=== PATIENT | female | born 1990 | race African-American/Black ===

== ENCOUNTER 2025-02-22 12:45 | Emergency (ER) | payer SELFPAY ==
[2025-02-22 12:49] VITALS: BP 146/95; PULSE 66; RESP 16; TEMP 36.6; O2SAT 100
--- NOTE | 2025-02-22 12:57 | ED.URI ---
HPI - URI/Sore Throat General Chief Complaint: Upper Respiratory Infection Stated Complaint: URI Time Seen by Provider: 02/22/25 12:55 Focused HPI: Patient is a 34-year-old female presents to the ER with a 2 day history of headache, dizziness, and abdominal discomfort. She reports her daughter has had the same symptoms for 1 extra day. Patient reports her daughter has had a fever and sore throat. She endorses a history of high blood pressure, sleep apnea, bariatric surgery, and asthma. Patient denies any recent wheezing, cough, or shortness of breath. GENERAL: Well-appearing, well-nourished, and in no acute distress. HEAD: Normocephalic, atraumatic. CHEST: Clear to auscultation. ?No respiratory distress. HEART: Regular rate and rhythm.? NEURO: ?Alert and oriented x3. Patient screened in triage and initial orders placed.? ?Additional care and disposition to be based upon?diagnostic testing and treatment. Related Data Allergies Allergy/AdvReac Type Severity Reaction Status Date / Time No Known Allergies Allergy Verified 02/22/25 12:51 Course Vital Signs Vital signs: Vital Signs Temperature 36.6 C 02/22/25 12:49 Pulse Rate 66 02/22/25 12:49 Respiratory Rate 16 02/22/25 12:49 Blood Pressure 146/95 H 02/22/25 12:49 Pulse Oximetry 100 02/22/25 12:49 Oxygen Delivery Room Air 02/22/25 12:49 Temperature 36.6 C 02/22/25 12:49 Pulse Rate 66 02/22/25 12:49 Respiratory Rate 16 02/22/25 12:49 Blood Pressure 146/95 H 02/22/25 12:49 Pulse Oximetry 100 02/22/25 12:49 Oxygen Delivery Room Air 02/22/25 12:49 MDM - URI/Sore Throat Lab Data Labs: Lab Results 02/22/25 Range/Units 13:00 Influenza A (RT-PCR) Negative (Negative) Influenza B (RT-PCR) Negative (Negative) RSV (RT-PCR) Negative (Negative) SARS-CoV-2 RNA (RT-PCR) Negative (Negative) Group A Strep (PCR) Not detected (Negative) Discharge Plan Discharge Clinical Impression: Viral infection, Upper respiratory infection Patient Disposition: Home Condition: Stable Instructions: Antibiotic Form, Viral Syndrome (ED), Cold Symptoms (ED) Patient Language: Maltese Prescriptions: New ondansetron 4 mg tablet,disintegrating 4 mg PO Q8H PRN (Reason: nausea and vomiting) Qty: 14 0RF naproxen [Naprosyn] 500 mg tablet 500 mg PO BID Qty: 20 0RF Follow-up/Referrals: PHYSICIAN NOT ON STAFF,NONSTAFF [Non-Staff] - Stand Alone Forms: Work/School Release IP
[2025-02-22 13:35] LABS: Strep Group A RT-PCR NOT DETECTED (Negative)
[2025-02-22 13:46] LABS: Influenza A QL RT-PCR Negative (Negative); Influenza B QL RT-PCR Negative (Negative); RSV RNA, RT-PCR Negative (Negative); SARS-CoV-2 RNA PCR Negative (Negative)
--- NOTE | 2025-02-22 14:29 | ED_ITS ---
HPI - URI/Sore Throat General Chief Complaint: Upper Respiratory Infection Stated Complaint: URI Time Seen by Provider: 02/22/25 12:55 History of Present Illness HPI Narrative: Pt presents with nasal congestion, sore throat, body aches and nausea for 2 days. Daughter has similar symptoms. Pt denies fever or cough or urinary symptoms. Pt is not vomiting and denies diarrhea. Related Data Allergies Allergy/AdvReac Type Severity Reaction Status Date / Time No Known Allergies Allergy Verified 02/22/25 12:51 Review of Systems Review of Systems: All systems reviewed & are unremarkable except as noted in HPI and below Exam Const: General: healthy appearing and no acute distress Nutritional Appearance: well nourished Orientation/consciousness: patient oriented x3 Limitations: no limitations HENMT: Head: normal to inspection Ears: TM's normal bilaterally Face/Nose/Sinus: Nasal discharge present Face and sinus: normal facial exam Mouth: Yes Normal oral and palatal mucosa present and Yes moist mucous mem branes Other: mild pharyngeal erythema no exudate Eyes: EOM: EOMs intact bilaterally Resp: Effort & Inspection: normal respiratory effort Auscultation: clear to auscultation bilaterally Cardio: Rate: regular rate Rhythm: regular rhythm GI: GI Palp: Yes Soft to palpation and No Tenderness to palpation present (GI) Auscultation: normal bowel sounds Back/Spine/Pelvis: Back: no CVA tenderness Skin: General skin exam: normal color Rashes: no rashes Wounds: no wounds Neuro: General: patient oriented x3, moves all extremities, no meningeal signs and no focal motor deficits Speech: normal speech Extrem: General: normal to inspection and no clubbing, cyanosis or edema Psych: Mental Status: mental status grossly normal Affect: normal affect Attitude: cooperative Course Vital Signs Vital signs: Vital Signs Temperature 97.9 F 02/22/25 12:49 Pulse Rate 66 02/22/25 12:49 Respiratory Rate 16 02/22/25 12:49 Blood Pressure 146/95 H 02/22/25 12:49 Pulse Oximetry 100 02/22/25 12:49 Oxygen Delivery Room Air 02/22/25 12:49 Temperature 97.9 F 02/22/25 12:49 Pulse Rate 66 02/22/25 12:49 Respiratory Rate 16 02/22/25 12:49 Blood Pressure 146/95 H 02/22/25 12:49 Pulse Oximetry 100 02/22/25 12:49 Oxygen Delivery Room Air 02/22/25 12:49 MDM - URI/Sore Throat MDM Narrative Medical decision making narrative: Pt presents with st body aches and nausea, strep and covid,flu, rsv swabs neg. likely viral uri. will prescribe some zofran and naprosyn and give pt 3 days off. Lab Data Labs: Lab Results 02/22/25 Range/Units 13:00 Influenza A (RT-PCR) Negative (Negative) Influenza B (RT-PCR) Negative (Negative) RSV (RT-PCR) Negative (Negative) SARS-CoV-2 RNA (RT-PCR) Negative (Negative) Group A Strep (PCR) Not detected (Negative) Discharge Plan Discharge Clinical Impression: Viral infection, Upper respiratory infection Patient Disposition: Home Condition: Stable Instructions: Antibiotic Form, Viral Syndrome (ED), Cold Symptoms (ED) Patient Language: Iranian Prescriptions: New ondansetron 4 mg tablet,disintegrating 4 mg PO Q8H PRN (Reason: nausea and vomiting) Qty: 14 0RF naproxen [Naprosyn] 500 mg tablet 500 mg PO BID Qty: 20 0RF Follow-up/Referrals: PHYSICIAN NOT ON STAFF,NONSTAFF [Non-Staff] - Stand Alone Forms: Work/School Release IP
--- OUTSIDE RECORDS SUMMARY | 2025-02-22 14:58 | XMS_ITS | Encounter Summary ---
Author Organization [facility] Address [address] [place] [address] Care Team Providers Care Steel Manager Name Role Phone Henry Suarez MD Unavailable Love Diaz BEHAVIORAL HEALTH TECH-HELPER ANIMAL LABORATORY Primary Care Provider + Love Diaz BEHAVIORAL HEALTH TECH-HELPER ANIMAL LABORATORY Unavailable [phone] Deyanira De La Fuente RN Unavailable Anabell Thompson MD Primary Care Provider Love Diaz BEHAVIORAL HEALTH TECH-HELPER ANIMAL LABORATORY Primary Care Provider + Aiyana Esposito Unavailable [phone] Reason for Visit * Reason Onset Date Comments Surgery Scheduling 11/13/2023 Pt has Flu, w ould like a Nurse call to discuss upcoming Surgery on Thursday11.16.23, Encounter Details Date Type Department Care Team (Late st Contact Info) Description 11/13/2023 Telephone [facility] - HOSPITAL ADMINISTRATIVE ASSISTANT [address] [place] [address] Izabella Inman MD [address] [facility] [address] [place] [address] Surgery Scheduling (Pt has Flu, would like a Nurse call to discuss upcoming Surgery on Thursday11.16.23, ) Social History Tobacco Use Types Packs/Day Years Used Date Smoking Tobacco: Never Smokeless Tobacco: Never Alcohol Use Standard Drinks/Week Comments Not Currently 0 (1 standard drink = 0.6 oz pur e alcohol) rare Overall Financial Resource Strain (CARDIA) Answe r Date Recorded How hard is it for you to pa y for the very basics like food, housing, medical care, and heating? Not hard at all 04/13/2023 PHQ-2 Answer Date Recorded Patient Health Questionnaire-2 Score 0 11/10/2023 [facility] of Occupat ional Health - Occupational Stress Questionnaire Answer Date Recorded Do you feel stress - tense, restless, nervous, or anxious, or unable to sleep at night because your mind is troubled all the time - these days? Not at all 04/13/2023 Hunger Vital Sign Answer Date Recorded Within the past 12 months, y ou worried that your food would run out before you got the money to buy more. Never true 04/13/20 23 Within the past 12 months, t he food you bought just didn't last and you didn't have money to get more. Never true 04/13/2023 PRAPARE - Transportation Answer Date Re corded In the past 12 months, has l ack of transportation kept you from medical appointments or from getting medications? No 04/03 In the past 12 months, has l ack of transportation kept you from meetings, work, or from getting things needed for daily living? No 04/13/2023 Housing Stability Vital Sign Answer Eloy e Recorded In the last 12 months, was t here a time when you were not able to pay the mortgage or rent on time? No 04/13/2023 In the last 12 months, how many places have you lived? 1 04/13/2023 In the last 12 months, was t here a time when you did not have a steady place to sleep or slept in a care home (including now)? No 04/13/2023 Comments No Sex and Gender Information Value Date Recorded Sex Assigned at Not on file Legal Sex Female 5:36 AM CALCINER OPERATOR Gender Identity Not on file Sexual Orientation Not on file documented as of this encounter Functional Status * Is person deaf or have serious hearing difficulty? Answer Date of Assessment Author No 04/13/2023 2:30 PM Doug Crane, RN * Is person blind or have serious difficulty seeing? Answer Date of Assessment Author No 04/13/2023 2:30 PM CDT Doug Bell RN * Does person have serious difficulty walking/climbing stairs? Answer Date of Assessment Author No 04/13/2023 2:30 PM CDT Doug Bell RN * Does person have difficulty dressing/bathing? Answer Date of Assessment Author No 04/13/2023 2:30 PM CDT Doug Bell RN * Does person have difficulty doing errands alone? Answer Date of Assessment Author No 04/13/2023 2:30 PM CDT Doug Bell RN documented as of this encounter Mental Status * Does person have difficulty concentrating/remembering/making decisions? Answer Entry Date Author No 04/13/2023 2:30 PM CDT Doug Bell RN documented in this encounter Miscellaneous Notes * Telephone Encounter - Ochoa Polk - 11/13/2023 4:32 PM CDT Left a message on patient's voicemail stating to not arrive to hospital on Wednesday 11/15 for procedure. I informed her that I will call the OR first thing Thursday morning to cancel and then I will call her to r/s for a later date. * Telephone Encounter - Isreal Last - 11/13/2023 3:57 PM CDT Pt has Flu, would like a Nurse call to discuss upcoming Surgery on 11.15.24, Pls call to determine if shd still come in, thank you. documented in this encounter Plan of Treatment Upcoming Encounters Date Type Department Care Team (Late st Contact Info) Description 04/19/2025 8:00 AM CDT Office Visit [facility] Medical [facility] - Pulmonology [address] [place] [address] Mario Decker MD [address] [place] [phone] 05/16/2025 8:20 AM CDT Office Visit [facility] - Family Medicine [address] [place] [address] Love Diaz, BEHAVIORAL HEALTH TECH-HELPER ANIMAL LABORATORY [address] [place] [address] documented as of this encounter Visit Diagnoses Not on filedocumented in this encounter Additional Health Concerns Infection Onset Date Last Indicated Resolved Time Influenza A or B 11/10/2023 11/10/2023 11/17/2023 4:33 AM CDT COVID-19 Under Investigation 09/06/2024 09/06/2024 09/06/2024 4:15 PM CALCINER OPERATOR documented as of this encounter Care Teams Steel Manager Relationship Specialty Start Date End Date Love Diaz, BEHAVIORAL HEALTH TECH-HELPER ANIMAL LABORATORY [address] [place] [address] PCP - General Nurse Practitioner 09/15/23 02/15/24 Love Diaz, BEHAVIORAL HEALTH TECH-HELPER ANIMAL LABORATORY [address] [place] [address] PCP - Attributed-[facility] STL 08/03/23 Anabell Thompson MD [address] [place] [address] PCP - General Internal Medicine 02/16/24 02/16/24 Love Diaz, BEHAVIORAL HEALTH TECH-HELPER ANIMAL LABORATORY [address] [place] [address] PCP - General Nurse Practitioner 02/17/24 Henry Suarez MD [id number] [place] [id number] Nurse Clinical Cardiovascular Disease 12/01/22 Deyanira De La Fuente, RN File KeeperDraw Bench Operator Helper 01/05/24 02/08/24 Aiyana Esposito Care Coordination Specialist Care Management 11/15/24 12/30/24 documented as of this encounter
--- OUTSIDE RECORDS SUMMARY | 2025-02-22 14:58 | XMS_ITS | Clinical Summary ---
Author Organization [facility] Address [facility] [place] [address] Care Team Providers Care Ship Design Teacher Name Role Phone Love Diaz NP Primary Care Provider [phone] Allergies No known active allergies Medications labetalol 200 MG tablet Take 400 mg by mouth 2 (two) times daily. Active lisinopril 20 MG tablet Take 20 mg by mouth 2 (two) times daily. 04/16/2020 Active metoprolol succinate ER 50 MG 24 hr tablet Take 50 mg by mouth 2 (two) times daily. 03/11/2020 Active pantoprazole EC 40 MG tablet Take 40 mg by mouth 2 (two) times daily. 04/12/2020 Active guaiFENesin ER (MUCINEX) 600 MG 12 hr tablet Take 2 tablets (1,200 mg total) by mouth 2 (two) times daily. 28 tablet 07/06/2022 Active albuterol sulfate HFA 108 (90 Base) MCG/ACT inhaler Inhale 2 puffs into the lungs every 6 (six) hours as needed for Wheezing. 8 g 07/06/2022 Active Active Problems No known active problems Social History Tobacco Use Types Packs/Day Years Used Date Smoking Tobacco: Never Passive Smoke Exposure: Never Smokeless Tobacco: Never Tobacco Cessation:Counseling Given: Not Answered Alcohol Use Standard Drinks/Week Comments Not Currently 0 (1 standard drink = 0.6 oz pur e alcohol) socially Comments No Sex and Gender Information Value Date Recorded Sex Assigned at Female 09/30/2024 2:20 PM SENIOR INTEGRATION DEVELOPER Legal Sex Female 11:16 PM CDT Gender Identity Not on file Sexual Orientation Not on file Last Filed Vital Signs Vital Sign Reading Time Taken Comments Blood Pressure 148/95 09/30/2024 5:00 PM SENIOR INTEGRATION DEVELOPER Pulse 93 09/30/2024 5:00 PM SENIOR INTEGRATION DEVELOPER Temperature 36.1 C (97 F) 09/30/2024 2:09 PM SENIOR INTEGRATION DEVELOPER Respiratory Rate 16 09/30/2024 5:00 PM SENIOR INTEGRATION DEVELOPER Oxygen Saturation 100% 09/30/2024 5:00 PM SENIOR INTEGRATION DEVELOPER Inhaled Oxygen Concentration - - Weight 124.7 kg (275 lb) 09/30/2024 2:09 PM SENIOR INTEGRATION DEVELOPER Height 167.6 cm (5' 6) 09/30/2024 2:09 PM SENIOR INTEGRATION DEVELOPER Body Mass Index 44.39 09/30/2024 2:09 PM SENIOR INTEGRATION DEVELOPER Plan of Treatment Health Maintenance Due Date Last Done Comments Annual Physical 1992 Hepatitis B Vaccines (1 of 3 - 19+ 3-dose series) 2008 Pneumococcal Vaccine: Pediatrics (0 to 5 Years) and At-Risk Patients (6 to 49 Years) (1 of 2 - PCV) 2008 HPV Vaccines (1 - 3-dose SCDM series) 2016 COVID-19 Vaccine (3 - 2023- season) 2024 02/20/2021, 12/10/2020 Cervical Cancer Screening Pap Smear (Age 30 to 64) Every 3 Years 09/24/2025 09/24/2022 DTaP, Tdap and Td Vaccines (5 - Td or Tdap) 09/08/2027 09/08/2017, 03/27/1995, 04/18/1994, Additional history exists Cervical Cancer Screening Pap with HPV Testing (Age 30 to 64) Every 5 Years 09/24/2027 09/24/2022 Cervical Cancer Screening with HPV 09/24/2027 Hepatitis C Completed 02/13/2024 Meningococcal B Vaccine Aged Out No l onger eligible based on patient's age to complete this topic Meningococcal Vaccine Aged Out No ezra wade eligible based on patient's age to complete this topic RSV Immunizations Under 20 Months Aged Out No longer eligible based on patient's age to complete this topic Insurance [employer] Care Teams Ship Design Teacher Relationship Specialty Start Date End Date Love Diaz NP [address] [place] [address] [address] [place] [address] PCP - General Nurse Practitioner Family 09/30/24
--- OUTSIDE RECORDS SUMMARY | 2025-02-22 14:58 | XMS_ITS | Encounter Summary ---
Author Organization [facility] Address [address] [address] Care Team Providers Care Guinea Pig Breeder Name Role Phone Henry Suarez MD Unavailable [phone] Love Diaz MACHINE ADJUSTER LEADER-POST CLOSING SPECIALIST Unavailable [phone] Love Diaz MACHINE ADJUSTER LEADER-POST CLOSING SPECIALIST Primary Care Provider + Reason for Visit * Reason Onset Date Comments Referral 02/15/2025 Encounter Details Date Type Department Care Team (Late st Contact Info) Description 02/15/2025 Telephone [facility] Breast Care [facility] [place], [place] [id number] Tiera Rangel, priming mixture carrier Social History Tobacco Use Types Packs/Day Years Used Date Smoking Tobacco: Never Smokeless Tobacco: Never Alcohol Use Standard Drinks/Week Comments Yes 0 (1 standard drink = 0.6 oz pur e alcohol) socially- less than monthly Overall Financial Resource Strain (CARDIA) Answe r Date Recorded How hard is it for you to pa y for the very basics like food, housing, medical care, and heating? Not hard at all 04/13/2023 PHQ-2 Answer Date Recorded Patient Health Questionnaire-2 Score 1 02/09/2025 [facility] [place] of Occupat ional Health - Occupational Stress [...] place to sleep or slept in a assisted (including now)? No 04/13/2023 Comments No Sex and Gender Information Value Date Recorded Sex Assigned at Not on file Legal Sex Female 5:36 AM POLICE ACADEMY PROGRAM COORDINATOR Gender Identity Not on file Sexual Orientation Not on file documented as of this encounter Functional Status * Is person deaf or have serious hearing difficulty? Answer Date of Assessment Author No 04/13/2023 2:30 PM CDT Doug Bell, GARCIA * Is person blind or have serious difficulty seeing? Answer Date of Assessment Author No 04/13/2023 2:30 PM LEXIIT Doug Bell, GARCIA * Does person have serious difficulty walking/climbing stairs? Answer Date of Assessment Author No 04/13/2023 2:30 PM LEXIIT Doug Bell, RN * Does person have difficulty dressing/bathing? Answer Date of Assessment Author No 04/13/2023 2:30 PM Doug Crane RN * Does person have difficulty doing errands alone? Answer Date of Assessment Author No 04/13/2023 2:30 PM Doug Crane RN documented as of this encounter Mental Status * Does person have difficulty concentrating/remembering/making decisions? Answer Entry Date Author No 04/13/2023 2:30 PM CDT Doug Bell RN documented in this encounter Miscellaneous Notes * Telephone Encounter - Tiera Rangel RN - 02/15/2025 2:51 PM CDT Love Diaz referral; called patient for formal risk assessment and scheduling with breast specialist. No answer, LVM with CB info. Called and left another , MCM sent, provider notified. documented in this encounter Plan of Treatment Upcoming Encounters Date Type Department Care Team (Late st Contact Info) Description 04/19/2025 8:00 AM CDT Office Visit [facility] - Pulmonology [address] [place] [phone] Mario Decker MD [address] [place] [id number] 05/16/2025 8:20 AM CDT Office Visit [facility] - Family Medicine [address] [place] [address] Love Diaz APRN-CNP [address] [place] [address] documented as of this encounter Visit Diagnoses Not on filedocumented in this encounter Care Teams Guinea Pig Breeder Relationship Specialty Start Date End Date Love Diaz APRN-POST CLOSING SPECIALIST [address] [place] [address] PCP - Attributed-[facility] STL 08/03/23 Love Diaz APRN-POST CLOSING SPECIALIST [address] [place] [phone] PCP - General Nurse Practitioner 02/17/24 [place] [id number] [address] Flame Gouger Cardiovascular Disease 12/01/22 documented as of this encounter
--- OUTSIDE RECORDS SUMMARY | 2025-02-22 14:58 | XMS_ITS | Clinical Summary ---
Author Organization [email or web address] Esa Michael Address [address] [facility] [place] [address] Phone Care Team Providers Care Tie Carrier Name Role Phone Unavailable Primary Care Provider Unavailabl e Allergies Active Allergy Reactions Criticality Noted Date Comments Pineapple Itching,Swelling Medium 01/01/2022 Fresh pineapple only Fresh pineapple only Fresh pineapple only Shellfish Containing Products Itching,Swelling Medium 01/01/2022 Fresh shrimp only Tree Nuts Other (See Comments),Swelling Medium 01/01/2022 Positive on an allergy test Other reaction(s): Other (See Comments) Positive on an allergy test Medications benzonatate (TESSALON) 100 mg capsule Take 100 mg by mouth 3 times daily. Active albuterol sulfate HFA 90 mcg/actuation aerosol inhaler Take 2 Puffs by inhalation. 2 Active amLODIPine (NORVASC) 10 mg tablet Take 10 mg by mouth daily. 1 Active ascorbic acid, vitamin C, (VITAMIN C) 1,000 mg Tablet Take 1,000 mg by mouth daily. Active cetirizine (ZyrTEC) 10 mg tablet Take 10 mg by mouth daily. 3 Active EPINEPHrine (EPIPEN) 0.3 mg/0.3 mL Auto-Injector Inject 0.3 mg by intramuscular injection. 3 Active hydroCHLOROthi azide 12.5 mg tablet Take 12.5 mg by mouth daily. 3 Active lisinopriL (PRINIVIL) 20 mg tablet Take 1 Tablet by mouth 2 times daily. 1 Active magnesium hydroxide (MILK OF MAGNESIA) 400 mg/5 mL suspension Take 15 mL by mouth daily. 3 Active meloxicam (MOBIC) 7.5 mg tablet Take 7.5 mg by mouth. 3 Active metoprolol succinate (TOPROL XL) 50 mg Extended Release 24 hour tablet Take 75 mg by mouth 2 times daily. 1 Active omeprazole (PriLOSEC) 40 mg Capsule, Delayed Release(E.C.) TAKE 1 CAPSULE (40 MG) BY MOUTH TWICE A DAY 1 Active ondansetron (ZOFRAN ODT) 4 mg Tablet, Rapid Dissolve Take 4 mg by mouth every 6 hours as needed. 0 Active labetaloL (NORMODYNE) 200 mg tablet Take 400 mg by mouth 2 times daily. Active Active Problems Problem Noted Date Diagnosed Date Morbid obesity 07/10/2023 Gastroesophageal reflux disease 07/10/2023 Moderate recurrent major depression 07/10/2023 Mild intermittent asthma without complication Overview (07/10/2023): Last Assessment & Plan: Chronic, stable, controlled with PRN inhaler-continued on albuterol as directed as needed. Last Assessment & Plan: Chronic, stable, controlled with PRN inhaler-continued on albuterol as directed as needed. Fatigue 07/07/2023 S/P gastric bypass 04/13/2023 Physical exam, annual 12/28/2022 Overview (07/10/2023): Last Assessment & Plan: Reviewed past and current medical history, surgical history, social history, family history, current medications, and allergies. A ROS and PE were performed. Medications were refilled. Discussed well woman exam/cervical cancer screening, monthly breast self-exams, and recommended immunizations. Patient will follow-up in 6 months for further evaluation and management or sooner if needed. Prediabetes 09/09/2022 Overview (07/10/2023): Last Assessment & Plan: Chronicity and stability unknown, contemplating weight loss surgery-encouraged weight loss and avoidance of high carbohydrate diet, with a goal of at least 150 minutes of exercise/week. Last Assessment & Plan: Chronicity and stability unknown, contemplating weight loss surgery-encouraged weight loss and avoidance of high carbohydrate diet, with a goal of at least 150 minutes of exercise/week. Thrombocythemia 08/12/2022 Overview (07/10/2023): Last Assessment & Plan: Chronic, stable-encouraged to schedule appointment with fire hose curer, previously referred. Last Assessment & Plan: Chronic, stable-encouraged to schedule appointment with fire hose curer, previously referred. Myelolipoma of right adrenal gland 08/07/2022 Overview (07/10/2023): Last Assessment & Plan: Chronicity and stability unknown-encouraged follow-up with wide area network engineer as recommended. Last Assessment & Plan: Chronicity and stability unknown-encouraged follow-up with wide area network engineer as recommended. Female hirsutism 08/07/2022 Overview (07/10/2023): Last Assessment & Plan: Chronic, stable-advised to follow with meat packer and wide area network engineer as recommended. Last Assessment & Plan: Chronic, stable-advised to follow with meat packer and wide area network engineer as recommended. Seasonal rhinitis 01/03/2022 Overview (07/10/2023): Last Assessment & Plan: Chronic, stable, controlled with medication-continued on cetirizine. Last Assessment & Plan: Chronic, stable, controlled with medication-continued on cetirizine. Morbid obesity with BMI of 50.0-59.9, adult 05/0 01/2022 Overview (07/10/2023): Last Assessment & Plan: Chronic, with recent 12 lb weight loss s/p gastric bypass surgery, on post- operative day #3 Encouraged to keep scheduled follow-up visit with surgeon Instructed to monitor blood pressure twice daily, explained that with further weight loss it is highly likely that her blood pressure medication will require periodic adjustments in dose, and that she may be able to come off of one or more of her medications in time Class 3 severe obesity due t o excess calories with serious comorbidity and body mass index (BMI) of 50.0 to 59.9 in adult 12/06/2021 Overview (07/10/2023): Last Assessment & Plan: Chronic, with recent 12 lb weight loss s/p gastric bypass surgery, on post- operative day #3 Encouraged to keep scheduled follow-up visit with surgeon Instructed to monitor blood pressure twice daily, explained that with further weight loss it is highly likely that her blood pressure medication will require periodic adjustments in dose, and that she may be able to come off of one or more of her medications in time Chest tightness 09/04/2021 Overview (07/10/2023): Last Assessment & Plan: Chronic, episodic-encouraged to follow-up with human resources intern and manager telecom as recommended. Last Assessment & Plan: Chronic, episodic-encouraged to follow-up with human resources intern and manager telecom as recommended. Suspected COVID-19 virus infection 08/22/2021 Overview (07/10/2023): Last Assessment & Plan: Recommended symptomatic treatment with [id number] medications and reminded can use albuterol inhaler (already has) as directed as needed for shortness of breath and chest tightness. She has fulfilled the isolation requirements recommended by the CDC, however advised to continue to isolate until results of PCR testing are known (rapid COVID 19 test negative), and if positive, recommended wearing a mask at a minumum through Thursday when around other people. Instructed to go to ER for worsening symptoms, otherwise follow-up with PCP if symptoms are not improving. Menses, irregular 08/09/2021 Overview (07/10/2023): Last Assessment & Plan: Chronic, controlled-continued on norethindrone. Encouraged follow-up with meat packer as recommended. Last Assessment & Plan: Chronic, controlled-continued on norethindrone. Encouraged follow-up with meat packer as recommended. Other constipation 07/02/2021 Overview (07/10/2023): Last Assessment & Plan: Chronic, stable, likely related to daily iron supplement-recommended 1-2 Colace HS as needed. Last Assessment & Plan: Chronic, episodic, not currently on daily medication-encouraged to use MiraLax as directed as needed. Last Assessment & Plan: Chronic, stable, likely related to daily iron supplement-recommended 1-2 Colace HS as needed. Last Assessment & Plan: Chronic, episodic, not currently on daily medication-encouraged to use MiraLax as directed as needed. ROSE (generalized anxiety disorder) 07/02/2021 Overview (07/10/2023): Last Assessment & Plan: Chronic, stable, controlled with medication-continued on Lexapro. Encouraged follow-up with Psychiatry as recommended. Last Assessment & Plan: Chronic, stable, controlled with medication-continued on Lexapro. Encouraged follow-up with Psychiatry as recommended. Bilateral low back pain with right-sided sciatic a 07/02/2021 Overview (07/10/2023): Last Assessment & Plan: Chronic, episodic, with worsening upper right thigh pain-ordered x-ray of lumbar spine and right hip. Last Assessment & Plan: Chronic, stable, controlled with PRN medication-advised can take Tylenol as directed as needed. Last Assessment & Plan: Chronic, episodic, with worsening upper right thigh pain-ordered x-ray of lumbar spine and right hip. Last Assessment & Plan: Chronic, stable, controlled with PRN medication-advised can take Tylenol as directed as needed. Bilateral lower extremity edema 07/02/2021 Overview (07/10/2023): Last Assessment & Plan: Chronic, stable, controlled with medication-continued on hydrochlorothiazide. Last Assessment & Plan: Chronic, stable, controlled with medication-continued on hydrochlorothiazide. Moderate episode of recurrent major depressive d isorder 12/28/2020 Overview (07/10/2023): Last Assessment & Plan: Chronic, stable, controlled with medication-continued on Lexapro. Encouraged follow-up with Psychiatry as recommended. Last Assessment & Plan: Chronic, stable, controlled with medication-continued on Lexapro. Encouraged follow-up with Psychiatry as recommended. Anxiety disorder 12/28/2020 Gastroesophageal reflux dise ase with esophagitis without hemorrhage 08/03/2020 Overview (07/10/2023): Last Assessment & Plan: Continue your pantoprazole BID Pepcid [place] diet. Last Assessment & Plan: Chronic, stable, controlled with medication-continued on sucralfate, pantoprazole, and famotidine. Advised to follow-up with vocational teacher as recommended. Last Assessment & Plan: Continue your pantoprazole BID Pepcid [place] diet. Last Assessment & Plan: Chronic, stable, controlled with medication-continued on sucralfate, pantoprazole, and famotidine. Advised to follow-up with vocational teacher as recommended. Shortness of breath 05/03/2020 Overview (07/10/2023): Last Assessment & Plan: Chronic, stable, likely multifactorial-continued on albuterol as directed as needed. Advised to follow-up with human resources intern and manager telecom as recommended. Encouraged weight loss. Anemia 05/03/2020 Overview (07/10/2023): Last Assessment & Plan: Chronic, controlled at last check, not on multivitamin or iron supplement-will monitor CBC periodically. Last Assessment & Plan: Chronic, controlled at last check, not on multivitamin or iron supplement-will monitor CBC periodically. Essential hypertension 03/01/2020 Overview (07/10/2023): Last Assessment & Plan: Chronic, stable, controlled on medication Continue on amlodipine, lisinopril, and metoprolol XL, no adjustments made in dose of medication Encouraged to monitor blood pressure twice daily, notifying office if getting readings <110 systolic and/or < 60 diastolic Instructed to keep follow up with surgeon as scheduled and to follow-up in office for blood pressure check the following week, sooner if needed Recommended monitoring blood pressure twice daily, explained that with further weight loss it is highly likely that her blood pressure medication will require periodic adjustments in dose, and that she may be able to come off of one or more of her medications in time Last Assessment & Plan: Chronic, stable, controlled on medication Continue on amlodipine, lisinopril, and metoprolol XL, no adjustments made in dose of medication Encouraged to monitor blood pressure twice daily, notifying office if getting readings <110 systolic and/or < 60 diastolic Instructed to keep follow up with surgeon as scheduled and to follow-up in office for blood pressure check the following week, sooner if needed Recommended monitoring blood pressure twice daily, explained that with further weight loss it is highly likely that her blood pressure medication will require periodic adjustments in dose, and that she may be able to come off of one or more of her medications in time Pulmonary hypertension 12/12/2019 Overview (07/10/2023): Last Assessment & Plan: Chronicity and stability unknown-encouraged to follow-up with cardiology and pulmonology as recommended. Last Assessment & Plan: Chronicity and stability unknown-encouraged to follow-up with cardiology and pulmonology as recommended. Palpitations 12/12/2019 Overview (07/10/2023): Last Assessment & Plan: Chronic, episodic-encouraged to follow-up with human resources intern as recommended. Last Assessment & Plan: Chronic, episodic-encouraged to follow-up with human resources intern as recommended. Obstructive sleep apnea 12/12/2019 Overview (07/10/2023): Last Assessment & Plan: Chronic, stability unknown-encouraged weight loss. Advised follow-up with sleep medicine as recommended. Last Assessment & Plan: Chronic, stability unknown-encouraged weight loss. Advised follow-up with sleep medicine as recommended. Encounters Date Type Department Care Team Description 02/15/2025 External Device Data [facility] Provider, Abstract 02/14/2025 External Device Data [facility] Provider, Abstract 01/17/2025 External Device Data [facility] Provider, Abstract 12/27/2024 External Device Data [facility] Provider, Abstract 12/27/2024 External Device Data [facility] Provider, Abstract 12/22/2024 External Device Data [facility] Provider, Abstract 12/21/2024 External Device Data [facility] Provider, Abstract 12/20/2024 External Device Data [facility] Provider, Abstract from Last 3 Months Family History Medical History Relation Name Comments Breast Cancer Maternal Grandmother Relation Name Status Comments Maternal Grandmother Social History Tobacco Use Types Packs/Day Years Used Date Smoking Tobacco: Never Smokeless Tobacco: Never Tobacco Cessation:Counseling Given: Not Answered Alcohol Use Standard Drinks/Week Comments Yes 0 (1 standard drink = 0.6 oz pur e alcohol) socially Comments No Sex and Gender Information Value Date Recorded Sex Assigned at Not on file Legal Sex Female 2:20 PM CDT Gender Identity Not on file Sexual Orientation Not on file Last Filed Vital Signs Vital Sign Reading Time Taken Comments Blood Pressure 138/92 10/07/2023 3:38 PM JUICE SCALEMAN Pulse 99 10/07/2023 3:38 PM JUICE SCALEMAN Temperature 36.8 C (98.3 F) 05/06/2022 5:41 PM CDT Respiratory Rate 18 10/07/2023 3:38 PM JUICE SCALEMAN Oxygen Saturation 99% 07/10/2023 9:05 AM JUICE SCALEMAN Inhaled Oxygen Concentration - - Weight 142.9 kg (315 lb) 10/07/2023 3:38 PM JUICE SCALEMAN Height 165.1 cm (5' 5) 10/07/2023 3:38 PM JUICE SCALEMAN Body Mass Index 52.42 10/07/2023 3:38 PM JUICE SCALEMAN Plan of Treatment Health Maintenance Due Date Last Done Comments Pre-Diabetes and Diabetes Screening 1989 HPV VACCINES (1 - 3-dose series) 2004 HEPATITIS B VACCINES (1 of 3 - 19+ 3-dose series) 2008 HPV/Cotest (21-29) 2010 CERVICAL CANCER SCREENING 2019 HPV/Cotest (30-65) 2019 PAP SMEAR 2019 COVID-19 Vaccine (3 - 2023-2 5 season) 2024 02/20/2021, 12/10/2020 INFLUENZA VACCINE (#1) 2025 , 06/18/2022, 06/18/2022, Additional history exists DTAP/TDAP/TD VACCINES (5 - T d or Tdap) 09/08/2027 09/08/2017, 03/27/1995, 04/18/1994, Additional history exists Insurance [facility] [id number] OUT OF NETWORK [place] [id number]
--- OUTSIDE RECORDS SUMMARY | 2025-02-22 14:58 | XMS_ITS ---
Author Organization [facility] Address [address] [place] [address] Care Team Providers [employer] Store Product Demonstrator Name Role Phone Henry Brown MD Unavailable [phone] Love Diaz NP Primary Care Provider [phone] Active Problems Problem Noted Date Diagnosed Date Abnormal resting electrocardiogram findings 11/02 Congenital umbilical hernia 11/25/2023 Sinus tachycardia 11/25/2023 Gastroesophageal reflux disease 07/10/2023 Fatigue 07/07/2023 Physical exam, annual 12/28/2022 Assessment & Plan (12/28/2022 9:46 AM CDT): Reviewed past and current medical history, surgical history, social history, family history, current medications, and allergies. A ROS and PE were performed. Medications were refilled. Discussed well woman exam/cervical cancer screening, monthly breast self-exams, and recommended immunizations. Patient will follow-up in 6 months for further evaluation and management or sooner if needed. Prediabetes 09/09/2022 Assessment & Plan (12/28/2022 9:34 AM CDT): Chronicity and stability unknown, contemplating weight loss surgery-encouraged weight loss and avoidance of high carbohydrate diet, with a goal of at least 150 minutes of exercise/week. Acanthosis nigricans 08/12/2022 Assessment & Plan (12/28/2022 9:36 AM CDT): Chronic, stable-will continue to monitor for diabetes. Encouraged weight loss. Assessment & Plan (08/12/2022 8:07 AM REGISTRATION MANAGER): Chronicity and stability unknown-patient has been referred to gynecology due to right ovarian cyst, also being seen by endocrinology for new finding of myelolipoma right adrenal gland, explained both can address concerns regarding unwanted hair growth and possible PCOS. Thrombocytosis 08/12/2022 Assessment & Plan (12/28/2022 9:35 AM CDT): Chronic, stable-encouraged to schedule appointment with public events facilities rental manager, previously referred. Assessment & Plan (08/12/2022 8:07 AM REGISTRATION MANAGER): Chronic, worsening-referred to Hematology for further evaluation and management. Female hirsutism 08/07/2022 Assessment & Plan (12/28/2022 9:37 AM CDT): Chronic, stable-advised to follow with diamond powder technician and cleaner industrial as recommended. Assessment & Plan (08/12/2022 8:05 AM REGISTRATION MANAGER): Chronic, stable-patient has been referred to gynecology due to right ovarian cyst, also being seen by endocrinology for new finding of myelolipoma right adrenal gland, explained both can address concerns regarding unwanted hair growth and possible PCOS. Myelolipoma of right adrenal gland 08/07/2022 Assessment & Plan (12/28/2022 9:36 AM CDT): Chronicity and stability unknown-encouraged follow-up with cleaner industrial as recommended. Assessment & Plan (08/12/2022 8:03 AM REGISTRATION MANAGER): Chronicity and stability unknown-reassured patient benign lesion, however referred to cleaner industrial for further evaluation and monitoring/management if needed. Seasonal rhinitis 01/03/2022 Assessment & Plan (12/28/2022 9:37 AM CDT): Chronic, stable, controlled with medication-continued on cetirizine. Assessment & Plan (01/03/2022 4:43 PM CDT): Chronic, stable, controlled with as needed medication-refills for cetirizine sent to pharmacy per patient request. Heart palpitations 12/06/2021 Assessment & Plan (12/28/2022 9:38 AM CDT): Chronic, episodic-encouraged to follow-up with mechanical unit repairer as recommended. Assessment & Plan (01/03/2022 4:40 PM CDT): Chronic, episodic, uncontrolled, with ER evaluation last night-encouraged to keep consultation appointment with Dr. Mcdowell scheduled for 01/16/2022. Assessment & Plan (12/06/2021 5:51 AM CDT): Chronic, worsening per patient report, occurring with increased frequency, EKG with normal sinus rhythm and no ischemic changes-referred to Cardiology for 2nd opinion. Class 3 severe obesity with serious comorbidity and body mass index (BMI) of 45.0 to 49.9 in adult 12/06/2021 Assessment & Plan (04/20/2023 8:52 PM CDT): Chronic, with recent 12 lb weight loss [...] or more of her medications in time Assessment & Plan (12/28/2022 9:38 AM CDT): Chronic, worsening, contemplating weight loss surgery-encouraged to monitor daily caloric intake and portion sizes and to exercise most days of the week, for goal of at least 150 minutes of exercise per week. Assessment & Plan (08/12/2022 8:04 AM REGISTRATION MANAGER): Chronic, worsening per patient report, not improving with dietary changes, however stable since 06/2022-referred to cleaner industrial for further evaluation and management. Assessment & Plan (01/03/2022 4:37 PM CDT): Chronic, stable-encouraged to schedule consultation with Dr. Ponce regarding weight loss and lifestyle management. Assessment & Plan (12/06/2021 5:54 AM CDT): Chronic, worsening, is no longer seen weight loss specialist, uncertain as to reason why-suggested patient schedule an appointment with Dr. Ponce for weight loss and lifestyle management. Chest tightness 09/04/2021 Assessment & Plan (12/28/2022 9:39 AM CDT): Chronic, episodic-encouraged to follow-up with mechanical unit repairer and biodiesel operations manager as recommended. Assessment & Plan (09/04/2021 1:30 PM REGISTRATION MANAGER): Acute, intermittent-started on prednisone 20 mg 1 tablet twice daily x5 days. Encouraged to use albuterol inhaler as directed as needed for chest tightness, wheezing. and coughing jags. Instructed to go to ER if difficulty breathing or if not getting relief of symptoms with inhaler. Voiced understanding. Menses, irregular 08/09/2021 Assessment & Plan (12/28/2022 9:39 AM CDT): Chronic, controlled-continued on norethindrone. Encouraged follow-up with diamond powder technician as recommended. ROSE (generalized anxiety disorder) 07/02/2021 Assessment & Plan (12/28/2022 9:40 AM CDT): Chronic, stable, controlled with medication-continued on Lexapro. Encouraged follow-up with Psychiatry as recommended. Assessment & Plan (01/03/2022 4:41 PM CDT): Chronic, improved on dosage adjustment, ROSE-7=5, now established with a psychiatrist-continued on Lexapro and medications per psychiatrist. Encouraged to keep recommended follow-up with psychiatrist and to discuss referral to psychologist/therapist. Instructed to go to ER if suicidal ideation or thoughts of harming self or others. Assessment & Plan (12/06/2021 5:49 AM CDT): Chronic, uncontrolled, on medication-increased Lexapro from 10 mg once daily to 20 mg once daily. Advised if she thinks she is having side effects to the medication increase, to notify office immediately. Instructed if suicidal ideation or thoughts of harming self or others, to go to ER or call 911/suicide hotline. She was previously referred to a psychologist for counseling, again advised calling insurance company for a list of providers, then calling provider to schedule an appointment. Again, recommended that she consider evaluation by a psychiatrist, instructing to call insurance for list of providers, then call to schedule to an appointment for evaluation. Recommended follow-up in 4 weeks. Assessment & Plan (09/04/2021 1:31 PM REGISTRATION MANAGER): Chronic, stable, uncontrolled, not on medication, referred at last visit to a psychiatrist and psychologist-encouraged to make appointment with psychiatrist and psychologist as previously discussed. Also, previous started on Lexapro which she stopped taking due to suspected side effect of low-grade fever, advised okay to restart Lexapro 10 mg once daily if desired. Assessment & Plan (07/02/2021 2:37 PM REGISTRATION MANAGER): Chronic, stable, uncontrolled, not on medication previously prescribed by another provider-advised to restart Lexapro at 5 mg daily x1 week, then to increase dose to 10 mg daily. Referred to Psychiatry and Psychology for further evaluation and management. Recommended follow-up in 4 weeks. Moderate episode of recurrent major depressive d isorder 07/02/2021 Assessment & Plan (12/28/2022 9:40 AM CDT): Chronic, stable, controlled with medication-continued on Lexapro. Encouraged follow-up with Psychiatry as recommended. Assessment & Plan (01/03/2022 4:41 PM CDT): Chronic, improved on dosage adjustment, PHQ-9=6, now established with a psychiatrist-continued on Lexapro and medications per psychiatrist. Encouraged to keep recommended follow-up with psychiatrist and to discuss referral to psychologist/therapist. Instructed to go to ER if suicidal ideation or thoughts of harming self or others. Assessment & Plan (12/06/2021 5:49 AM CDT): Chronic, uncontrolled, on medication-increased Lexapro from 10 mg once daily to 20 mg once daily. Advised if she thinks she is having side effects to the medication increase, to notify office immediately. Instructed if suicidal ideation or thoughts of harming self or others, to go to ER or call 911/suicide hotline. She was previously referred to a psychologist for counseling, again advised calling [employer] for a list of providers, then calling provider to schedule an appointment. Again, recommended that she consider evaluation by a psychiatrist, instructing to call insurance for list of providers, then to call to schedule an appointment for evaluation. Recommended follow-up in 4 weeks. Assessment & Plan (09/04/2021 1:31 PM REGISTRATION MANAGER): Chronic, stable, uncontrolled, not on medication, referred at last visit to a psychiatrist and psychologist-encouraged to make appointment with psychiatrist and psychologist as previously discussed. Also, previous started on Lexapro which she stopped taking due to suspected side effect of low-grade fever, advised okay to restart Lexapro 10 mg once daily if desired. Assessment & Plan (07/02/2021 2:37 PM REGISTRATION MANAGER): Chronic, stable, uncontrolled, not on medication previously prescribed by another provider-advised to restart Lexapro at 5 mg daily x1 week, then to increase dose to 10 mg daily. Referred to Psychiatry and Psychology for further evaluation and management. Recommended follow-up in 4 weeks. Bilateral low back pain with right-sided sciatic a 07/02/2021 Assessment & Plan (12/28/2022 9:40 AM CDT): Chronic, stable, controlled with PRN medication-advised can take Tylenol as directed as needed. Assessment & Plan (09/04/2021 1:29 PM REGISTRATION MANAGER): Chronic, currently asymptomatic, with x-rays ordered at initial/last visit- encouraged to get x-ray of lumbar spine along with x-ray of right hip for persistent right upper anterior thigh pain. Assessment & Plan (07/02/2021 2:38 PM REGISTRATION MANAGER): Chronic, episodic, with worsening upper right thigh pain-ordered x-ray of lumbar spine and right hip. Other constipation 07/02/2021 Assessment & Plan (12/28/2022 9:39 AM CDT): Chronic, episodic, not currently on daily medication-encouraged to use MiraLax as directed as needed. Assessment & Plan (07/02/2021 2:39 PM REGISTRATION MANAGER): Chronic, stable, likely related to daily iron supplement-recommended 1-2 Colace HS as needed. Bilateral lower extremity edema 07/02/2021 Assessment & Plan (12/28/2022 9:39 AM CDT): Chronic, stable, controlled with medication-continued on hydrochlorothiazide. Assessment & Plan (07/02/2021 2:40 PM REGISTRATION MANAGER): Chronic, stable, waxes and wanes per patient, on daily diuretic-continued on hydrochlorothiazide and encouraged to keep follow-up appointment with mechanical unit repairer, Dr. Brown. Gastroesophageal reflux dise ase with esophagitis without hemorrhage 08/03/2020 Assessment & Plan (12/28/2022 9:41 AM CDT): Chronic, stable, controlled with medication-continued on sucralfate, pantoprazole, and famotidine. Advised to follow-up with coal handling supervisor as recommended. Assessment & Plan (09/04/2021 1:33 PM REGISTRATION MANAGER): Chronic, stable, controlled with medication-continued on omeprazole, famotidine, and sucralfate per coal handling supervisor. Assessment & Plan (07/02/2021 2:35 PM REGISTRATION MANAGER): Chronic, stable, uncontrolled per patient report-continued on omeprazole, sucralfate, famotidine, and Zofran as directed. Encouraged to keep appointment today with coal handling supervisor to discuss symptoms. Assessment & Plan (08/03/2020 1:14 PM REGISTRATION MANAGER): Continue your pantoprazole BID Pepcid [place] diet. Shortness of breath 05/03/2020 Assessment & Plan (12/28/2022 9:41 AM CDT): Chronic, stable, likely multifactorial-continued on albuterol as directed as needed. Advised to follow-up with mechanical unit repairer and biodiesel operations manager as recommended. Encouraged weight loss. Assessment & Plan (01/03/2022 4:39 PM CDT): Chronic, stable, now established with a biodiesel operations manager with recent PFT-encouraged to keep recommended follow-up appointment with biodiesel operations manager, Dr. Lyons. Continued on albuterol inhaler as directed as needed. Assessment & Plan (12/06/2021 5:52 AM CDT): Chronic, stable, previously referred to pulmonology-advised to call to schedule an appointment. Assessment & Plan (09/04/2021 1:37 PM REGISTRATION MANAGER): Acute, intermittent-started on prednisone 20 mg 1 tablet twice daily x5 days. Encouraged to use albuterol inhaler as directed as needed for chest tightness, wheezing. and coughing jags. Instructed to go to ER if difficulty breathing or if not getting relief of symptoms with inhaler. Voiced understanding. Assessment & Plan (07/02/2021 2:32 PM REGISTRATION MANAGER): Chronic, episodic, stable, likely multifactorial, prescribed an inhaler with perceived benefit-continued on albuterol metered dose inhaler as directed as needed. Encouraged to follow-up with mechanical unit repairer, Dr. Brown, as recommended for pulmonary hypertension. Anemia 05/03/2020 Assessment & Plan (12/28/2022 9:41 AM CDT): Chronic, controlled at last check, not on multivitamin or iron supplement-will monitor CBC periodically. Assessment & Plan (09/04/2021 10:44 AM REGISTRATION MANAGER): Chronic, stable-encouraged to continue iron supplement daily. Assessment & Plan (07/02/2021 2:34 PM REGISTRATION MANAGER): Chronic, stable-reviewed with patient most recent CBC, ferritin level, folate level, iron level, and total iron binding capacity. Advised to continue ferrous sulfate 325 mg tablet daily, can take the stool softener at night for constipation. Essential hypertension 03/01/2020 Assessment & Plan (04/20/2023 8:52 PM CDT): Chronic, stable, controlled on medication Continue on [...] or more of her medications in time Assessment & Plan (12/28/2022 9:42 AM CDT): Chronic, stable, controlled with medication-continued on metoprolol XL, amlodipine, lisinopril, and hydrochlorothiazide. Encouraged follow-up with mechanical unit repairer as recommended. Assessment & Plan (08/12/2022 8:06 AM REGISTRATION MANAGER): Chronic, stable, controlled with medication-continued on metoprolol XL, amlodipine, lisinopril, and hydrochlorothiazide. Assessment & Plan (01/03/2022 4:42 PM CDT): Chronic, stable, uncontrolled on medication-continued on hydrochlorothiazide, lisinopril, metoprolol, and amlodipine. Encouraged to keep consultation appointment with mechanical unit repairer on 01/16/2022. Assessment & Plan (07/02/2021 2:31 PM REGISTRATION MANAGER): Chronic, stable, controlled on medications-continued on amlodipine, hydrochlorothiazide, lisinopril, and metoprolol. Encouraged to follow-up with mechanical unit repairer, Dr. Brown, as recommended. Pulmonary hypertension 12/12/2019 Assessment & Plan (12/28/2022 9:44 AM CDT): Chronicity and stability unknown-encouraged to follow-up with cardiology and pulmonology as recommended. Assessment & Plan (07/02/2021 2:30 PM REGISTRATION MANAGER): Chronic, stability unknown-encouraged to follow-up with mechanical unit repairer, Dr. Brown, as recommended. Sleep apnea 12/12/2019 Assessment & Plan (12/28/2022 9:43 AM CDT): Chronic, stability unknown-encouraged weight loss. Advised follow-up with sleep medicine as recommended. Assessment & Plan (07/02/2021 2:31 PM REGISTRATION MANAGER): Chronic, stability unknown-encouraged better compliance with CPAP, instructed to use nightly. 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 Assessment & Plan (01/03/2022 4:39 PM CDT): Chronic, stable, now established with a biodiesel operations manager with recent PFT-encouraged to keep recommended follow-up appointment with biodiesel operations manager, Dr. Lyons. Continued on albuterol inhaler as directed as needed. Current Treatment and Therapy Plans No current plan information found. Past Treatment and Therapy Plans No past plan information found. Lifetime Dose Tracking * Chemical Lifetime Dose Automatic Entry Manual Entr y DLP 876 mGycm 876 mGycm 0 mGycm Resolved Problems Problem Noted Date Diagnosed Date Resolved Date Acute non-recurrent maxillary sinusitis 03/11/2022 12/23/2022 Assessment & Plan (03/11/2022 5:33 PM CDT): Take medication as directed. Mucinex or Robitussin (plain without the cough suppressant or decongestant) as directed as needed. Instructed to increase clear liquids, rest, and vitamin C in diet. Advised to sleep with head elevated and use a cool mist vaporizer at bedtime for cough and congestion. Recommended follow-up if symptoms are not improving with treatment, ER for worsening or new symptoms. Dizziness 01/29/2022 12/25/2022 Assessment & Plan (01/29/2022 5:51 PM CDT): Acute, since onset of COVID-19 infection-ordered meclizine as directed as needed for dizziness. Viral URI with cough 01/03/2022 023 Acute bronchitis 09/04/2021 12/23/2022 Assessment & Plan (03/11/2022 5:33 PM CDT): Acute-recommend albuterol inhaler as directed as needed. Mucinex or Robitussin (plain without the cough suppressant or decongestant) as directed as needed. Instructed to increase clear liquids, rest, and vitamin C in diet. Advised to sleep with head elevated and use a cool mist vaporizer at bedtime for cough and congestion. Recommended follow-up if symptoms are not improving with treatment, ER for worsening or new symptoms. Assessment & Plan (09/04/2021 1:29 PM REGISTRATION MANAGER): Acute symptoms suggestive of acute bronchitis-started on azithromycin and prednisone, advised to use albuterol inhaler as directed as needed. Instructed to go to ER difficulty breathing. Patient voiced understanding. Productive cough 09/04/2021 12/23/2022 Assessment & Plan (09/04/2021 1:36 PM REGISTRATION MANAGER): Acute, sputum now white, previously yellow, but still with shortness of breath and chest tightness-started on Z-Rogers as directed as needed and prednisone 20 mg 1 tablet twice daily x5 days. Referred to biodiesel operations manager for further evaluation and management. Advised to go to ER if difficulty breathing or symptoms not relieved with albuterol inhaler. Voiced understanding. Ground glass opacity present on imaging of lung 09/04/2021 12/23/2022 Assessment & Plan (09/04/2021 1:34 PM REGISTRATION MANAGER): New finding on recent chest x-ray dated 09/01/2021, not present on x-ray dated 07/16/2021-started on Z-Rogers as directed as needed and prednisone 20 mg 1 tablet twice daily. Referred to biodiesel operations manager for furtgher evaluation and management of symptoms and abnormal chest x-ray. Suspected COVID-19 virus infection 08/22/2021 12/25/2022 Assessment & Plan (08/22/2021 12:05 PM REGISTRATION MANAGER): Recommended symptomatic treatment with [id number] medications and reminded can use albuterol inhaler (already has) as directed as needed for shortness of breath and chest tightness. She has fulfilled the isolation requirements recommended by the CDC, however advised to continue to isolate until results of PCR testing are known (rapid COVID 19 test negative), and if positive, recommended wearing a mask at a minum through Thursday when around other people. Instructed to go to ER for worsening symptoms, otherwise follow-up with PCP if symptoms are not improving. Visual disturbance 07/02/2021 Assessment & Plan (12/06/2021 5:52 AM CDT): Chronic, stable, previously referred ophthalmology-encouraged to call to schedule an appointment. Assessment & Plan (09/04/2021 1:37 PM REGISTRATION MANAGER): Acute, stable-encouraged patient to schedule an appointment with political science professor referral made at initial/last visit on 07/02/2021. Assessment & Plan (07/02/2021 2:37 PM REGISTRATION MANAGER): Acute, episodic, worsening as evidence by increased frequency-referred to political science professor for further evaluation and management. Pain of right thigh 07/02/2021 12/26/19 Assessment & Plan (09/04/2021 1:35 PM REGISTRATION MANAGER): Chronic, stable, with x-rays ordered at initial/last visit-encouraged to get x- ray of lumbar spine along with x-ray of right hip for persistent right upper anterior thigh pain. Assessment & Plan (07/02/2021 2:39 PM REGISTRATION MANAGER): Chronic, episodic, worsening-ordered x-ray of lumbar spine and right hip. COVID-19 2020 12/23/2022 Assessment & Plan (01/29/2022 2:29 PM CDT): Acute, diagnosed on 01/12/2022, 17 days ago, with waxing and waning symptoms, including dizziness and headache-a prescription for meclizine was sent to her pharmacy to take as directed as needed for dizziness. Advised can take Tylenol as directed as needed for headaches and body aches and plain Robitussin or Mucinex as directed as needed for cough, but to avoid decongestants due to high blood pressure. Recommended clear liquids, rest, and vitamin C in diet and encouraged to sleep with head elevated and use a cool mist vaporizer and Vicks VapoRub at bedtime for cough and congestion. Suggested scheduling an appointment if symptoms don't improve, ER for worsening or new symptoms develop. Provided with a note via [employer] excusing absence from work today. Assessment & Plan (08/03/2020 1:15 PM REGISTRATION MANAGER): Muscle relaxant to help her body to relax. Cyclobenzaprine 10 mg Tylenol for discomfort. Drink fluids. Assessment & Plan (2020 2:51 PM REGISTRATION MANAGER): Instructed to continue with Mucinex DM and OTC cough suppressants. Patient instructed to Self-isolate 10 days from start of symptoms Increase fluid intake Report new or worsening symptoms Warning signs warranting immediate medical care: chest pain, trouble breathing, worsening shortness of breath Acute chest pain 12/12/2019 07/02/2021 Essential hypertension 12/12/201901/05 Dyspnea and respiratory abnormalities 12/23/2022
--- OUTSIDE RECORDS SUMMARY | 2025-02-22 14:58 | XMS_ITS | Encounter Summary ---
Author Organization [facility] Address [address] [place] [address] Phone Care Team Providers Care Elementary Education Teacher Name Role Phone Tamar Guerrero MD Primary Care Provider +- [phone] Tamar Guerrero MD Primary Care Provider + [phone] No, Physician Primary Care Provider Tamar Guerrero MD Primary Care Provider +- [phone] No, Physician Primary Care Provider No, Physician Primary Care Provider Tamar Guerrero MD Primary Care Provider +- [phone] No, Physician Primary Care Provider No, Physician Primary Care Provider Tamar Guerrero MD Primary Care Provider + [phone] No, Physician Primary Care Provider Tamar Guerrero MD Primary Care Provider +- [phone] No, Physician Primary Care Provider Tamar Guerrero MD Primary Care Provider + [phone] No, Physician Primary Care Provider [phone] Tamar Guerrero MD Primary Care Provider + [phone] Tamar Guerrero MD Primary Care Provider [phone] No, Physician Primary Care Provider Tamar Guerrero MD Primary Care Provider [phone] No, Physician Primary Care Provider [phone] Tamar Guerrero MD Primary Care Provider Cheryl Wallace MD Primary Care Provider Jose Henry MD Primary Care Provider Cheryl Wallace MD Primary Care Provider Henry Brown MD Unavailable Rhonda Warren DO Primary Care Provider [phone] Allie Drake Primary Care Provider Ysabel Langston DO Primary Care Provider No, Physician Primary Care Provider Allie Drake Primary Care Provider Sandie Jordan WRIST CLOSER Primary Care Provider Unknown, Notinfile Primary Care Provider Unavail Love Rayo WRIST CLOSER Primary Care Provider [phone] Encounter Details Date Type Department Care Team (Latest Contact Info) Description 10/15/2017 Orders Only [facility] CONVERSION Scanning, Provider Social History Tobacco Use Types Packs/Day Years Used Date Smoking Tobacco: Never Comments Unknown Sex and Gender Information Value Date Recorded Sex Assigned at Not on file Legal Sex Female 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 Gender Identity Female 11/11/2021 6:04 PM CDT Sexual Orientation Not on file documented as of this encounter Plan of Treatment Not on file documented as of this encounter Procedures Procedure Name Priority Date/Time Associated Diagnosis Comments OBSTETRIC/GYNECOLOGY ULTRASONOGRAPHY REPORT 10/19/2017 12:03 PM CDT OBSTETRIC/GYNECOLOGY ULTRASONOGRAPHY REPORT 10/15/2017 1:37 PM CDT documented in this encounter Results * OBSTETRIC/GYNECOLOGY ULTRASONOGRAPHY REPORT (10/19/2017 12:03 PM CDT) Anatomical Region Laterality Modality Ultrasound us Provider Scanning IMG OB US PROCEDURES Final Res ult * OBSTETRIC/GYNECOLOGY ULTRASONOGRAPHY REPORT (10/15/2017 1:37 PM CDT) Anatomical Region Laterality Modality Ultrasound us Provider Scanning IMG OB US PROCEDURES Final Res ult documented in this encounter Visit Diagnoses Not on filedocumented in this encounter Additional Health Concerns Infection Onset Date Last Indicated Resolved Time COVID: Suspected 11/07/2019 11/07/2019 11/12/2019 4:07 PM CDT Respiratory Infection (STEPHIE), contact + droplet Comment:Automatically added due to negative COVID-19 result. 11/12/2019 11/12/2019 11/26/2019 3:0 5 AM CDT COVID: Suspected 12/02/2019 12/02/2019 12/04/2019 3:24 PM CDT Respiratory Infection (STEPHIE), contact + droplet Comment:Automatically added due to negative COVID-19 result. 12/04/2019 12/04/2019 12/18/2019 3:0 5 AM CDT COVID19 07/24/2020 07/24/2020 08/07/2020 3:07 AM SUBCONTRACT ADMINISTRATOR COVID: Recovered Comment:Added based on recent COVID infection. 08/07/2020 08/07/2020 12/05/2020 3:05 AM C DT COVID19 Comment:jul 2020 12/01/2020 01/12/2022 01/22/2022 3:05 AM C DT Exposure, COVID-19 Comment:Added automatically based on COVID19 lab answers indicating exposure risk 09/01/2021 09/01/2021 09/11/2021 3:[address] COVID: Suspected 09/01/2021 09/01/2021 09/11/2021 3:05 AM SUBCONTRACT ADMINISTRATOR COVID: Recovered Comment:Added based on recent COVID infection. 01/22/2022 01/23/2022 05/22/2022 3:05 AM C DT COVID: Suspected 03/12/2022 03/12/2022 03/12/2022 8:39 PM CDT documented as of this encounter Care Teams Elementary Education Teacher Relationship Specialty Start Date End Date Tamar Guerrero MD [address] [place] [address] PCP - General 10/15/17 10/18/17 Tamar Guerrero MD [address] [place] [address] PCP - General 10/19/17 10/20/17 No, Physician PCP - General 10/21/17 10/21/17 Tamar Guerrero MD [address] [address] PCP - General 10/22/17 10/22/17 No, Physician PCP - General 10/23/17 10/25/17 No, Physician PCP - General 10/26/17 10/28/17 Tamar Guerrero MD [address] [address] PCP - General 10/29/17 11/01/17 No, Physician PCP - General 11/02/17 11/05/17 No, Physician PCP - General 11/06/17 11/07/17 Tamar Guerrero MD [address] [place] [address] PCP - General 11/08/17 11/09/17 No, Physician PCP - General 11/10/17 11/10/17 Tamar Guerrero MD [address] [place] [address] PCP - General 11/11/17 11/11/17 No, Physician PCP - General 11/12/17 11/15/17 Tamar Guerrero MD [address] [place] [address] PCP - General 11/16/17 11/17/17 No, Physician PCP - General 11/18/17 12/02/17 Tamar Guerrero MD [address] [place] [address] PCP - General 12/03/17 12/09/17 Tamar Guerrero MD [address] [place] [address] PCP - General 12/10/17 12/10/17 No, Physician PCP - General 12/11/17 12/13/17 Tamar Guerrero MD [address] [place] [address] PCP - General 12/14/17 12/18/17 No, Physician PCP - General 12/19/17 12/20/17 Tamar Guerrero MD [address] [place] [address] PCP - General 12/21/17 10/23/19 Cheryl Wallace MD PCP - General 10/24/19 11/29/19 Jose Henry MD [address] [facility] [address] PCP - General 11/30/19 12/01/19 Cheryl Wallace MD PCP - General 12/02/19 04/28/20 Rhonda Warren DO [address] [place] [address] PCP - General 04/29/20 10/29/20 Allie Drake PA [address] [address] [address] PCP - General Family Medicine 10/30/20 11/11/20 Ysabel Langston DO [address] [place] [address] [address] PCP - General 11/12/20 02/09/21 No, Physician PCP - General 02/10/21 03/25/21 Allie Drake, NICOLE [address] [address] PCP - General Family Medicine 03/26/21 07/01/21 Sandie Jordan, WRIST CLOSER [address] [place] [address] PCP - General Family Practice 07/02/21 07/14/23 Unknown, Notinfile PCP - General 07/17/23 11/24/23 Love Diaz NP [facility] [address] PCP - General Nurse Practitioner 11/25/23 Henry Brown MD [address] [facility] [address] [address] Linen Folder Cardiology 12/07/19 documented as of this encounter
--- OUTSIDE RECORDS SUMMARY | 2025-02-22 14:58 | XMS_ITS | Referral Summary ---
Author Organization [facility] Address [address] [place] [address] Care Team Providers Care Squirrel Man Name Role Phone Henry Brown MD Unavailable [phone] Love Diaz NP Primary Care Provider [phone] Allergies Active Allergy Reactions Criticality Noted Date Comments Grass Pollen Sneezing Low 10/08/2011 Hazelnut Other (See comments) Medium 01/01/2022 Positive on an allergy test Nsaids (Non-Steroidal Anti-Inflammatory Drug) Nausea & Vomiting,Nausea And Vomiting Low 01/21/2012 Pineapple Itching,Swelling Medium 01/01/2022 Fresh pineapple only Pollen Extracts Sneezing Low 10/08/2011 Shellfish Swelling Medium 11/06/2022 Shrimp Itching,Swelling Medium 01/01/2022 Fresh shrimp only Tree Nuts Swelling Medium 11/06/2022 Medications albuterol HFA (PROVENTIL HFA,VENTOLIN HFA,PROAIR HFA) 90 mcg/actuation inhalerIndicatio ns:Hx of wheezing Inhale 2 puffs every 6 (six) hours as needed for wheezing 1 each 2 Active EPINEPHrine 0.3 mg/0.3 mL auto-injection syringeIndicatio ns:Anaphylaxis Inject 0.3 mL (0.3 mg total) into the muscle as instructed as needed for anaphylaxis Call 911 after use. 1 each 3 Active Additional Information Patient not taking.Reported on 04/16/2023 cetirizine (ZyrTEC) 10 mg tabletIndication s:Seasonal allergic rhinitis, unspecified trigger Take 1 tablet (10 mg total) by mouth daily 90 tablet [address] (PROTONIX) 40 mg EC tabletIndication s:Gastroesophage al reflux disease with esophagitis without hemorrhage Take 1 tablet (40 mg total) by mouth daily 90 tablet 1 3 Active hydroCHLOROthiaz timothy (HYDRODIURIL) 12.5 mg tabletIndication s:Essential hypertension TAKE ONE TABLET BY MOUTH ONCE DAILY 30 tablet 5 3 Active metoprolol tartrate (LOPRESSOR) 50 mg immediate release tabletIndication s:Essential hypertension,Hea rt palpitations Take 1 tablet (50 mg total) by mouth 2 (two) times a day 60 tablet 3 Active dexAMETHasone (DECADRON) 1 mg tablet take 1 mg at 11pm and go to the lab the next morning at 8am to have your blood drawn. 1 tablet 4 Active Active Problems Problem Noted Date Diagnosed [...] loss. Assessment & Plan (08/12/2022 8:07 AM EMBEDDED LINUX DEVELOPER): Chronicity and stability unknown-patient has been referred to gynecology due to right ovarian cyst, also being seen by endocrinology for new finding of myelolipoma right adrenal gland, explained both can address concerns regarding unwanted hair growth and possible PCOS. Thrombocytosis 08/12/2022 Assessment & Plan (12/28/2022 9:35 AM CDT): Chronic, stable-encouraged to schedule appointment with sound effects person, previously referred. Assessment & Plan (08/12/2022 8:07 AM EMBEDDED LINUX DEVELOPER): Chronic, worsening-referred to Hematology for further evaluation and management. Female hirsutism 08/07/2022 Assessment & Plan (12/28/2022 9:37 AM CDT): Chronic, stable-advised to follow with archaeology professor and drilling contractor as recommended. Assessment & Plan (08/12/2022 8:05 AM EMBEDDED LINUX DEVELOPER): Chronic, stable-patient has been referred to gynecology due to right ovarian cyst, also being seen by endocrinology for new finding of myelolipoma right adrenal gland, explained both can address concerns regarding unwanted hair growth and possible PCOS. Myelolipoma of right adrenal gland 08/07/2022 Assessment & Plan (12/28/2022 9:36 AM CDT): Chronicity and stability unknown-encouraged follow-up with drilling contractor as recommended. Assessment & Plan (08/12/2022 8:03 AM EMBEDDED LINUX DEVELOPER): Chronicity and stability unknown-reassured patient benign lesion, however referred to drilling contractor for further evaluation and monitoring/management if needed. Seasonal rhinitis 01/03/2022 Assessment & Plan (12/28/2022 9:37 AM CDT): Chronic, stable, controlled with medication-continued on cetirizine. Assessment & Plan (01/03/2022 4:43 PM CDT): Chronic, stable, controlled with as needed medication-refills for cetirizine sent to pharmacy per patient request. Heart palpitations 12/06/2021 Assessment & Plan (12/28/2022 9:38 AM CDT): Chronic, episodic-encouraged to follow-up with barrel drainer as recommended. Assessment & Plan (01/03/2022 4:40 [...] week. Assessment & Plan (08/12/2022 8:04 AM EMBEDDED LINUX DEVELOPER): Chronic, worsening per patient report, not improving with dietary changes, however stable since 06/2022-referred to drilling contractor for further evaluation and management. Assessment & [...] AM CDT): Chronic, episodic-encouraged to follow-up with barrel drainer and quality systems specialist as recommended. Assessment & Plan (09/04/2021 1:30 PM EMBEDDED LINUX DEVELOPER): Acute, intermittent-started on prednisone 20 mg 1 [...] Chronic, controlled-continued on norethindrone. Encouraged follow-up with archaeology professor as recommended. ROSE (generalized anxiety disorder) 07/02/2021 [...] psychologist for counseling, again advised calling insurance [employer] for a list of providers, then calling provider to schedule an appointment. Again, recommended that she consider evaluation by a psychiatrist, instructing to call insurance for list of providers, then call to schedule to an appointment for evaluation. Recommended follow-up in 4 weeks. Assessment & Plan (09/04/2021 1:31 PM EMBEDDED LINUX DEVELOPER): Chronic, stable, uncontrolled, not on medication, referred at last visit to a psychiatrist and psychologist-encouraged to make appointment with psychiatrist and psychologist as previously discussed. Also, previous started on Lexapro which she stopped taking due to suspected side effect of low-grade fever, advised okay to restart Lexapro 10 mg once daily if desired. Assessment & Plan (07/02/2021 2:37 PM EMBEDDED LINUX DEVELOPER): Chronic, stable, uncontrolled, not on medication previously [...] a psychologist for counseling, again advised calling [employer] for a list of providers, then calling provider to schedule an appointment. Again, recommended that she consider evaluation by a psychiatrist, instructing to call insurance for list of providers, then to call to schedule an appointment for evaluation. Recommended follow-up in 4 weeks. Assessment & Plan (09/04/2021 1:31 PM EMBEDDED LINUX DEVELOPER): Chronic, stable, uncontrolled, not on medication, referred at last visit to a psychiatrist and psychologist-encouraged to make appointment with psychiatrist and psychologist as previously discussed. Also, previous started on Lexapro which she stopped taking due to suspected side effect of low-grade fever, advised okay to restart Lexapro 10 mg once daily if desired. Assessment & Plan (07/02/2021 2:37 PM EMBEDDED LINUX DEVELOPER): Chronic, stable, uncontrolled, not on medication previously [...] needed. Assessment & Plan (09/04/2021 1:29 PM EMBEDDED LINUX DEVELOPER): Chronic, currently asymptomatic, with x-rays ordered at initial/last visit- encouraged to get x-ray of lumbar spine along with x-ray of right hip for persistent right upper anterior thigh pain. Assessment & Plan (07/02/2021 2:38 PM EMBEDDED LINUX DEVELOPER): Chronic, episodic, with worsening upper right thigh pain-ordered x-ray of lumbar spine and right hip. Other constipation 07/02/2021 Assessment & Plan (12/28/2022 9:39 AM CDT): Chronic, episodic, not currently on daily medication-encouraged to use MiraLax as directed as needed. Assessment & Plan (07/02/2021 2:39 PM EMBEDDED LINUX DEVELOPER): Chronic, stable, likely related to daily iron supplement-recommended 1-2 Colace HS as needed. Bilateral lower extremity edema 07/02/2021 Assessment & Plan (12/28/2022 9:39 AM CDT): Chronic, stable, controlled with medication-continued on hydrochlorothiazide. Assessment & Plan (07/02/2021 2:40 PM EMBEDDED LINUX DEVELOPER): Chronic, stable, waxes and wanes per patient, on daily diuretic-continued on hydrochlorothiazide and encouraged to keep follow-up appointment with barrel drainer, Dr. Brown. Gastroesophageal reflux dise ase with esophagitis without hemorrhage 08/03/2020 Assessment & Plan (12/28/2022 9:41 AM CDT): Chronic, stable, controlled with medication-continued on sucralfate, pantoprazole, and famotidine. Advised to follow-up with rehabilitation engineer as recommended. Assessment & Plan (09/04/2021 1:33 PM EMBEDDED LINUX DEVELOPER): Chronic, stable, controlled with medication-continued on omeprazole, famotidine, and sucralfate per rehabilitation engineer. Assessment & Plan (07/02/2021 2:35 PM EMBEDDED LINUX DEVELOPER): Chronic, stable, uncontrolled per patient report-continued on omeprazole, sucralfate, famotidine, and Zofran as directed. Encouraged to keep appointment today with rehabilitation engineer to discuss symptoms. Assessment & Plan (08/03/2020 1:14 PM EMBEDDED LINUX DEVELOPER): Continue your pantoprazole BID Pepcid Waldron diet. Shortness of breath 05/03/2020 Assessment & Plan (12/28/2022 9:41 AM CDT): Chronic, stable, likely multifactorial-continued on albuterol as directed as needed. Advised to follow-up with barrel drainer and quality systems specialist as recommended. Encouraged weight loss. Assessment & Plan (01/03/2022 4:39 PM CDT): Chronic, stable, now established with a quality systems specialist with recent PFT-encouraged to keep recommended follow-up appointment with quality systems specialist, Dr. Lyons. Continued on albuterol inhaler as directed as needed. Assessment & Plan (12/06/2021 5:52 AM CDT): Chronic, stable, previously referred to pulmonology-advised to call to schedule an appointment. Assessment & Plan (09/04/2021 1:37 PM EMBEDDED LINUX DEVELOPER): Acute, intermittent-started on prednisone 20 mg 1 tablet twice daily x5 days. Encouraged to use albuterol inhaler as directed as needed for chest tightness, wheezing. and coughing jags. Instructed to go to ER if difficulty breathing or if not getting relief of symptoms with inhaler. Voiced understanding. Assessment & Plan (07/02/2021 2:32 PM EMBEDDED LINUX DEVELOPER): Chronic, episodic, stable, likely multifactorial, prescribed an inhaler with perceived benefit-continued on albuterol metered dose inhaler as directed as needed. Encouraged to follow-up with barrel drainer, Dr. Brown, as recommended for pulmonary hypertension. Anemia 05/03/2020 Assessment & Plan (12/28/2022 9:41 AM CDT): Chronic, controlled at last check, not on multivitamin or iron supplement-will monitor CBC periodically. Assessment & Plan (09/04/2021 10:44 AM EMBEDDED LINUX DEVELOPER): Chronic, stable-encouraged to continue iron supplement daily. Assessment & Plan (07/02/2021 2:34 PM EMBEDDED LINUX DEVELOPER): Chronic, stable-reviewed with patient most recent CBC, [...] amlodipine, lisinopril, and hydrochlorothiazide. Encouraged follow-up with barrel drainer as recommended. Assessment & Plan (08/12/2022 8:06 AM EMBEDDED LINUX DEVELOPER): Chronic, stable, controlled with medication-continued on metoprolol XL, amlodipine, lisinopril, and hydrochlorothiazide. Assessment & Plan (01/03/2022 4:42 PM CDT): Chronic, stable, uncontrolled on medication-continued on hydrochlorothiazide, lisinopril, metoprolol, and amlodipine. Encouraged to keep consultation appointment with barrel drainer on 01/16/2022. Assessment & Plan (07/02/2021 2:31 PM EMBEDDED LINUX DEVELOPER): Chronic, stable, controlled on medications-continued on amlodipine, hydrochlorothiazide, lisinopril, and metoprolol. Encouraged to follow-up with barrel drainer, Dr. Brown, as recommended. Pulmonary hypertension 12/12/2019 Assessment & Plan (12/28/2022 9:44 AM CDT): Chronicity and stability unknown-encouraged to follow-up with cardiology and pulmonology as recommended. Assessment & Plan (07/02/2021 2:30 PM EMBEDDED LINUX DEVELOPER): Chronic, stability unknown-encouraged to follow-up with barrel drainer, Dr. Brown, as recommended. Sleep apnea 12/12/2019 Assessment & Plan (12/28/2022 9:43 AM CDT): Chronic, stability unknown-encouraged weight loss. Advised follow-up with sleep medicine as recommended. Assessment & Plan (07/02/2021 2:31 PM EMBEDDED LINUX DEVELOPER): Chronic, stability unknown-encouraged better compliance with CPAP, instructed to use nightly. 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 Assessment & Plan (01/03/2022 4:39 PM CDT): Chronic, stable, now established with a quality systems specialist with recent PFT-encouraged to keep recommended follow-up appointment with quality systems specialist, Dr. Lyons. Continued on albuterol inhaler as directed as needed. Resolved Problems Problem Noted Date Diagnosed Date [...] symptoms. Assessment & Plan (09/04/2021 1:29 PM EMBEDDED LINUX DEVELOPER): Acute symptoms suggestive of acute bronchitis-started on azithromycin and prednisone, advised to use albuterol inhaler as directed as needed. Instructed to go to ER difficulty breathing. Patient voiced understanding. Productive cough 09/04/2021 12/23/2022 Assessment & Plan (09/04/2021 1:36 PM EMBEDDED LINUX DEVELOPER): Acute, sputum now white, previously yellow, but still with shortness of breath and chest tightness-started on Z-Rogers as directed as needed and prednisone 20 mg 1 tablet twice daily x5 days. Referred to quality systems specialist for further evaluation and management. Advised to go to ER if difficulty breathing or symptoms not relieved with albuterol inhaler. Voiced understanding. Ground glass opacity present on imaging of lung 09/04/2021 12/23/2022 Assessment & Plan (09/04/2021 1:34 PM EMBEDDED LINUX DEVELOPER): New finding on recent chest x-ray dated 09/01/2021, not present on x-ray dated 07/16/2021-started on Z-Rogers as directed as needed and prednisone 20 mg 1 tablet twice daily. Referred to quality systems specialist for furtgher evaluation and management of symptoms and abnormal chest x-ray. Suspected COVID-19 virus infection 08/22/2021 12/25/2022 Assessment & Plan (08/22/2021 12:05 PM EMBEDDED LINUX DEVELOPER): Recommended symptomatic treatment with [id number] medications and reminded can use albuterol inhaler [...] symptoms are not improving. Visual disturbance 07/02/2021 3 Assessment & Plan (12/06/2021 5:52 AM CDT): Chronic, stable, previously referred ophthalmology-encouraged to call to schedule an appointment. Assessment & Plan (09/04/2021 1:37 PM EMBEDDED LINUX DEVELOPER): Acute, stable-encouraged patient to schedule an appointment with sand mill operator referral made at initial/last visit on 07/02/2021. Assessment & Plan (07/02/2021 2:37 PM EMBEDDED LINUX DEVELOPER): Acute, episodic, worsening as evidence by increased frequency-referred to sand mill operator for further evaluation and management. Pain of right thigh 07/02/2021 12/26/19 23 Assessment & Plan (09/04/2021 1:35 PM EMBEDDED LINUX DEVELOPER): Chronic, stable, with x-rays ordered at initial/last visit-encouraged to get x- ray of lumbar spine along with x-ray of right hip for persistent right upper anterior thigh pain. Assessment & Plan (07/02/2021 2:39 PM EMBEDDED LINUX DEVELOPER): Chronic, episodic, worsening-ordered x-ray of lumbar spine [...] symptoms develop. Provided with a note via [employer] excusing absence from work today. Assessment & Plan (08/03/2020 1:15 PM EMBEDDED LINUX DEVELOPER): Muscle relaxant to help her body to relax. Cyclobenzaprine 10 mg Tylenol for discomfort. Drink fluids. Assessment & Plan (2020 2:51 PM EMBEDDED LINUX DEVELOPER): Instructed to continue with Mucinex DM and OTC cough suppressants. Patient instructed to Self-isolate 10 days from start of symptoms Increase fluid intake Report new or worsening symptoms Warning signs warranting immediate medical care: chest pain, trouble breathing, worsening shortness of breath Acute chest pain 12/12/2019 07/02/2021 Essential hypertension 12/12/201901/05 Dyspnea and respiratory abnormalities 12/23/2022 Immunizations Immunization Administration Dates Next Due DTP 03/27/1995,04/18/1994,1989 HiB 04/18/1994 Influenza, Quadrivalent, Spl it, Preservative Free, Intramuscular 07/07/2023 Influenza, Trivalent, Cell Culture-based MDCK, Preservative Free, Antibiotic Free, Intramuscular 06/18/2022 Influenza, Trivalent, Preser vative Free, Intramuscular 09/08/2017 Influenza, Unspecified 04/16/2023(Deferred: Gill ent Refused) MMR 03/27/1995,04/18/1994 OPV 03/27/1995,04/18/1994,1989 Pfizer SARS-CoV-2 Monovalent Vaccination (12+ Yrs) PURPLE 02/20/2021,12/10/2020 Tdap 09/08/2017 Social History Tobacco Use Types Packs/Day Years Used Date Smoking Tobacco: Never Smokeless Tobacco: Never Tobacco Cessation:Counseling Given: Not Answered Alcohol Use Standard Drinks/Week Comments Not Currently 0 (1 standard drink = 0.6 oz pur e alcohol) AUDIT-C Answer Date Recorded Q1: How often do you have a drink containing alc ohol? Monthly or less 11/25/2023 Q2: How many drinks containi ng alcohol do you have on a typical day when you are drinking? 1 or 2 11/25/2023 Q3: How often do you have si x or more drinks on one occasion? Never 11/25/2023 PHQ-2 Answer Date Recorded PHQ-2 Total Score (If total score is 3 or more points, staff should administer the PHQ-9) 1 12/23/2022 Personal Safety Answer Date Recorded Have you ever been in or are you currently in a harmful physical or emotional relationship or is someone making you feel afraid or unsafe? Denies 07/17/2023 Comments No Sex and Gender Information Value Date Recorded Sex Assigned at Not on file Legal Sex Female 8:01 AM EMBEDDED LINUX DEVELOPER Gender Identity Female 11/11/2021 6:04 PM CDT Sexual Orientation Not on file Last Filed Vital Signs Vital Sign Reading Time Taken Comments Blood Pressure 139/87 11/25/2023 3:54 PM CDT Pulse 76 11/25/2023 3:54 PM CDT Temperature 36.8 C (98.3 F) 07/17/2023 1:49 PM EMBEDDED LINUX DEVELOPER Respiratory Rate 18 07/17/2023 11:4 6 PM EMBEDDED LINUX DEVELOPER Oxygen Saturation 100% 07/17/2023 11: 46 PM EMBEDDED LINUX DEVELOPER Inhaled Oxygen Concentration - - Weight 128.2 kg (282 lb 9.6 oz) 11/25/2023 3:54 PM CDT Height 167.6 cm (5' 6) 11/25/2023 3:54 PM CDT Body Mass Index 45.61 11/25/2023 3:54 PM CDT Plan of Treatment Not on file Procedures Procedure Name Priority Date/Time Associated Diagnosis Comments HEPATITIS PANEL, ACUTE Routine 11/12/2020 12:28 PM CDT Screening for STD (sexually transmitted disease) THINPREP PAP WITH HPV Routine 11/12/2020 12:01 AM CDT Well woman exam with routine gynecological exam from Last 3 Months or Most Recently Relevant to Health Maintenance Results * Hepatitis panel, acute (11/12/2020 12:28 PM CDT) HepBsAg NONREACT NONREACTIVE [facility] Comment: Siemens CentaurXP using SANDY (chemiluminescent immunoassay) technology. NONREACTIVE: IgM antibodies to Hepatitis B Surface antigen not detected. REACTIVE: IgM antibodies to Hepatitis B Surface antigen detected. Reactive results will be confirmed by neutralization testing. HBsAb qn <3.10 mIU/mL [facility] Comment: Siemens CentaurXP using SANDY (chemiluminescent immunoassay) technology. 9.99 IU/L or less.....NONREACTIVE: IgM antibodies to Hepatitis B Surface antibody are not detected. 10.00 IU/L or greater..REACTIVE: IgM antibodies to Hepatitis B Surface antibody are detected. Hep B core IgM NONREACT NONREACTIVE [facility] Comment: Siemens CentaurXP using SANDY (chemiluminescent immunoassay) technology. NONREACTIVE: IgM antibodies to Hepatitis B Core antigen not detected. EQUIVOCAL: IgM antibodies to Hepatitis B Core antigen may or may not be present. Obtain a new specimen and retest. REACTIVE: IgM antibodies to Hepatitis B Core antigen detected. Hep A IgM NONREACT NONREACTIVE [facility] Comment: Siemens CentaurXP using SANDY (chemiluminescent immunoassay) technology. NONREACTIVE: IgM antibodies to Hepatitis A not detected. This does not exclude possibility of exposure to Hepatitis A or early acute infection. EQUIVOCAL:IgM antibodies to Hepatitis A may or may not be present. Suggest recollection and retest. REACTIVE: Antibodies to Hepatitis A detected. Hep C Ab NONREACT NONREACTIVE [facility] Comment: Siemens CentaurXP using SANDY (chemiluminescent immunoassay) technology. NONREACTIVE: Antibodies to Hepatitis C not detected. This does not exclude early acute Hepatitis C infection, possibility of exposure to Hepatitis C, antibodies below detection limit, or to lack of antibody reactivity to the antigen used in this assay. EQUIVOCAL: Antibodies to Hepatitis C may or may not be present. Sample to be confirmed by real-time PCR method. REACTIVE: Antibodies to Hepatitis C detected.Sample to be confirmed by real-time PCR method. Blood specimen (specimen) 11/12/2020 12:28 PM CDT 11/12/2020 1:04 PM CDT Narrative Resulting Agency Comment CLI Ysabel Langston DO LAB MICROBIOLOGY - GEN ERAL [place] [address], [facility] [phone] * ThinPrep Pap with HPV (11/12/2020 12:01 AM CDT) Pap test 11/12/2020 12:0 1 AM CDT 11/14/2020 9:57 AM CDT Narrative 11/19/2020 11:26 AM CDT [facility] Department of Pathology [address] [place] [address] Final Report with Addendum Patient Name: ETHEL JHA Address: [address] [place] [address] Gender: F : 1990 (Age: 30) Service: Laboratory Location: Lab [facility] #: [id number] Patient Type: Ref Lab Taken: 11/12/2020 Received: 11/14/2020 Accessioned:: 11/15/2020 Reported: 11/19/2020 Physician(s): Dr. Ysabel Langston D[facility] Diagnosis: Source of Specimen: Screening ThinPrep Imaged Pap w/HPV Specimen Adequacy: - Satisfactory for evaluation; endocervical/transformation zone component present General Category: - Negative for intraepithelial lesion or malignancy CAROLYN Guzman(ASCP) Report Electronically Reviewed and Signed Out By CAROLYN Guzman(ASCP) 11/19/2020 11:26:47 Addenda: HPV Test Interpretation NEGATIVE for types 16, 18, 31, 33, 35, 39, 45, 51, 52, 56, 58, 59, 66 and 68. Test performed utilizing Gen-Probe Aptima assay. CAROLYN Ken(ASCP) Report Electronically Reviewed and Signed Out By CAROLYN Ken(ASCP) 11/15/2020 13:02:45 Specimen(s) Received: A: Screening ThinPrep Imaged Pap w/HPV Clinical History: Last Menstrual Period: 10/31/2020 The Pap test is a screening test used to aid in the detection of cervical cancer and its precursors. It should not be the sole means by which malignant and premalignant lesions are diagnosed. Both false negative and false positive results may occur. It also has poor sensitivity for the detection of endometrial lesions and should not be used to evaluate suspected endometrial abnormalities. For these reasons it is most important to obtain Pap tests at regular intervals. The performance characteristics of some immunohistochemical stains, fluorescence in-situ hybridization tests and immunophenotyping by flow cytometry cited in this report (if any) were determined by the Surgical Pathology Department at [facility] as part of an ongoing quality assurance lab technician program and in compliance with federally mandated regulations drawn from the Clinical Laboratory Improvement Act of 1988 (CLIA '88). Some of these tests rely on the use of analyte specific reagents and are subject to specific labeling requirements by the US Food and Drug Administration. Such diagnostic tests may only be performed in a facility that is certified by the Department of Health and Human Services as a high complexity laboratory under CLIA '88. The FDA has determined that such clearance or approval is not necessary. This test is used for clinical purposes. It should not be regarded as investigational or for research. Nevertheless, federal rules concerning the medical use of analyte specific reagents require that the following disclaimer be attached to the report: This test was developed and its performance characteristics determined by the Surgical Pathology Department [facility]. It has not been cleared or approved by the U. S. Food and Drug Administration. Ysabel Langston DO LAB CYTOLOGY ORDERABLE S Final Result from Last 3 Months or Most Recently Relevant to Health Maintenance Insurance [facility] Care Teams Squirrel Man Relationship Specialty Start Date End Date Love Diaz NP [address] [address] PCP - General Nurse Practitioner 11/25/23 Henry Brown MD [address] [place] [address] [facility] 12/07/19
--- OUTSIDE RECORDS SUMMARY | 2025-02-22 14:58 | XMS_ITS | Encounter Summary ---
Author Organization [facility] Address [address] [place] [address] Care Team Providers Care Entry Rep Name Role Phone Henry Suarez MD Unavailable [phone] Love Diaz PROCUREMENT TECHNICIAN-FAN BALANCER Primary Care Provider + Love Diaz PROCUREMENT TECHNICIAN-FAN BALANCER Unavailable [phone] Deyanira De La Fuente RN Unavailable [phone] Anabell Thompson MD Primary Care Provider Love Diaz PROCUREMENT TECHNICIAN-FAN BALANCER Primary Care Provider + Aiyana Esposito Unavailable [phone] Reason for Visit * Reason Onset Date Comments Surgery Scheduling 11/13/2023 Pt has Flu, w ould like a Nurse call to discuss upcoming Surgery on Thursday11.16.23, Pls call to determine if shd still come in, thank you. Encounter Details Date Type Department Care Team (Late st Contact Info) Description 11/13/2023 Telephone [facility] - Centralized Scheduling [address] [place] [address] Izabella Inman MD [address] [address] Surgery Scheduling (Pt has Flu, would like a Nurse call to discuss upcoming Surgery on Thursday11.16.23, Pls call to determine if shd still come in, thank you.) Social History Tobacco Use Types Packs/Day Years [...] Recorded Patient Health Questionnaire-2 Score 0 11/10/2023 [facility] - Occupational Stress [...] place to sleep or slept in a senior care (including now)? No 04/13/2023 Comments No Sex and Gender Information Value Date Recorded Sex Assigned at Not on file Legal Sex Female 5:36 AM DEAF INTERPRETER Gender Identity Not on file Sexual Orientation Not on file documented as of this encounter Functional Status * Is person deaf or have serious hearing difficulty? Answer Date of Assessment Author No 04/13/2023 2:30 PM CDT Doug Bell RN * Is person blind or have [...] * Telephone Encounter - Ochoa Polk - 12/16/2023 1:46 PM CDT Spoke with patient through [employer] and she has been scheduled for January 24 at 9am, with an 7am arrival. Procedure instructions sent to patient via [employer]. * Telephone Encounter - Ochoa Polk - 12/08/2023 1:46 PM CDT 2nd attempt-[employer] message sent to patient about rescheduling surgery. * Telephone Encounter - Ochoa Polk - 11/24/2023 2:39 PM CDT I sent patient a [employer] message to see if she wanted to reschedule. * Telephone Encounter - Ochoa Polk - 11/17/2023 4:25 PM CDT I called and left patient a message on Thursday that she should not have procedure. I will reach out to patient at a later date and reschedule her. * Telephone Encounter - Isreal Last - 11/13/2023 3:52 PM CDT Pt has Flu, would like a Nurse call to discuss upcoming Surgery on 11.15.24, Pls call to determine if shd still come in, thank you. * Telephone Encounter - Elizabeth Burrows - 11/13/2023 3:36 PM CDT Pt returning call to speak about surgery and she is not feeling well documented in this encounter Plan of Treatment Upcoming Encounters Date Type Department Care Team (Late st Contact Info) Description 04/19/2025 8:00 AM CDT Office Visit [facility] - Pulmonology [address] [place] [id number] Mario Decker MD [address] [place] [id number] 05/16/2025 8:20 AM CDT Office Visit [facility] - Family Medicine [address] [place] [address] Love Diaz, PROCUREMENT TECHNICIAN-FAN BALANCER [address] [place] [address] documented as of this encounter Visit Diagnoses Not on filedocumented in this encounter Additional Health Concerns Infection Onset Date Last Indicated Resolved Time Influenza A or B 11/10/2023 11/10/2023 11/17/2023 4:33 AM CDT COVID-19 Under Investigation 09/06/2024 09/06/2024 09/06/2024 4:15 PM DEAF INTERPRETER documented as of this encounter Care Teams Entry Rep Relationship Specialty Start Date End Date Love Diaz APRN-FAN BALANCER [address] [place] [address] PCP - General Nurse Practitioner 09/15/23 02/15/24 Love Diaz APRN-FAN BALANCER [address] [place] [address] PCP - Attributed-[employer] [facility] 08/03/23 Anabell Thompson MD [address] [place] [address] PCP - General Internal Medicine 02/16/24 02/16/24 Love Diaz APRN-FAN BALANCER [address] [place] [address] PCP - General Nurse Practitioner 02/17/24 [place] [address] [facility] [address] [place] [phone] [employer] Restorer Cardiovascular Disease 12/01/22 Deyanira De La Fuente, RN Brake Lining CurerLooper Operator 01/05/24 02/08/24 Aiyana Esposito Care Coordination Specialist Care Management 11/15/24 12/30/24 documented as of this encounter
--- OUTSIDE RECORDS SUMMARY | 2025-02-22 14:58 | XMS_ITS | Clinical Summary ---
Author Organization [facility] Address [address] [place] [place] [address] Care Team Providers Care Training Specialist Name Role Phone Henry Suarez MD Unavailable [phone] Love Diaz CONTINUOUS CONVEYOR SCREEN DRIER-ACID MAKER Unavailable [phone] Love Diaz CONTINUOUS CONVEYOR SCREEN DRIER-ACID MAKER Primary Care Provider + Source Comments [facility],non-owned Affiliates and Associated Physician Practices is amultiple site organization consisting of ambulatory clinics and hospital sitesin [place], [place], [place] and [place]. This disclosure is being madepursuant to the Care Everywhere program and may not contain all information available regarding this patient. Last updated 18.[facility] Allergies Active Allergy Reactions Criticality Noted Date Comments Grass Pollen(K-O-R-T-Swt Noel) Rhinitis Low 10/08/2011 Other reaction(s): Sneezing Pineapple Itching,Swelling Medium 01/01/2022 Fresh pineapple only Fresh pineapple only Pollen Extract Rhinitis Low 10/08/2011 Other reaction(s): Sneezing Shellfish Itching,Swelling Medium 01/01/2022 Fresh shrimp only Shellfish Allergy Swelling 11/06/2022 Tree Nuts Swelling Medium 01/01/2022 Other reaction(s): Other (See Comments) Positive on an allergy test Medications * Be aware that medications may not be up to date on this document. Alwaysverify current medications with the patient. EPINEPHrine (Epipen) 0.3 MG/0.3ML auto-injector pen Inject 0.3 mL into muscle once as needed for Anaphylaxis 3 Active albuterol HFA (Proventil; Ventolin; Proair) 108 (90 Base) MCG/ACT inhaler Inhale 2 (two) puffs by mouth every 6 hours as needed Inhale 2 (two) puffs by mouth - Inhalation 18 g 1 4 Active losartan (Cozaar) 25 MG tablet Take 1 (one) tablet by mouth once daily 100 tablet 4 4 Active metoprolol tartrate IR (Lopressor) 50 MG tablet Take 1 (one) tablet by mouth 2 times daily 180 tablet 3 4 Active pantoprazole EC (Protonix) 40 MG tablet TAKE 1 TABLET BY MOUTH TWICE DAILY 180 tablet 3 4 Active Biotin 54273 MCG Take 1 (one) tablet by mouth once daily Active FLUoxetine (PROzac) 20 MG capsuleIndicat ions:ROSE (generalized anxiety disorder),Mode rate episode of recurrent major depressive disorder (HCC) TAKE 1 CAPSULE BY MOUTH EVERY MORNING 100 capsule 1 5 Active hydroCHLOROthi azide (Hydrodiuril) 25 MG tablet TAKE 1 TABLET BY MOUTH EVERY DAY 90 tablet 5 Active Additional Information Patient taking differently: No details specified, Reason: Patient adjusted (Takes HALF; 12.5 mg total daily), Reported on 02/09/2025 hydroCHLOROthi azide 12.5 MG Take 1 (one) tablet by mouth once daily 4 02/10/20 25 Discontin ued(List Clean-Up) lactobacillus extra strength (Florajen) capsule Take 1 (one) capsule by mouth once daily 02/10/20 25 Discontin ued(List Clean-Up) lactobacillus extra strength (Florajen) capsule Take 1 (one) capsule by mouth 3 times daily 02/10/20 25 Discontin ued(List Clean-Up) Active Problems Problem Noted Date Diagnosed Date Abnormal resting electrocardiogram findings 11/02 Congenital umbilical hernia 11/25/2023 Sinus tachycardia 11/25/2023 Mild intermittent asthma without complication 07/07/2023 Overview (07/29/2023): Last Assessment & Plan: Chronic, stable, controlled with PRN inhaler-continued on albuterol as directed as needed. Last Assessment & Plan: Chronic, stable, controlled with PRN inhaler-continued on albuterol as directed as needed. Last Assessment & Plan: Chronic, stable, controlled with PRN inhaler-continued on albuterol as directed as needed. S/P gastric bypass 04/13/2023 Prediabetes 09/09/2022 07/07/2023 Overview (07/29/2023): Last Assessment & Plan: Chronicity and stability [...] 150 minutes of exercise/week. Acanthosis nigricans 08/12/2022 07/07/2023 Overview (07/07/2023): Last Assessment & Plan: Chronic, stable-will continue to monitor for diabetes. Encouraged weight loss. Thrombocythemia 08/12/2022 07/07/2023 Overview (07/29/2023): Last Assessment & Plan: Chronic, stable-encouraged to schedule appointment with canvas marker, previously referred. Last Assessment & Plan: Chronic, stable-encouraged to schedule appointment with canvas marker, previously referred. Last Assessment & Plan: Chronic, stable-encouraged to schedule appointment with canvas marker, previously referred. Female hirsutism 08/07/2022 07/07/2023 Overview (07/29/2023): Last Assessment & Plan: Chronic, stable-advised to follow with traditional chinese herbalist and job printer apprentice as recommended. Last Assessment & Plan: Chronic, stable-advised to follow with traditional chinese herbalist and job printer apprentice as recommended. Last Assessment & Plan: Chronic, stable-advised to follow with traditional chinese herbalist and job printer apprentice as recommended. Myelolipoma of right adrenal gland 08/07/2022 07/07/2023 Overview (07/29/2023): Last Assessment & Plan: Chronicity and stability unknown-encouraged follow-up with job printer apprentice as recommended. Last Assessment & Plan: Chronicity and stability unknown-encouraged follow-up with job printer apprentice as recommended. Last Assessment & Plan: Chronicity and stability unknown-encouraged follow-up with job printer apprentice as recommended. Seasonal rhinitis 01/03/2022 07/07/2023 Overview (07/29/2023): Last Assessment & Plan: Chronic, stable, controlled with medication-continued on cetirizine. Last Assessment & Plan: Chronic, stable, controlled with medication-continued on cetirizine. Last Assessment & Plan: Chronic, stable, controlled with medication-continued on cetirizine. Class 3 severe obesity due t o excess calories with serious comorbidity and body mass index (BMI) of 45.0 to 49.9 in adult 12/06/2021 07/07/2023 Overview (02/16/2024): Last Assessment & Plan: Chronic, with recent [...] in time Last Assessment & Plan: Chronic, with recent [...] in time Last Assessment & Plan: Chronic, with recent [...] or more of her medications in time Morbid obesity with BMI of 50.0-59.9, adult 01/202207/29/2023 Overview (07/29/2023): Last Assessment & Plan: Chronic, with recent [...] or more of her medications in time Menses, irregular 08/09/2021 07/07/2023 Overview (07/29/2023): Last Assessment & Plan: Chronic, controlled-continued on norethindrone. Encouraged follow-up with traditional chinese herbalist as recommended. Last Assessment & Plan: Chronic, controlled-continued on norethindrone. Encouraged follow-up with traditional chinese herbalist as recommended. Last Assessment & Plan: Chronic, controlled-continued on norethindrone. Encouraged follow-up with traditional chinese herbalist as recommended. Bilateral low back pain with right-sided sciatic a 07/02/2021 07/07/2023 Overview (07/29/2023): Last Assessment & Plan: Chronic, episodic, with [...] as needed. Bilateral lower extremity edema 07/02/2021 07/07/2023 Overview (07/29/2023): Last Assessment & Plan: Chronic, stable, controlled with medication-continued on hydrochlorothiazide. Last Assessment & Plan: Chronic, stable, controlled with medication-continued on hydrochlorothiazide. Last Assessment & Plan: Chronic, stable, controlled with medication-continued on hydrochlorothiazide. Other constipation 07/02/2021 07/07/2023 Overview (07/29/2023): Last Assessment & Plan: Chronic, stable, likely [...] directed as needed. ROSE (generalized anxiety disorder) 12/28/2020 07/07/2023 Overview (07/29/2023): Last Assessment & Plan: Chronic, stable, controlled with medication-continued on Lexapro. Encouraged follow-up with Psychiatry as recommended. Last Assessment & Plan: Chronic, stable, controlled with medication-continued on Lexapro. Encouraged follow-up with Psychiatry as recommended. Last Assessment & Plan: Chronic, stable, controlled with medication-continued on Lexapro. Encouraged follow-up with Psychiatry as recommended. Moderate recurrent major depression 12/28/2020 07/07/2023 Overview (07/29/2023): Last Assessment & Plan: Chronic, stable, controlled with medication-continued on Lexapro. Encouraged follow-up with Psychiatry as recommended. Last Assessment & Plan: Chronic, stable, controlled with medication-continued on Lexapro. Encouraged follow-up with Psychiatry as recommended. Last Assessment & Plan: Chronic, stable, controlled with medication-continued on Lexapro. Encouraged follow-up with Psychiatry as recommended. Gastroesophageal reflux dise ase with esophagitis without hemorrhage 08/03/2020 07/07/2023 Overview (07/29/2023): Last Assessment & Plan: Continue your pantoprazole BID Pepcid Asotin diet. Last Assessment & Plan: Chronic, stable, controlled with medication-continued on sucralfate, pantoprazole, and famotidine. Advised to follow-up with predatory animal exterminator as recommended. Last Assessment & Plan: Continue your pantoprazole BID Pepcid Asotin diet. Last Assessment & Plan: Chronic, stable, controlled with medication-continued on sucralfate, pantoprazole, and famotidine. Advised to follow-up with predatory animal exterminator as recommended. Last Assessment & Plan: Continue your pantoprazole BID Pepcid Asotin diet. Last Assessment & Plan: Chronic, stable, controlled with medication-continued on sucralfate, pantoprazole, and famotidine. Advised to follow-up with predatory animal exterminator as recommended. Anemia 05/03/2020 07/07/2023 Overview (07/29/2023): Last Assessment & Plan: Chronic, controlled at last check, not on multivitamin or iron supplement-will monitor CBC periodically. Last Assessment & Plan: Chronic, controlled at last check, not on multivitamin or iron supplement-will monitor CBC periodically. Last Assessment & Plan: Chronic, controlled at last check, not on multivitamin or iron supplement-will monitor CBC periodically. Shortness of breath 05/03/2020 07/07/2023 Overview (07/29/2023): Last Assessment & Plan: Chronic, stable, likely multifactorial-continued on albuterol as directed as needed. Advised to follow-up with residential program worker and marketing business analyst as recommended. Encouraged weight loss. Last Assessment & Plan: Chronic, stable, likely multifactorial-continued on albuterol as directed as needed. Advised to follow-up with residential program worker and marketing business analyst as recommended. Encouraged weight loss. Essential hypertension 03/01/2020 3 Overview (07/29/2023): Last Assessment & Plan: Chronic, stable, controlled [...] or more of her medications in time Obstructive sleep apnea 12/12/2019 07/07/20 Overview (07/29/2023): Last Assessment & Plan: Chronic, stability unknown-encouraged weight loss. Advised follow-up with sleep medicine as recommended. Last Assessment & Plan: Chronic, stability unknown-encouraged weight loss. Advised follow-up with sleep medicine as recommended. Last Assessment & Plan: Chronic, stability unknown-encouraged weight loss. Advised follow-up with sleep medicine as recommended. Palpitations 12/12/2019 07/07/2023 Overview (07/29/2023): Last Assessment & Plan: Chronic, episodic-encouraged to follow-up with residential program worker as recommended. Last Assessment & Plan: Chronic, episodic-encouraged to follow-up with residential program worker as recommended. Last Assessment & Plan: Chronic, episodic-encouraged to follow-up with residential program worker as recommended. Pulmonary hypertension 12/12/2019 Overview (07/29/2023): Last Assessment & Plan: Chronicity and stability unknown-encouraged to follow-up with cardiology and pulmonology as recommended. Last Assessment & Plan: Chronicity and stability unknown-encouraged to follow-up with cardiology and pulmonology as recommended. Last Assessment & Plan: Chronicity and stability unknown-encouraged to follow-up with cardiology and pulmonology as recommended. 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 A ROS and PE were performed. Medications were refilled. Discussed well woman exam/cervical cancer screening, monthly breast self-exams, and recommended immunizations. Patient will follow-up in 6 months for further evaluation and management or sooner if needed. Last Assessment & Plan: Reviewed past and current medical history, surgical history, social history, family history, current medications, and allergies. A ROS and PE were performed. Medications were refilled. Discussed well woman exam/cervical cancer screening, monthly breast self-exams, and recommended immunizations. Patient will follow-up in 6 months for further evaluation and management or sooner if needed. Chest tightness 09/04/2021 07/07/2023 12/25/2023 Overview (07/29/2023): Last Assessment & Plan: Chronic, episodic-encouraged to follow-up with residential program worker and marketing business analyst as recommended. Last Assessment & Plan: Chronic, episodic-encouraged to follow-up with residential program worker and marketing business analyst as recommended. Last Assessment & Plan: Chronic, episodic-encouraged to follow-up with residential program worker and marketing business analyst as recommended. Suspected COVID-19 virus infection 08/22/2021202212/25/2023 Overview (07/29/2023): Last Assessment & Plan: Recommended symptomatic treatment with [id number] medications and reminded can use albuterol inhaler [...] with PCP if symptoms are not improving. Last Assessment & Plan: Recommended symptomatic treatment with [id number] medications and reminded can use albuterol inhaler [...] with PCP if symptoms are not improving. Morbid obesity 10/19/2020 07/07/2023 07/07/2023 depression 12/10/20172024 06/16/2017 02/09/2025 Encounters Date Type Department Care Team Description 02/15/[address] [facility] Breast [facility] [place] [address] [id number] Tiera Rangel, wool sorter 02/09/2025 9:00 AM CDT Office Visit [facility] [address] [place] [phone] Love Diaz, CONTINUOUS CONVEYOR SCREEN DRIER-ACID MAKER Routine general medical examination at a health care facility (Primary Dx); Moderate episode of recurrent major depressive disorder (HCC); ROSE (generalized anxiety disorder); Essential hypertension; Prediabetes; Class 3 severe obesity due to excess calories with serious comorbidity and body mass index (BMI) of 45.0 to 49.9 in adult (HCC); Palpitations; Insomnia, unspecified type; Family history of breast cancer 02/09/2025 Travel 01/02/2025 Telephone [facility] Medicine [address] [place] [phone] Love Diaz APRN-ACID MAKER Late Cancel 01/01/2025 Refill [facility] [address] [place] [phone] Anabell Thompson MD Refill Request 12/01/2024 Telephone [facility] [address] [place] [address] Love Diaz APRN-ACID MAKER Appointment 11/29/2024 Telephone [facility] [address] [place] [phone] Love Diaz CONTINUOUS CONVEYOR SCREEN DRIER-ACID MAKER Late Cancel from Last 3 Months Immunizations Immunization Administration Dates Next Due DTP, HISTORIC VACCINE 03/27/1995,04/18/1994,01/1990 HIB VACCINE 04/18/1994 INFLUENZA VACCINE, CELL CULT URE, QUADR. (FLUCELVAX QUADRIVALENT; 6MO+) (CCIIV4) 06/18/2022 INFLUENZA VACCINE, QUADR. (F LUZONE; FLULAVAL; FLUARIX; AFLURIA QUADRIVALENT; 6MO+), 0.5 ML (IIV4) 07/07/2023 INFLUENZA VACCINE, TRIV. (FL UZONE; FLULAVAL; FLUARIX; AFLURIA TRIVALENT; 6MO+), 0.5 ML (IIV3) 06/21/2024,09/08/2017 MMR VACCINE 03/27/1995,04/18/1994 POLIO OPV 03/27/1995,04/18/1994,1989 TDAP, HISTORIC VACCINE 09/08/2017 Family History Medical History Relation Name Comments None Known Brother Cancer - Lung Father Cancer - Breast Maternal Aunt Cancer - Pancreatic Maternal Aunt Cancer - Stomach Maternal Aunt None Known Maternal Grandfather Cancer - Breast Maternal Grandmother Cancer - Pancreatic Maternal Grandmother Cancer - Stomach Maternal Uncle Cancer - Pancreatic Mother None Known Paternal Aunt None Known Paternal Grandfather None Known Paternal Grandmother None Known Paternal Uncle None Known Sister Relation Name Status Comments Brother Father Maternal Aunt Maternal Grandfather Maternal Grandmother Maternal Uncle Alive Mother Paternal Aunt Paternal Grandfather Paternal Grandmother Paternal Uncle Sister Social History Tobacco Use Types Packs/Day Years Used Date Smoking Tobacco: Never Smokeless Tobacco: Never Tobacco Cessation:Counseling Given: No Alcohol Use Standard Drinks/Week Comments Yes 0 [...] Recorded Patient Health Questionnaire-2 Score 1 02/09/2025 [facility] Occupat ional Health - Occupational Stress [...] place to sleep or slept in a fpc (including now)? No 04/13/2023 Comments No Sex and Gender Information Value Date Recorded Sex Assigned at Not on file Legal Sex Female 5:36 AM EMBROIDERY SPECIALIST Gender Identity Not on file Sexual Orientation Not on file Last Filed Vital Signs Vital Sign Reading Time Taken Comments Blood Pressure 136/88 02/09/2025 9:20 AM CDT Pulse 78 02/09/2025 9:20 AM CDT Temperature 36.1 C (97 F) 02/09/2025 9:20 AM CDT Respiratory Rate 14 02/09/2025 9:20 AM CDT Oxygen Saturation 99% 02/09/2025 9:20 AM CDT Inhaled Oxygen Concentration - - Weight 124.7 kg (275 lb) 02/09/2025 9:20 AM CDT Height 165.1 cm (5' 5) 02/09/2025 9:20 AM CDT Body Mass Index 45.76 02/09/2025 9:20 AM CDT Plan of Treatment Upcoming Encounters Date Type Department Care Team (Late st Contact Info) Description 04/19/2025 8:00 AM CDT Office Visit [facility] - Pulmonology [address] [place] [phone] Mario Decker MD [address] [place] [phone] 05/16/2025 8:20 AM CDT Office Visit [facility] - Family Medicine [address] [place] [phone] Love Diaz, CONTINUOUS CONVEYOR SCREEN DRIER-ACID MAKER [address] [place] [address] Health Maintenance Due Date Last Done Comments HEPATITIS B VACCINE (1 of 3 - 19+ 3-dose series) 2008 PNEUMOCOCCAL VACCINE (1 of 2 - PCV) 2008 HPV VACCINE (1 - 3-dose SCDM series) 2016 PAP SMEAR 11/13/2023 11/12/2020 (Done Outside Per Report) COVID-19 VACCINE (3 - 2023- season) 2025 02/20/2021, 12/10/2020 Postponed from 04/03/2024 (Patient Refused) INFLUENZA VACCINE (#1) 2025 , 07/07/2023, 06/18/2022, Additional history exists DTAP/TDAP/TD VACCINES (5 - Td or Tdap) 09/08/2027 09/08/2017, 03/27/1995, 04/18/1994, Additional history exists ZOSTER VACCINE (1 of 2) 2039 HIB VACCINE Completed 04/18/1994 HEPATITIS C SCREENING Completed 02/13/2024 HIV SCREENING Completed 02/13/2024 DEPRESSION SCREENING Completed 08/30/2024, 09/09/2023, 05/23/2023 MENINGOCOCCAL (Group B) VACCINE SHARED DECISION-MAKING Aged Out No longer eligible based on patient's age to complete this topic MENINGOCOCCAL GROUPS A/C/Y/W VACCINE Aged Out No longer eligible based on patient's age to complete this topic Procedures Procedure Name Priority Date/Time Associated Diagnosis Comments HEPATITIS C ANTIBODY Routine 02/13/2024 9:37 AM CDT Screen for STD (sexually transmitted disease) HIV-1 HIV-2 ANTIBODY + HIV P24 AG PANEL Routine 02/13/2024 9:37 AM CDT Screen for STD (sexually transmitted disease) from Last 3 Months or Most Recently Relevant to Health Maintenance Results * HIV-1 HIV-2 ANTIBODY + HIV P24 AG PANEL (02/13/2024 9:37 AM CDT) HIV Screen 4th Generation w Reflex Non Reactive Non Reactive [facility] ACCOUNT BILL Comment: HIV-1/HIV-2 antibodies and HIV-1 p24 antigen were NOT detected. There is no laboratory evidence of HIV infection. HIV Negative Blood BLOOD SPECIMEN / Unknown 02/13/2024 9:37 AM CDT 02/13/2024 Narrative Resulting Agency Comment Lab Testing performed at: [facility] [id number] Love Diaz CONTINUOUS CONVEYOR SCREEN DRIER-ACID MAKER LAB - CHEMISTRY ORDERABL ES Final Result [facility] ACCOUNT BILL [address] [place] [address] * HEPATITIS C ANTIBODY (02/13/2024 9:37 AM CDT) Hepatitis C Antibody Non Reactive Non Reactive [facility] ACCOUNT BILL Comment: HCV antibody alone does not differentiate between previously resolved infection and active infection. Equivocal and Reactive HCV antibody results should be followed up with an HCV RNA test to support the diagnosis of active HCV infection. Blood BLOOD SPECIMEN / Unknown 02/13/2024 9:37 AM CDT 02/13/2024 Narrative Resulting Agency Comment Lab Testing performed at: [employer] [facility] [id number] Love Diaz CONTINUOUS CONVEYOR SCREEN DRIER-ACID MAKER LAB - CHEMISTRY ORDERABL ES Final Result [facility] ACCOUNT BILL [address] [place] [address] from Last 3 Months or Most Recently Relevant to Health Maintenance Insurance MEDICA [facility] Advance Directives * Full Code (Latest Code Status on File) Date Activated Date Inactivated Comments 04/13/2023 1:07 PM 04/15/2023 6:18 PM Care Teams Training Specialist Relationship Specialty Start Date End Date Love Diaz APRN-ACID MAKER [address] [place] [phone] PCP - Attributed-[employer] [facility] 08/03/23 Love Diaz APRN-ACID MAKER [address] [place] [phone] PCP - General Nurse Practitioner 02/17/24 [place] [address] [facility] [address] [place] [address] System Integration Engineer Cardiovascular Disease 12/01/22
--- OUTSIDE RECORDS SUMMARY | 2025-02-22 14:58 | XMS_ITS | Clinical Summary ---
Author Organization [facility] Care Team Providers Care Return To Factory Clerk Name Role Phone Unavailable Primary Care Provider Unavailabl e Social History Tobacco Use Types Packs/Day Years Used Date Smoking Tobacco: Never Assessed Comments Unknown Sex and Gender Information Value Date Recorded Sex Assigned at Not on file Legal Sex Female 3:03 PM CDT Gender Identity Not on file Sexual Orientation Not on file Plan of Treatment Health Maintenance Due Date Last Done Comments Hepatitis C Virus (HCV) Screening 1989 TdaP Immunization 1989 Hepatitis B Immunization (1 of 3 - 19+ 3-dose series) 2008 Pap Smear 2010 Cervical Cancer Screening (CCS) 2019 HPV/Cotest 2019 Influenza Immunization (#1) 2024 SARS-COV-2 Immunization ( season) 2024 Respiratory Syncytial Virus (RSV) Immunization (Adult) (1 - 1-dose 75+ series) 2064 DTaP/Tdap/Td Immunization Discontinued 1994, 04/18/1994, 1989 Meningococcal Immunization (ACWY) Aged Out No longer eligible based on patient's age to complete this topic Pneumococcal Immunization Combined Aged Out No longer eligible based on patient's age to complete this topic Rotavirus Immunization Aged Out No lo nger eligible based on patient's age to complete this topic
--- OUTSIDE RECORDS SUMMARY | 2025-02-22 14:58 | XMS_ITS | Encounter Summary ---
Author Organization [facility] Address [address] [place] [address] Care Team Providers Care Director Custom Name Role Phone Unavailable Primary Care Provider Unavailabl e Prior Encounters Date Type Department Care Team Description 08/22/2019 Converted 13x Documents [facility] [address] [place] [address] <No scans attached> Plan of Treatment Not on file Procedures Procedure Name Priority Date/Time Associated Diagnosis Comments CANCELLED APPOINTMENT Routine 03/23/2020 2:00 AM CDT Visit Diagnoses Not on file
--- OUTSIDE RECORDS SUMMARY | 2025-02-22 14:58 | XMS_ITS | Encounter Summary ---
Author Organization [facility] Address [address] [place] [address] Care Team Providers Care Office Machines Wirer Name Role Phone Henry Suarez MD Unavailable Anabell Thompson MD Primary Care Provider Love Diaz CRYPTOLOGIC TECHNICIAN-WIRE THREADER Primary Care Provider + Love Daiz CRYPTOLOGIC TECHNICIAN-WIRE THREADER Unavailable [phone] Deyanira De La Fuente RN Unavailable [phone] Anabell Thompson MD Primary Care Provider Love Diaz CRYPTOLOGIC TECHNICIAN-WIRE THREADER Primary Care Provider + Aiyana Esposito Unavailable [phone] Reason for Visit * Reason Onset Date Comments Concerns 08/31/2023 Establish Care 08/31/2023 Encounter Details Date Type Department Care Team (Late st Contact Info) Description 08/31/2023 Telephone [facility] - HOIST WORKER [address] [place] [address] Izabella Inman MD [address] [place] [address] Concerns; Establish Care Social History Tobacco Use Types Packs/Day Years [...] Date Recorded Patient Health Questionnaire-2 Score 0 07/29/2023 [facility] - Occupational Stress Questionnaire Answer Date Recorded [...] place to sleep or slept in a prison (including now)? No 04/13/2023 Comments No Sex and Gender Information Value Date Recorded Sex Assigned at Not on file Legal Sex Female 5:36 AM TRIBAL JUDGE Gender Identity Not on file Sexual Orientation Not on file documented as of this encounter Functional Status * Is person deaf or have serious hearing difficulty? Answer Date of Assessment Author No 04/13/2023 2:30 PM CDT Doug Bell, RN * Is person blind or have [...] encounter Miscellaneous Notes * Telephone Encounter - Aracely Titus RN - 08/31/2023 2:06 PM TRIBAL JUDGE Pt new pt office. Pt saw Fanny gynecological assistant in July who recommended urogyn for vaginal cyst. Pt currently scheduled with PX. RN doesn't see anything sooner. RN called pt. No answer, left VM needing to clarify who pt needed to see. If pt returns call, please clarify if she needs urogyn and schedule. If she needs gynecological assistant can look at first available with other providers AL JUDGE * Telephone Encounter - Yovana Rodriguez - 08/31/2023 1:25 PM CST Pt took next available with Dr. Inman for a cyst. She states it is stating to give her more issues and increased in size. Gave her 2.13.24 and placed on waiting list. Wants to know if it is at all possible for her to be seen sooner. Please advise. AL JUDGE documented in this encounter Plan of Treatment Upcoming Encounters Date Type Department Care Team (Late st Contact Info) Description 04/19/2025 8:00 AM CDT Office Visit [facility] - Pulmonology [address] [place] [phone] Mario Decker MD [address] [place] [phone] 05/16/2025 8:20 AM CDT Office Visit [facility] Medicine [address] [place] [address] Love Diaz, CRYPTOLOGIC TECHNICIAN-WIRE THREADER [address] [place] [address] documented as of this encounter Visit Diagnoses Not on filedocumented in this encounter Additional Health Concerns Infection Onset Date Last Indicated Resolved Time COVID-19 Under Investigation 11/10/2023 11/10/2023 11/10/2023 7:14 PM CDT Influenza A or B 11/10/2023 11/10/2023 11/17/2023 4:33 AM CDT COVID-19 Under Investigation 09/06/2024 09/06/2024 09/06/2024 4:15 PM TRIBAL JUDGE documented as of this encounter Care Teams Office Machines Wirer Relationship Specialty Start Date End Date Anabell Thompson MD [address] [place] [address] PCP - General Internal Medicine 07/07/23 09/14/23 Love Diaz, CRYPTOLOGIC TECHNICIAN-WIRE THREADER [address] [place] [address] PCP - General Nurse Practitioner 09/15/23 02/15/24 Love Diaz CRYPTOLOGIC TECHNICIAN-WIRE THREADER [address] [place] [address] PCP - Attributed-[facility] 08/03/23 Anabell Thompson MD [address] [place] [address] PCP - General Internal Medicine 02/16/24 02/16/24 Love Diaz, CRYPTOLOGIC TECHNICIAN-WIRE THREADER [address] [facility] [address] [place] [phone] PCP - General Nurse Practitioner 02/17/24 [place] [address] [facility] [address] [place] [phone] Structural Engineering Project Manager Cardiovascular Disease 12/01/22 Deyanira De La Fuente RN Analysis [employer] Property Disposal Agent 01/05/24 02/08/24 Aiyana Esposito Care Coordination Specialist Care Management 11/15/24 12/30/24 documented as of this encounter
--- OUTSIDE RECORDS SUMMARY | 2025-02-22 14:58 | XMS_ITS | Encounter Summary ---
Author Organization [facility] Address [address] [facility] [place] [address] Care Team Providers Care Substance Abuse Specialist Name Role Phone Henry Suarez MD Unavailable [phone] Love Diaz ACCOUNTING MACHINE MECHANIC-EMERGENCY PHYSICIAN Unavailable [phone] Love Diaz ACCOUNTING MACHINE MECHANIC-EMERGENCY PHYSICIAN Primary Care Provider + Reason for Visit * Reason Onset Date Comments Late Cancel 01/02/2025 Encounter Details Date Type Department Care Team (Late st Contact Info) Description 01/02/2025 Telephone [facility] - Family Medicine [address] [facility], [address] [address] Love Diaz ACCOUNTING MACHINE MECHANIC-EMERGENCY PHYSICIAN [address] [phone] Late Cancel Social History Tobacco Use Types Packs/Day Years [...] Date Recorded Patient Health Questionnaire-2 Score 1 08/30/2024 [facility] [place] [facility] - Occupational Stress [...] place to sleep or slept in a longterm (including now)? No 04/13/2023 Comments No Sex and Gender Information Value Date Recorded Sex Assigned at Not on file Legal Sex Female 5:36 AM REGIONAL SALES ENGINEER Gender Identity Not on file Sexual Orientation Not on file documented as of this encounter Functional Status * Is person deaf or have serious hearing difficulty? Answer Date of Assessment Author No 04/13/2023 2:30 PM Doug Crane, RN * Is person blind or have serious difficulty seeing? Answer Date of Assessment Author No 04/13/2023 2:30 PM LEXIIT Doug eBll, RN * Does person have serious difficulty walking/climbing stairs? Answer Date of Assessment Author No 04/13/2023 2:30 PM LEXIIT Doug Bell, RN * Does person have difficulty dressing/bathing? Answer Date of Assessment Author No 04/13/2023 2:30 PM Doug Crane, RN * Does person have difficulty doing errands alone? Answer Date of Assessment Author No 04/13/2023 2:30 PM CDT Doug Bell RN documented as of this encounter Mental Status * Does person have difficulty concentrating/remembering/making decisions? Answer Entry Date Author No 04/13/2023 2:30 PM CDT Doug Bell RN documented in this encounter Miscellaneous Notes * Telephone Encounter - Sandie Ga - 01/02/2025 1:21 PM CDT Ethel Noonan called and canceled their same day appointment Appointment Date: 01/02/25 Appointment Time: 3:40 If rescheduled: 02/09/2025 Provider: Joe documented in this encounter Plan of Treatment Upcoming Encounters Date Type Department Care Team (Late st Contact Info) Description 04/19/2025 8:00 AM CDT Office Visit [facility] - Pulmonology [address] [place] [phone] Mario Decker MD [address] [place] [phone] 05/16/2025 8:20 AM CDT Office Visit [facility] - Family Medicine [address] [place] [address] Love Diaz APRN-CNP [address] [place] [address] documented as of this encounter Visit Diagnoses Not on filedocumented in this encounter Care Teams Substance Abuse Specialist Relationship Specialty Start Date End Date Love Diaz APRN-CNP [address] [place] [address] PCP - Attributed-[facility] 08/03/23 Love Diaz APRN-MUSTAPHA [address] [facility] [address] [place] [phone] PCP - General Nurse Practitioner 02/17/24 [place] [id number] [address] Police Patrol Officer Cardiovascular Disease 12/01/22 documented as of this encounter
--- OUTSIDE RECORDS SUMMARY | 2025-02-22 14:58 | XMS_ITS | Clinical Summary ---
Author Organization [facility] Address [address] [place] [address] Care Team Providers Care Ethylbenzene Converter Operator Name Role Phone Unavailable Primary Care Provider Unavailabl e Social History Tobacco Use Types Packs/Day Years Used Date Smoking Tobacco: Never Assessed Comments Unknown Sex and Gender Information Value Date Recorded Sex Assigned at Not on file Legal Sex Female 9:04 PM PDT Gender Identity Not on file Sexual Orientation Not on file Plan of Treatment Not on file
--- OUTSIDE RECORDS SUMMARY | 2025-02-22 14:58 | XMS_ITS | Clinical Summary ---
Author Organization [facility] al Address [address] [place] [address] Care Team Providers Care Production Truck Driver Name Role Phone Henry Brown MD Unavailable [phone] Love Diaz NP Primary Care Provider [phone] Allergies Active Allergy Reactions Criticality Noted Date [...] loss. Assessment & Plan (08/12/2022 8:07 AM FITTING ROOM MAINTENANCE MECHANIC): Chronicity and stability unknown-patient has been referred to gynecology due to right ovarian cyst, also being seen by endocrinology for new finding of myelolipoma right adrenal gland, explained both can address concerns regarding unwanted hair growth and possible PCOS. Thrombocytosis 08/12/2022 Assessment & Plan (12/28/2022 9:35 AM CDT): Chronic, stable-encouraged to schedule appointment with vice president [employer], previously referred. Assessment & Plan (08/12/2022 8:07 AM FITTING ROOM MAINTENANCE MECHANIC): Chronic, worsening-referred to Hematology for further evaluation and management. Female hirsutism 08/07/2022 Assessment & Plan (12/28/2022 9:37 AM CDT): Chronic, stable-advised to follow with staff development educator and conservation educator as recommended. Assessment & Plan (08/12/2022 8:05 AM FITTING ROOM MAINTENANCE MECHANIC): Chronic, stable-patient has been referred to gynecology due to right ovarian cyst, also being seen by endocrinology for new finding of myelolipoma right adrenal gland, explained both can address concerns regarding unwanted hair growth and possible PCOS. Myelolipoma of right adrenal gland 08/07/2022 Assessment & Plan (12/28/2022 9:36 AM CDT): Chronicity and stability unknown-encouraged follow-up with conservation educator as recommended. Assessment & Plan (08/12/2022 8:03 AM FITTING ROOM MAINTENANCE MECHANIC): Chronicity and stability unknown-reassured patient benign lesion, however referred to conservation educator for further evaluation and monitoring/management if needed. Seasonal rhinitis 01/03/2022 Assessment & Plan (12/28/2022 9:37 AM CDT): Chronic, stable, controlled with medication-continued on cetirizine. Assessment & Plan (01/03/2022 4:43 PM CDT): Chronic, stable, controlled with as needed medication-refills for cetirizine sent to pharmacy per patient request. Heart palpitations 12/06/2021 Assessment & Plan (12/28/2022 9:38 AM CDT): Chronic, episodic-encouraged to follow-up with hourly sales staff as recommended. Assessment & Plan (01/03/2022 4:40 [...] week. Assessment & Plan (08/12/2022 8:04 AM FITTING ROOM MAINTENANCE MECHANIC): Chronic, worsening per patient report, not improving with dietary changes, however stable since 06/2022-referred to conservation educator for further evaluation and management. Assessment & [...] AM CDT): Chronic, episodic-encouraged to follow-up with hourly sales staff and purchasing supervisor as recommended. Assessment & Plan (09/04/2021 1:30 PM FITTING ROOM MAINTENANCE MECHANIC): Acute, intermittent-started on prednisone 20 mg 1 [...] Chronic, controlled-continued on norethindrone. Encouraged follow-up with staff development educator as recommended. ROSE (generalized anxiety disorder) 07/02/2021 [...] psychologist for counseling, again advised calling insurance [employer] for a list of providers, then calling provider to schedule an appointment. Again, recommended that she consider evaluation by a psychiatrist, instructing to call insurance for list of providers, then call to schedule to an appointment for evaluation. Recommended follow-up in 4 weeks. Assessment & Plan (09/04/2021 1:31 PM FITTING ROOM MAINTENANCE MECHANIC): Chronic, stable, uncontrolled, not on medication, referred at last visit to a psychiatrist and psychologist-encouraged to make appointment with psychiatrist and psychologist as previously discussed. Also, previous started on Lexapro which she stopped taking due to suspected side effect of low-grade fever, advised okay to restart Lexapro 10 mg once daily if desired. Assessment & Plan (07/02/2021 2:37 PM FITTING ROOM MAINTENANCE MECHANIC): Chronic, stable, uncontrolled, not on medication previously [...] a psychologist for counseling, again advised calling [employer] for a list of providers, then calling provider to schedule an appointment. Again, recommended that she consider evaluation by a psychiatrist, instructing to call insurance for list of providers, then to call to schedule an appointment for evaluation. Recommended follow-up in 4 weeks. Assessment & Plan (09/04/2021 1:31 PM FITTING ROOM MAINTENANCE MECHANIC): Chronic, stable, uncontrolled, not on medication, referred at last visit to a psychiatrist and psychologist-encouraged to make appointment with psychiatrist and psychologist as previously discussed. Also, previous started on Lexapro which she stopped taking due to suspected side effect of low-grade fever, advised okay to restart Lexapro 10 mg once daily if desired. Assessment & Plan (07/02/2021 2:37 PM FITTING ROOM MAINTENANCE MECHANIC): Chronic, stable, uncontrolled, not on medication previously [...] needed. Assessment & Plan (09/04/2021 1:29 PM FITTING ROOM MAINTENANCE MECHANIC): Chronic, currently asymptomatic, with x-rays ordered at initial/last visit- encouraged to get x-ray of lumbar spine along with x-ray of right hip for persistent right upper anterior thigh pain. Assessment & Plan (07/02/2021 2:38 PM FITTING ROOM MAINTENANCE MECHANIC): Chronic, episodic, with worsening upper right thigh pain-ordered x-ray of lumbar spine and right hip. Other constipation 07/02/2021 Assessment & Plan (12/28/2022 9:39 AM CDT): Chronic, episodic, not currently on daily medication-encouraged to use MiraLax as directed as needed. Assessment & Plan (07/02/2021 2:39 PM FITTING ROOM MAINTENANCE MECHANIC): Chronic, stable, likely related to daily iron supplement-recommended 1-2 Colace HS as needed. Bilateral lower extremity edema 07/02/2021 Assessment & Plan (12/28/2022 9:39 AM CDT): Chronic, stable, controlled with medication-continued on hydrochlorothiazide. Assessment & Plan (07/02/2021 2:40 PM FITTING ROOM MAINTENANCE MECHANIC): Chronic, stable, waxes and wanes per patient, on daily diuretic-continued on hydrochlorothiazide and encouraged to keep follow-up appointment with hourly sales staff, Dr. Brown. Gastroesophageal reflux dise ase with esophagitis without hemorrhage 08/03/2020 Assessment & Plan (12/28/2022 9:41 AM CDT): Chronic, stable, controlled with medication-continued on sucralfate, pantoprazole, and famotidine. Advised to follow-up with manager heavy duty as recommended. Assessment & Plan (09/04/2021 1:33 PM FITTING ROOM MAINTENANCE MECHANIC): Chronic, stable, controlled with medication-continued on omeprazole, famotidine, and sucralfate per manager heavy duty. Assessment & Plan (07/02/2021 2:35 PM FITTING ROOM MAINTENANCE MECHANIC): Chronic, stable, uncontrolled per patient report-continued on omeprazole, sucralfate, famotidine, and Zofran as directed. Encouraged to keep appointment today with manager heavy duty to discuss symptoms. Assessment & Plan (08/03/2020 1:14 PM FITTING ROOM MAINTENANCE MECHANIC): Continue your pantoprazole BID Pepcid [place] diet. Shortness of breath 05/03/2020 Assessment & Plan (12/28/2022 9:41 AM CDT): Chronic, stable, likely multifactorial-continued on albuterol as directed as needed. Advised to follow-up with hourly sales staff and purchasing supervisor as recommended. Encouraged weight loss. Assessment & Plan (01/03/2022 4:39 PM CDT): Chronic, stable, now established with a purchasing supervisor with recent PFT-encouraged to keep recommended follow-up appointment with purchasing supervisor, Dr. Lyons. Continued on albuterol inhaler as directed as needed. Assessment & Plan (12/06/2021 5:52 AM CDT): Chronic, stable, previously referred to pulmonology-advised to call to schedule an appointment. Assessment & Plan (09/04/2021 1:37 PM FITTING ROOM MAINTENANCE MECHANIC): Acute, intermittent-started on prednisone 20 mg 1 tablet twice daily x5 days. Encouraged to use albuterol inhaler as directed as needed for chest tightness, wheezing. and coughing jags. Instructed to go to ER if difficulty breathing or if not getting relief of symptoms with inhaler. Voiced understanding. Assessment & Plan (07/02/2021 2:32 PM FITTING ROOM MAINTENANCE MECHANIC): Chronic, episodic, stable, likely multifactorial, prescribed an inhaler with perceived benefit-continued on albuterol metered dose inhaler as directed as needed. Encouraged to follow-up with hourly sales staff, Dr. Brown, as recommended for pulmonary hypertension. Anemia 05/03/2020 Assessment & Plan (12/28/2022 9:41 AM CDT): Chronic, controlled at last check, not on multivitamin or iron supplement-will monitor CBC periodically. Assessment & Plan (09/04/2021 10:44 AM FITTING ROOM MAINTENANCE MECHANIC): Chronic, stable-encouraged to continue iron supplement daily. Assessment & Plan (07/02/2021 2:34 PM FITTING ROOM MAINTENANCE MECHANIC): Chronic, stable-reviewed with patient most recent CBC, [...] amlodipine, lisinopril, and hydrochlorothiazide. Encouraged follow-up with hourly sales staff as recommended. Assessment & Plan (08/12/2022 8:06 AM FITTING ROOM MAINTENANCE MECHANIC): Chronic, stable, controlled with medication-continued on metoprolol XL, amlodipine, lisinopril, and hydrochlorothiazide. Assessment & Plan (01/03/2022 4:42 PM CDT): Chronic, stable, uncontrolled on medication-continued on hydrochlorothiazide, lisinopril, metoprolol, and amlodipine. Encouraged to keep consultation appointment with hourly sales staff on 01/16/2022. Assessment & Plan (07/02/2021 2:31 PM FITTING ROOM MAINTENANCE MECHANIC): Chronic, stable, controlled on medications-continued on amlodipine, hydrochlorothiazide, lisinopril, and metoprolol. Encouraged to follow-up with hourly sales staff, Dr. Brown, as recommended. Pulmonary hypertension 12/12/2019 Assessment & Plan (12/28/2022 9:44 AM CDT): Chronicity and stability unknown-encouraged to follow-up with cardiology and pulmonology as recommended. Assessment & Plan (07/02/2021 2:30 PM FITTING ROOM MAINTENANCE MECHANIC): Chronic, stability unknown-encouraged to follow-up with hourly sales staff, Dr. Brown, as recommended. Sleep apnea 12/12/2019 Assessment & Plan (12/28/2022 9:43 AM CDT): Chronic, stability unknown-encouraged weight loss. Advised follow-up with sleep medicine as recommended. Assessment & Plan (07/02/2021 2:31 PM FITTING ROOM MAINTENANCE MECHANIC): Chronic, stability unknown-encouraged better compliance with CPAP, instructed to use nightly. 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 Assessment & Plan (01/03/2022 4:39 PM CDT): Chronic, stable, now established with a purchasing supervisor with recent PFT-encouraged to keep recommended follow-up appointment with purchasing supervisor, Dr. Lyons. Continued on albuterol inhaler as [...] symptoms. Assessment & Plan (09/04/2021 1:29 PM FITTING ROOM MAINTENANCE MECHANIC): Acute symptoms suggestive of acute bronchitis-started on azithromycin and prednisone, advised to use albuterol inhaler as directed as needed. Instructed to go to ER difficulty breathing. Patient voiced understanding. Productive cough 09/04/2021 12/23/2022 Assessment & Plan (09/04/2021 1:36 PM FITTING ROOM MAINTENANCE MECHANIC): Acute, sputum now white, previously yellow, but still with shortness of breath and chest tightness-started on Z-Rogers as directed as needed and prednisone 20 mg 1 tablet twice daily x5 days. Referred to purchasing supervisor for further evaluation and management. Advised to go to ER if difficulty breathing or symptoms not relieved with albuterol inhaler. Voiced understanding. Ground glass opacity present on imaging of lung 09/04/2021 12/23/2022 Assessment & Plan (09/04/2021 1:34 PM FITTING ROOM MAINTENANCE MECHANIC): New finding on recent chest x-ray dated 09/01/2021, not present on x-ray dated 07/16/2021-started on Z-Rogers as directed as needed and prednisone 20 mg 1 tablet twice daily. Referred to purchasing supervisor for furtgher evaluation and management of symptoms and abnormal chest x-ray. Suspected COVID-19 virus infection 08/22/2021 12/25/2022 Assessment & Plan (08/22/2021 12:05 PM FITTING ROOM MAINTENANCE MECHANIC): Recommended symptomatic treatment with ponx-mtp-okouved medications and reminded can use albuterol inhaler [...] appointment. Assessment & Plan (09/04/2021 1:37 PM FITTING ROOM MAINTENANCE MECHANIC): Acute, stable-encouraged patient to schedule an appointment with supply chain logistics manager referral made at initial/last visit on 07/02/2021. Assessment & Plan (07/02/2021 2:37 PM FITTING ROOM MAINTENANCE MECHANIC): Acute, episodic, worsening as evidence by increased frequency-referred to supply chain logistics manager for further evaluation and management. Pain of right thigh 07/02/2021 12/26/19 23 Assessment & Plan (09/04/2021 1:35 PM FITTING ROOM MAINTENANCE MECHANIC): Chronic, stable, with x-rays ordered at initial/last visit-encouraged to get x- ray of lumbar spine along with x-ray of right hip for persistent right upper anterior thigh pain. Assessment & Plan (07/02/2021 2:39 PM FITTING ROOM MAINTENANCE MECHANIC): Chronic, episodic, worsening-ordered x-ray of lumbar spine [...] symptoms develop. Provided with a note via [employer] excusing absence from work today. Assessment & Plan (08/03/2020 1:15 PM FITTING ROOM MAINTENANCE MECHANIC): Muscle relaxant to help her body to relax. Cyclobenzaprine 10 mg Tylenol for discomfort. Drink fluids. Assessment & Plan (2020 2:51 PM FITTING ROOM MAINTENANCE MECHANIC): Instructed to continue with Mucinex DM and [...] Vaccination (12+ Yrs) PURPLE 02/20/2021,12/10/2020 Tdap 09/08/2017 Surgical History Surgery Date Site/Laterality Comments OOPHERECTOMY TONSILLECTOMY SECTION CHRISTIANO-EN-Y PROCEDURE Medical History Medical History Date Comments Hypertension Ovarian cyst Covid-19 2020 Ground glass opacity present on imaging of lung 09/04/2021 Sleep apnea Family History Medical History Relation Name Comments Lung cancer Father Breast cancer Maternal Grandmother Heart disease Mother Hypertension Mother Pancreatic cancer Mother bowel obstruction Mother's Brother Breast cancer Mother's Sister 1 Pancreatic cancer Mother's Sister 2 Stomach cancer Mother's Sister 2 Relation Name Status Comments Father Maternal Grandmother Mother Mother's Brother Alive Mother's Sister 1 Alive Mother's Sister 2 Alive Social History Tobacco Use Types Packs/Day Years [...] on file Legal Sex Female 8:01 AM FITTING ROOM MAINTENANCE MECHANIC Gender Identity Female 11/11/2021 6:04 PM CDT Sexual Orientation Not on file Obstetrics History Para Term AB IAB SAB Ectopic Multiple Livin g Live Births 1 1 Date Outcome GA Total Labor Labor/2nd/3rd Weight Sex Type Anes PTL Digna A1 A5 Name Clin Last Filed Vital Signs Vital Sign Reading Time Taken Comments Blood Pressure 139/87 11/25/2023 3:54 PM CDT Pulse 76 11/25/2023 3:54 PM CDT Temperature 36.8 C (98.3 F) 07/17/2023 1:49 PM FITTING ROOM MAINTENANCE MECHANIC Respiratory Rate 18 07/17/2023 11:4 6 PM FITTING ROOM MAINTENANCE MECHANIC Oxygen Saturation 100% 07/17/2023 11: 46 PM FITTING ROOM MAINTENANCE MECHANIC Inhaled Oxygen Concentration - - Weight 128.2 kg (282 lb 9.6 oz) 11/25/2023 3:54 PM CDT Height 167.6 cm (5' 6) 11/25/2023 3:54 PM CDT Body Mass Index 45.61 11/25/2023 3:54 PM CDT Plan of Treatment Health Maintenance Due Date Last Done Comments Hepatitis B Screening 2007 Pneumococcal vaccine <65 (1 of 2 - PCV) 2008 Cervical Cancer Screening 11/12/2021 11/12/2020 Depression Screening 12/24/2023 12/23/2022, 12/23/2022, 01/03/2022, Additional history exists Regular Well Visit/Exam 18-64 12/24/2023 12/23/2022, 09/24/2022, 11/12/2020 Covid-19 Vaccine ( season) 2024 02/20/2021, 12/10/2020 Influenza Vaccine (#1) 2025 , 06/18/2022, 09/08/2017 DTaP/Tdap/Td Vaccine (5 - Td or Tdap) 09/08/2027 09/08/2017, 03/27/1995, 04/18/1994, Additional history exists Hepatitis C Screening Completed 11/12/2020 HPV Vaccines Aged Out No longer eligi ble based on patient's age to complete this topic Varicella Vaccines Discontinued Procedures Procedure Name Priority Date/Time Associated Diagnosis Comments HEPATITIS PANEL, ACUTE Routine 11/12/2020 12:28 PM CDT Screening for STD (sexually transmitted disease) THINPREP PAP WITH HPV Routine 11/12/2020 12:01 AM CDT Well woman exam with routine gynecological exam from Last 3 Months or Most Recently Relevant to Health Maintenance Results * Hepatitis panel, acute (11/12/2020 12:28 PM CDT) HepBsAg NONREACT NONREACTIVE [facility] [place] Comment: Siemens CentaurXP using SANDY (chemiluminescent immunoassay) technology. NONREACTIVE: IgM antibodies to Hepatitis B Surface antigen not detected. REACTIVE: IgM antibodies to Hepatitis B Surface antigen detected. Reactive results will be confirmed by neutralization testing. HBsAb qn <3.10 mIU/mL [facility] [place] Comment: Siemens CentaurXP using SANDY (chemiluminescent immunoassay) technology. 9.99 IU/L or less.....NONREACTIVE: IgM antibodies to Hepatitis B Surface antibody are not detected. 10.00 IU/L or greater..REACTIVE: IgM antibodies to Hepatitis B Surface antibody are detected. Hep B core IgM NONREACT NONREACTIVE [facility]NOTE 3] Comment: Siemens CentaurXP using SANDY (chemiluminescent immunoassay) technology. NONREACTIVE: IgM antibodies to Hepatitis B Core antigen not detected. EQUIVOCAL: IgM antibodies to Hepatitis B Core antigen may or may not be present. Obtain a new specimen and retest. REACTIVE: IgM antibodies to Hepatitis B Core antigen detected. Hep A IgM NONREACT NONREACTIVE [facility] [place] Comment: Siemens CentaurXP using SANDY (chemiluminescent immunoassay) technology. NONREACTIVE: IgM antibodies to Hepatitis A not detected. This does not exclude possibility of exposure to Hepatitis A or early acute infection. EQUIVOCAL:IgM antibodies to Hepatitis A may or may not be present. Suggest recollection and retest. REACTIVE: Antibodies to Hepatitis A detected. Hep C Ab NONREACT NONREACTIVE [facility] [place] Comment: Siemens CentaurXP using SANDY (chemiluminescent immunoassay) [...] MICROBIOLOGY - GEN ERAL ORDERABLES Final Result [address] [phone] * ThinPrep Pap with HPV (11/12/2020 12:01 AM CDT) Pap test 11/12/2020 12:0 1 AM CDT 11/14/2020 9:57 AM CDT Narrative 11/19/2020 11:26 AM CDT [facility] Department of Pathology [address] [place] [address] Final Report with Addendum Patient Name: ETHEL JHA Address: [address] [place] [address] Gender: F : 1990 (Age: 30) Service: Laboratory Location: Lab Hospital #: [id number] Patient Type: Ref Lab Taken: 11/12/2020 Received: 11/14/2020 Accessioned:: 11/15/2020 Reported: 11/19/2020 Physician(s): Dr. Ysabel Langston D.O. [facility] Diagnosis: Source of Specimen: Screening ThinPrep Imaged [...] determined by the Surgical Pathology Department at [facility] as part of an ongoing quality assurance supervisor final program and in compliance with federally mandated [...] characteristics determined by the Surgical Pathology Department [facility]. It has not been cleared or approved by the U. S. Food and Drug Administration. Ysabel Langston DO LAB CYTOLOGY ORDERABLE S Final Result from Last 3 Months or Most Recently Relevant to Health Maintenance Insurance [facility] [facility] Care Teams Production Truck Driver Relationship Specialty Start Date End Date Love Diaz NP [phone] [address] PCP - General Nurse Practitioner 11/25/23 Henry Brown MD [address] [address] Staff Consultant Cardiology 12/07/19
--- OUTSIDE RECORDS SUMMARY | 2025-02-22 14:58 | XMS_ITS | Encounter Summary ---
Author Organization [facility] Address [address] [place] [address] Phone Care Team Providers Care Vascular Technologist Name Role Phone Tamar Guerrero MD Primary Care Provider + [phone] Unknown, Notinfile Primary Care Provider Unavail able Tamar Guerrero MD Primary Care Provider + [phone] Unknown, Notinfile Primary Care Provider Unavail able Tamar Guerrero MD Primary Care Provider + [phone] Unknown, Notinfile Primary Care Provider Unavail able Tamar Guerrero MD Primary Care Provider + [phone] Unknown, Notinfile Primary Care Provider Unavail able Tamar Guerrero MD Primary Care Provider + [phone] Unknown, Notinfile Primary Care Provider Unavail able No, Physician Primary Care Provider [phone] Tamar Guerrero MD Primary Care Provider + [phone] No, Physician Primary Care Provider [phone] Tamar Guerrero MD Primary Care Provider + [phone] Tamar Guerrero MD Primary Care Provider + [phone] No, Physician Primary Care Provider [phone] Tamar Guerrero MD Primary Care Provider + [phone] No, Physician Primary Care Provider Tamar Guerrero MD Primary Care Provider No, Physician Primary Care Provider Tamar Guerrero MD Primary Care Provider No, Physician Primary Care Provider No, Physician Primary Care Provider Tamar Guerrero MD Primary Care Provider WitTamar payton MD Primary Care Provider No, Physician Primary Care Provider Tamar Guerrero MD Primary Care Provider No, Physician Primary Care Provider No, Physician Primary Care Provider Tamar Guerrero MD Primary Care Provider No, Physician Primary Care Provider No, Physician Primary Care Provider Tamar Guerrero MD Primary Care Provider No, Physician Primary Care Provider Tamar Guerrero MD Primary Care Provider No, Physician Primary Care Provider Tamar Guerrero MD Primary Care Provider No, Physician Primary Care Provider Tamar Guerrero MD Primary Care Provider Tamar Guerrero MD Primary Care Provider No, Physician Primary Care Provider Taamr Guerrero MD Primary Care Provider No, Physician Primary Care Provider Tamar Guerrero MD Primary Care Provider Cheryl Wallace MD Primary Care Provider Jose Henry MD Primary Care Provider Cheryl Wallace MD Primary Care Provider Henry Brown MD Unavailable [phone] Rhonda Warren DO Primary Care Provider [phone] Allie Drake Primary Care Provider Ysabel Langston DO Primary Care Provider No, Physician Primary Care Provider Allie Drake Primary Care Provider Sandie Jordan NP Primary Care Provider Unknown, Notinfile Primary Care Provider Unavail Love Rayo STRETCHER [employer] DRIER Primary Care Provider [phone] Encounter Details Date Type Department Care Team (Latest Contact Info) Description 07/14/2017 Orders Only [facility] CONVERSION Scanning, Provider Social History Tobacco Use Types Packs/Day Years Used Date Smoking Tobacco: Never Assessed Comments Unknown Sex and Gender Information Value Date Recorded Sex Assigned at Not on file Legal Sex Female 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 Gender Identity Female 11/11/2021 6:04 PM CDT Sexual Orientation Not on file documented as of this encounter Plan of Treatment Not on file documented as of this encounter Procedures Procedure Name Priority Date/Time Associated Diagnosis Comments OBSTETRIC/GYNECOLOGY ULTRASONOGRAPHY REPORT 08/13/2017 3:57 PM COKE OVEN PATCHER OBSTETRIC/GYNECOLOGY ULTRASONOGRAPHY REPORT 07/14/2017 1:04 PM COKE OVEN PATCHER documented in this encounter Results * OBSTETRIC/GYNECOLOGY ULTRASONOGRAPHY REPORT (08/13/2017 3:57 PM COKE OVEN PATCHER) Anatomical Region Laterality Modality Ultrasound us Provider Scanning IMG OB US PROCEDURES Final Res ult * OBSTETRIC/GYNECOLOGY ULTRASONOGRAPHY REPORT (07/14/2017 1:04 PM COKE OVEN PATCHER) Anatomical Region Laterality Modality Ultrasound us Provider [...] CDT COVID19 07/24/2020 07/24/2020 08/07/2020 3:07 AM COKE OVEN PATCHER COVID: Recovered Comment:Added based on recent COVID infection. 08/07/2020 08/07/2020 12/05/2020 3:05 AM C DT COVID19 Comment:jul 2020 12/01/2020 01/12/2022 01/22/2022 3:05 AM C DT Exposure, COVID-19 Comment:Added automatically based on COVID19 lab answers indicating exposure risk 09/01/2021 09/01/2021 09/11/2021 3:[address] COVID: Suspected 09/01/2021 09/01/2021 09/11/2021 3:05 AM COKE OVEN PATCHER COVID: Recovered Comment:Added based on recent COVID infection. 01/22/2022 01/23/2022 05/22/2022 3:05 AM C DT COVID: Suspected 03/12/2022 03/12/2022 03/12/2022 8:39 PM CDT documented as of this encounter Care Teams Vascular Technologist Relationship Specialty Start Date End Date Tamar Guerrero MD [address] [place] [address] PCP - General 07/14/17 07/14/17 Unknown, Notinfile PCP - General 07/15/17 08/03/17 Tamar Guerrero MD [address] [place] [address] PCP - General 08/04/17 08/09/17 Unknown, Notinfile PCP - General 08/10/17 08/10/17 Tamar Guerrero MD [address] [place] [address] PCP - General 08/11/17 08/12/17 Unknown, Notinfile PCP - General 08/13/17 08/17/17 Tamar Guerrero MD [address] [place] [address] PCP - General 08/18/17 08/20/17 Unknown, Notinfile PCP - General 08/21/17 08/24/17 Tamar Guerrero MD [address] [place] [address] PCP - General 08/25/17 08/25/17 Unknown, Notinfile PCP - General 08/26/17 08/27/17 No, Physician PCP - General 08/28/17 09/07/17 Tamar Guerrero MD [address] [place] [address] PCP - General 09/08/17 09/08/17 No, Physician PCP - General 09/09/17 09/13/17 Tamar Guerrero MD [address] [place] [address] PCP - General 09/14/17 09/14/17 Tamar Guerrero MD [address] [place] [address] PCP - General 09/15/17 09/15/17 No, Physician PCP - General 09/16/17 09/16/17 Tamar Guerrero MD [address] [place] [address] PCP - General 09/17/17 09/27/17 No, Physician PCP - General 09/28/17 09/28/17 Tamar Guerrero MD [address] [place] [address] PCP - General 09/29/17 09/29/17 No, Physician PCP - General 09/30/17 09/30/17 Tamar Guerrero MD [address] [place] [address] PCP - General 10/01/17 10/08/17 No, Physician PCP - General 10/09/17 10/11/17 No, Physician PCP - General 10/12/17 10/14/17 Tamar Guerrero MD [address] [place] [address] PCP - General 10/15/17 10/18/17 Tamar Guerrero MD [address] [place] [address] PCP - General 10/19/17 10/20/17 No, Physician PCP - General 10/21/17 10/21/17 Tamar Guerrero MD [address] [place] [address] PCP - General 10/22/17 10/22/17 No, Physician PCP - General 10/23/17 10/25/17 No, Physician PCP - General 10/26/17 10/28/17 Tamar Guerrero MD [address] [place] [address] PCP - General 10/29/17 11/01/17 No, Physician PCP - General 11/02/17 11/05/17 No, Physician PCP - General 11/06/17 11/07/17 Tamar Guerrero MD [address] [place] [address] PCP - General 11/08/17 11/09/17 No, Physician PCP - General 11/10/17 11/10/17 Tamar Guerrero MD [address] [place] [address] PCP - General 11/11/17 11/11/17 No, Physician PCP - General 11/12/17 11/15/17 Tamar Guerrero MD [address] [place] [address] PCP - General 11/16/17 11/17/17 No, Physician PCP - General 11/18/17 12/02/17 Tamar Guerrero MD [address] [address] PCP - General 12/03/17 12/09/17 Tamar Guerrero MD [address] [facility] [address] [place] [address] PCP - General 12/10/17 12/10/17 No, Physician PCP - General 12/11/17 12/13/17 Tamar Guerrero MD [address] [place] [address] PCP - General 12/14/17 12/18/17 No, Physician PCP - General 12/19/17 12/20/17 Tamar Guerrero MD [address] [place] [address] PCP - General 12/21/17 10/23/19 Cheryl Wallace MD PCP - General 10/24/19 11/29/19 Jose Henry MD [address] [address] PCP - General 11/30/19 12/01/19 Cheryl Wallace MD PCP - General 12/02/19 04/28/20 Rhonda Warren, [address] [facility] [address] [place] [address] PCP - General 04/29/20 10/29/20 Allie Drake PA [address] [facility] [address] [address] PCP - General Family Medicine 10/30/20 11/11/20 Ysabel Langston DO [address] [facility] [place] [address] PCP - General 11/12/20 02/09/21 No, Physician PCP - General 02/10/21 03/25/21 Allie Drake PA [address] [facility] [place] [address] PCP - General Family Medicine 03/26/21 07/01/21 Sandie Jordan, STRETCHER [employer] DRIER [address] [place] [address] PCP - General Family Practice 07/02/21 07/14/23 Unknown, Notinfile PCP - General 07/17/23 11/24/23 Love Diaz, BEATA [address] [place] [address] PCP - General Nurse Practitioner 11/25/23 Henry Brown MD [address] [facility] [place] [address] Rn Referral Cardiology 12/07/19 documented as of this encounter
--- OUTSIDE RECORDS SUMMARY | 2025-02-22 14:58 | XMS_ITS | Encounter Summary ---
Author Organization [facility] Address [address] [place] [address] Phone Care Team Providers Care Animal Sticker Name Role Phone Tamar Guerrero MD Primary Care Provider [phone] No, Physician Primary Care Provider Tamar Guerrero MD Primary Care Provider Tamar Guerrero MD Primary Care Provider [phone] No, Physician Primary Care Provider Tamar Guerrero MD Primary Care Provider No, Physician Primary Care Provider Tamar Guerrero MD Primary Care Provider No, Physician Primary Care Provider Tamar Guerrero MD Primary Care Provider [phone] No, Physician Primary Care Provider No, Physician Primary Care Provider Tamar Guerrero MD Primary Care Provider Tamar Guerrero MD Primary Care Provider No, Physician Primary Care Provider Tamar Guerrero MD Primary Care Provider No, Physician Primary Care Provider No, Physician Primary Care Provider Tamar Guerrero MD Primary Care Provider [phone] No, Physician Primary Care Provider No, Physician Primary Care Provider Tamar Guerrero MD Primary Care Provider [phone] No, Physician Primary Care Provider Tamar Guerrero MD Primary Care Provider + [phone] No, Physician Primary Care Provider Tamar Guerrero MD Primary Care Provider [phone] No, Physician Primary Care Provider [phone] Tamar Guerrero MD Primary Care Provider [phone] Tamar Guerrero MD Primary Care Provider [phone] No, Physician Primary Care Provider Tamar Guerrero MD Primary Care Provider [phone] No, Physician Primary Care Provider Tamar Guerrero MD Primary Care Provider [phone] Cheryl Wallace MD Primary Care Provider Jose Henry MD Primary Care Provider Cheryl Wallace MD Primary Care Provider Henry Brown MD Unavailable [phone] Rhonda Warren DO Primary Care Provider + [phone] Allie Drake Primary Care Provider Ysabel Langston DO Primary Care Provider No, Physician Primary Care Provider Allie Drake Primary Care Provider Sandie Jordan NP Primary Care Provider [phone] Unknown, Notinfile Primary Care Provider Unavail Love Rayo [employer] Primary Care Provider [phone] Encounter Details Date Type Department Care Team (Latest Contact Info) Description 09/08/2017 Orders Only [facility] CONVERSION Scanning, Provider Social History Tobacco Use Types Packs/Day Years Used Date Smoking Tobacco: Never Assessed Comments Unknown Sex and Gender Information Value Date Recorded Sex Assigned at Not on file 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 Gender Identity Female 11/11/2021 6:04 PM CDT Sexual Orientation Not on file documented as of this encounter Plan of Treatment Not on file documented as of this encounter Procedures Procedure Name Priority Date/Time Associated Diagnosis Comments OBSTETRIC/GYNECOLOGY ULTRASONOGRAPHY REPORT 09/29/2017 3:41 PM MANAGER UTILIZATION MANAGEMENT OBSTETRIC/GYNECOLOGY ULTRASONOGRAPHY REPORT 09/08/2017 3:52 PM MANAGER UTILIZATION MANAGEMENT documented in this encounter Results * OBSTETRIC/GYNECOLOGY ULTRASONOGRAPHY REPORT (09/29/2017 3:41 PM MANAGER UTILIZATION MANAGEMENT) Anatomical Region Laterality Modality Ultrasound us Provider Scanning IMG OB US PROCEDURES Final Res ult * OBSTETRIC/GYNECOLOGY ULTRASONOGRAPHY REPORT (09/08/2017 3:52 PM MANAGER UTILIZATION MANAGEMENT) Anatomical Region Laterality Modality Ultrasound us Provider [...] CDT COVID19 07/24/2020 07/24/2020 08/07/2020 3:07 AM MANAGER UTILIZATION MANAGEMENT COVID: Recovered Comment:Added based on recent COVID infection. 08/07/2020 08/07/2020 12/05/2020 3:05 AM C DT COVID19 Comment:jul 2020 12/01/2020 01/12/2022 01/22/2022 3:05 AM C DT Exposure, COVID-19 Comment:Added automatically based on COVID19 lab answers indicating exposure risk 09/01/2021 09/01/2021 09/11/2021 3:[address] COVID: Suspected 09/01/2021 09/01/2021 09/11/2021 3:05 AM MANAGER UTILIZATION MANAGEMENT COVID: Recovered Comment:Added based on recent COVID infection. 01/22/2022 01/23/2022 05/22/2022 3:05 AM C DT COVID: Suspected 03/12/2022 03/12/2022 03/12/2022 8:39 PM CDT documented as of this encounter Care Teams Animal Sticker Relationship Specialty Start Date End Date Tamar Guerrero MD [address] [place] [address] PCP - General 09/08/17 09/08/17 No, Physician PCP - General 09/09/17 09/13/17 Tamar Guerrero MD [address] [place] [address] PCP - General 09/14/17 09/14/17 Tamar Guerrero MD [address] [place] [address] PCP - General 09/15/17 09/15/17 No, Physician PCP - General 09/16/17 09/16/17 Tamar Guerrero MD [address] [place] [address] PCP - General 09/17/17 09/27/17 No, Physician PCP - General 09/28/17 09/28/17 Tamar Guerrero MD [address] [place] [address] PCP - General 09/29/17 09/29/17 No, Physician PCP - General 09/30/17 09/30/17 Tamar Guerrero MD [address] [place] [address] PCP - General 10/01/17 10/08/17 No, Physician PCP - General 10/09/17 10/11/17 No, Physician PCP - General 10/12/17 10/14/17 Tamar Guerrero MD [address] [place] [address] PCP - General 10/15/17 10/18/17 Tamar Guerrero MD [address] [place] [address] PCP - General 10/19/17 10/20/17 No, Physician PCP - General 10/21/17 10/21/17 Tamar Guerrero MD [address] [place] [address] PCP - General 10/22/17 10/22/17 No, Physician PCP - General 10/23/17 10/25/17 No, Physician PCP - General 10/26/17 10/28/17 Tamar Guerrero MD [address] [place] [address] PCP - General 10/29/17 11/01/17 No, Physician PCP - General 11/02/17 11/05/17 No, Physician PCP - General 11/06/17 11/07/17 Tamar Guerrero MD [address] [place] [address] PCP - General 11/08/17 11/09/17 No, Physician PCP - General 11/10/17 11/10/17 Tamar Guerrero MD [address] [place] [address] PCP - General 11/11/17 11/11/17 No, Physician PCP - General 11/12/17 11/15/17 Tamar Guerrero MD [address] [place] [address] PCP - General 11/16/17 11/17/17 No, Physician PCP - General 11/18/17 12/02/17 Tamar Guerrero MD [address] [place] [address] PCP - General 12/03/17 12/09/17 Tamar Guerrero MD [address] [facility] [address] [place] [address] PCP - General 12/10/17 12/10/17 No, Physician PCP - General 12/11/17 12/13/17 Tamar Guerrero MD [address] [facility] [address] [place] [address] PCP - General 12/14/17 12/18/17 No, Physician PCP - General 12/19/17 12/20/17 Tamar Guerrero MD [address] [address] PCP - General 12/21/17 10/23/19 Cheryl Wallace MD PCP - General 10/24/19 11/29/19 Jose Henry MD [address] [address] PCP - General 11/30/19 12/01/19 Cheryl Wallace MD PCP - General 12/02/19 04/28/20 Rhonda Warren DO [address] [facility] [place] [address] PCP - General 04/29/20 10/29/20 Allie Drake PA [address] [facility] [address] [address] PCP - General Family Medicine 10/30/20 11/11/20 Ysabel Langston DO [address] [facility] [address] [place] [address] PCP - General 11/12/20 02/09/21 No, Physician PCP - General 02/10/21 03/25/21 Allie Drake PA [address] [facility] [address] [address] PCP - General Family Medicine 03/26/21 07/01/21 Sandie Jordan NP [address] [place] [address] PCP - General Family Practice 07/02/21 07/14/23 Unknown, Notinfile PCP - General 07/17/23 11/24/23 Love Diaz, BEATA [facility] [address] PCP - General Nurse Practitioner 11/25/23 Henry Brown MD [address] [facility] [address] [place] [address] Sustainability Manager Cardiology 12/07/19 documented as of this encounter
== END 2025-02-22 15:55 | disposition home or self-care (01) ==
LOC: ANHED 14:54
PROVIDERS: Registered Nurse; Emergency Provider Emergency Medicine; PCP Nurse Practitioner Family
DX: B34.9 Viral infection, unspecified (principal); J06.9 Acute upper respiratory infection, unspecified; Z20.822 Contact with and (suspected) exposure to COVID-19; I10 Essential (primary) hypertension; J45.909 Unspecified asthma, uncomplicated; G47.30 Sleep apnea, unspecified
CPT/HCPCS: 87637; 87651; 99283

== ENCOUNTER 2025-06-22 20:36 | Emergency (ER) | payer SELFPAY ==
--- NOTE | 2025-06-22 20:42 | ECG_ITS ---
Test Date: 2025-06-22 21:18:50 Measurements Intervals [place] Rate: 72 P: 98 DC: 149 QRS: 4 QRSD: 93 T: 31 QT: 363 QTc: 399 Interpretive Statements SINUS RHYTHM NORMAL ELECTROCARDIOGRAM No previous ECG available for comparison Electronically Signed On 06-23-2025 07:55:47 STRONG NITRIC OPERATOR by Jp Jewell M.D.
[2025-06-22 21:14] VITALS: BP 147/89; PULSE 82; TEMP 37.1; O2SAT 100
[2025-06-22 21:48] VITALS: BP 157/92; PULSE 78; RESP 18; O2SAT 99
--- NOTE | 2025-06-22 21:54 | PC.NURSE ---
Pt left without being seen telling front desk agent on the way out. Pt ambulatory with steady gait.
--- OUTSIDE RECORDS SUMMARY | 2025-06-22 23:27 | XMS_ITS | Clinical Summary ---
Author Organization [facility] Address [address] [place] [address] Care Team Providers Care Magnetic Tape Composer Operator Name Role Phone Love Diaz NP Primary Care Provider [phone]- [phone] Allergies Active Allergy Reactions Criticality Noted Date Comments Hazelnut (Filbert) Itching 06/09/2025 Pineapple Itching 06/09/2025 Shellfish Allergy Angioedema 06/09/2025 Medications labetalol 200 MG tablet Take 400 mg by mouth 2 (two) times daily. Active lisinopril 20 MG tablet Take 20 mg by mouth 2 (two) times daily. 0 Active metoprolol succinate ER 50 MG 24 hr tablet Take 50 mg by mouth 2 (two) times daily. 0 Active pantoprazole EC 40 MG tablet Take 40 mg by mouth 2 (two) times daily. 0 Active guaiFENesin ER (MUCINEX) 600 MG 12 hr tablet Take 2 tablets (1,200 mg total) by mouth 2 (two) times daily. 28 tablet 2 Active albuterol sulfate HFA 108 (90 Base) MCG/ACT inhaler Inhale 2 puffs into the lungs every 6 (six) hours as needed for Wheezing. 8 g 2 Active predniSONE (DELTASONE) 20 MG tablet Take 1 tablet (20 mg total) by mouth daily for 7 days. 7 tablet 5 06/09/20 25 Discontinued ibuprofen (MOTRIN) 600 MG tablet Take 1 tablet (600 mg total) by mouth every 6 (six) hours as needed. 30 tablet 5 06/09/20 25 Discontinued cyclobenzaprin e (FLEXERIL) 5 MG tablet Take 1 tablet (5 mg total) by mouth 3 (three) times daily as needed. 30 tablet 5 06/09/20 25 Discontinued cyclobenzaprin e (FLEXERIL) 5 MG tablet Take 1 tablet (5 mg total) by mouth 3 (three) times daily as needed. 30 tablet 5 06/09/20 25 Discontinued ibuprofen (MOTRIN) 600 MG tablet Take 1 tablet (600 mg total) by mouth every 6 (six) hours as needed. 30 tablet 5 06/09/20 Discontinued predniSONE (DELTASONE) 20 MG tablet Take 1 tablet (20 mg total) by mouth daily for 7 days. 7 tablet 5 06/09/20 Discontinued cyclobenzaprin e (FLEXERIL) 5 MG tablet Take 1 tablet (5 mg total) by mouth 3 (three) times daily as needed. 30 tablet 5 06/19/20 ibuprofen (MOTRIN) 600 MG tablet Take 1 tablet (600 mg total) by mouth every 6 (six) hours as needed. 30 tablet 5 06/19/20 predniSONE (DELTASONE) 20 MG tablet Take 1 tablet (20 mg total) by mouth daily for 7 days. 7 tablet 5 06/16/20 Active Problems No known active problems Encounters Date Type Department Care Team Description 06/09/2025 1:03 PM FROG OR OYSTER FARMWORKER - 06/09/2025 2:51 PM FROG OR OYSTER FARMWORKER Emergency [facility] [place] [address] Kayla Jolley NP Back Pain Discharge Disposition: Home or Self Care (Routine Discharge) 06/09/2025 Travel 05/10/2025 2:09 PM CDT - 05/10/2025 3:31 PM CDT Emergency [facility] [place] [address] Jamie Loza, MARGOT Palpitations Discharge Disposition: Home or Self Care (Routine Discharge) 05/10/2025 Travel from Last 3 Months Social History Tobacco Use Types Packs/Day Years Used Date Smoking Tobacco: Never Passive Smoke Exposure: Never Smokeless Tobacco: Never Tobacco Cessation:Counseling Given: Not Answered Alcohol Use Standard Drinks/Week Comments Not Currently 0 (1 standard drink = 0.6 oz pur e alcohol) socially Comments No Sex and Gender Information Value Date Recorded Sex Assigned at Female 09/30/2024 2:20 PM FROG OR OYSTER FARMWORKER Legal Sex Female 11:16 PM CDT Gender Identity Not on file Sexual Orientation Not on file Last Filed Vital Signs Vital Sign Reading Time Taken Comments Blood Pressure 131/83 06/09/2025 2:27 PM FROG OR OYSTER FARMWORKER Pulse 71 06/09/2025 2:27 PM FROG OR OYSTER FARMWORKER Temperature 36.4 C (97.6 F) 06/09/2025 12:23 PM FROG OR OYSTER FARMWORKER Respiratory Rate 18 06/09/2025 2:27 PM FROG OR OYSTER FARMWORKER Oxygen Saturation 99% 06/09/2025 2:27 PM FROG OR OYSTER FARMWORKER Inhaled Oxygen Concentration - - Weight 124.7 kg (275 lb) 06/09/2025 12:23 PM FROG OR OYSTER FARMWORKER Height 165.1 cm (5' 5) 06/09/2025 12:23 PM FROG OR OYSTER FARMWORKER Body Mass Index 45.76 06/09/2025 12:23 PM FROG OR OYSTER FARMWORKER Plan of Treatment Health Maintenance Due Date Last Done Comments Annual Physical 1992 Hepatitis B Vaccines (1 of 3 - 19+ 3-dose series) 2008 Pneumococcal Vaccine: Pediatrics (0 to 5 Years) and At-Risk Patients (6 to 49 Years) (1 of 2 - PCV) 2008 HPV Vaccines (1 - 3-dose SCDM series) 2016 Cervical Cancer Screening Pap with HPV Testing (Age 30 to 64) Every 5 Years 2019 COVID-19 Vaccine ( - season) 2025 02/20/2021, 12/10/2020 Influenza Adult (#1) 2025 06/21/2024, 07/07/2023, 06/18/2022, Additional history exists Cervical Cancer Screening Pap Smear (Age 30 to 64) Every 3 Years 09/24/2025 09/24/2022 Cervical Cancer Screening with HPV 09/24/2025 DTaP, Tdap and Td Vaccines (5 - Td or Tdap) 09/08/2027 09/08/2017, 03/27/1995, 04/18/1994, Additional history exists Hepatitis C Completed 02/13/2024 Hepatitis A Vaccines Aged Out No long er eligible based on patient's age to complete this topic Meningococcal B Vaccine Aged Out No l onger eligible based on patient's age to complete this topic Meningococcal Vaccine Aged Out No ezra wade eligible based on patient's age to complete this topic RSV Immunizations Under 20 Months Aged Out No longer eligible based on patient's age to complete this topic Procedures Procedure Name Priority Date/Time Associated Diagnosis Comments XR CHEST PORTABLE STAT 05/10/2025 2:1 5 PM CDT TSH W/REFLEX STAT 05/10/2025 1:31 PM CDT HC MAGNESIUM STAT 05/10/2025 1:31 PM CDT HC TROPONIN QN STAT 05/10/2025 1:31 PM CDT HC COMPREHENSIVE METABOLIC PANEL STAT 05/10/2025 1:31 PM CDT HC CBC AUTO W/AUTO DIFF STAT 05/10/2025 1:31 PM CDT ECG 12-LEAD STAT 05/10/2025 1:20 PM CDT from Last 3 Months Results * XR CHEST PORTABLE (05/10/2025 2:15 PM CDT) Anatomical Region Laterality Modality Chest Radiographic Sofy ging 05/10/2025 2:18 PM CDT Impressions 05/10/2025 2:19 PM CDT IMPRESSION: Low inspiratory volumes. No acute findings. Referred By: Interpreted By: Erwin Jordan MD, 05/10/2025 2:18 PM Narrative 05/10/2025 2:19 PM CDT [facility] [address] [place], [place] [address] XR CHEST PORTABLE INDICATION: Chest pain TECHNIQUE: Portable AP view of the chest COMPARISON: Prior chest radiograph 09/30/2024. FINDINGS: Low inspiratory volumes. Cardiomediastinal silhouette is stable. No pulmonary vascular congestion. No focal pulmonary consolidation. No pleural effusion or pneumothorax is identified. Procedure Note Erwin Jordan MD - 05/10/2025 [facility] [address] [place], [place] [address] XR CHEST PORTABLE INDICATION: Chest pain TECHNIQUE: Portable AP view of the chest COMPARISON: Prior chest radiograph 09/30/2024. FINDINGS: Low inspiratory volumes. Cardiomediastinal silhouette is stable. Nopulmonary vascular congestion. No focal pulmonary consolidation. Nopleural effusion or pneumothorax is identified. IMPRESSION: Low inspiratory volumes. No acute findings. Referred By: Interpreted By: Erwin Jordan MD, 05/10/2025 2:18 PM Lissa Rodríguez APRN GENERAL IMAGING Final Result * TSH W/REFLEX (05/10/2025 1:31 PM CDT) [facility] TSH 2.640 0.358 - 3.74 uIU/ML 05/10/2025 2:18 PM CDT [facility] Comment: HIGH DOSES OF BIOTIN MAY INTERFERE WITH THIS TEST RESULT. CORRELATION TO CLINICAL HISTORY AND PRESENTATION RECOMMENDED. FREE T4 NOT INDICATED 05/10/2025 1:31 PM CDT us Lissa Rodríguez APRN LABORATORY Final Result [facility] [address] [place] [address], [place] [phone] * (ABNORMAL) COMPREHENSIVE METABOLIC PANEL (05/10/2025 1:31 PM CDT) [facility] GLUCOSE 89 70 - 99 MG/DL 05/10/2025 2:18 PM CDT [facility] BUN 12 7 - 18 MG/DL 05/10/2025 2:18 PM CDT [facility] CREATININE S/P/B 0.80 0.55 - 1.02 MG/DL 05/10/2025 2:18 PM CDT [facility] SODIUM S/P/B 138 136 - 145 MMOL/L 05/10/2025 2:18 PM CDT [facility] POTASSIUM S/P/B 4.0 3.5 - 5.1 MMOL/L 05/10/2025 2:18 PM CDT [facility] CHLORIDE S/P/B 108 97 - 115 MMOL/L 05/10/2025 2:18 PM CDT [facility] CO2 26.9 21 - 32 MMOL/L 05/10/2025 2:18 PM CDT [facility] CALCIUM S/P/B 9.3 8.5 - 10.1 MG/DL 05/10/2025 2:18 PM CDT [facility] BILIRUBIN TOTAL S/P/B 0.3 0.2 - 1.2 MG/DL 05/10/2025 2:18 PM CDT [facility] Comment: THIS ASSAY IS NOT RECOMMENDED FOR PATIENTS UNDERGOING TREATMENT WITH ELTROMBOPAG DUE TO THE POTENTIAL FOR FALSELY ELEVATED RESULTS. TOTAL PROTEIN S/P/B 8.1 6.4 - 8.2 G/DL 05/10/2025 2:18 PM CDT [facility] ALBUMIN S/P/B 3.4 3.4 - 5.0 G/DL 05/10/2025 2:18 PM CDT [facility] AST 21 15 - 37 U/L 05/10/2025 2:18 PM CDT [facility] ALT 34 14 - 55 U/L 05/10/2025 2:18 PM CDT [facility] ALKALINE PHOSPHATASE S/P/B 115 50 - 136 U/L 05/10/2025 2:18 PM CDT [facility] ANION GAP 3.1 2 - 10 MMOL/L 05/10/2025 2:18 PM CDT [facility] BUN CREATININE RATIO 15.0 6 - 26 05/10/2025 2:18 PM CDT [facility] A/G RATIO 0.7(L) 1.0 - 2.0 RATIO 05/10/2025 2:18 PM CDT [facility] GFR ESTIMATE >90 >90 ML/MIN/1.7 3 M2 05/10/2025 2:18 PM CDT [facility] Comment: NOTE: eGFR is not calculated for patients <18 years of age or gender unknown. This is an estimated GFR calculation using the new CKD EPI creatinine equation without race and so does not require a correction factor for race. This estimated GFR should not be used for calculating drug doses. 05/10/2025 1:31 PM CDT Lissa Rodríguez APRN LABORATORY Final Result [facility] [address] [place] [address], [place] [phone] * (ABNORMAL) CBC W/DIFF AUTOMATED (05/10/2025 1:31 PM CDT) WBC 8.87 4.5 - 11.0 x10'3/uL 05/10/2025 1:51 PM CDT [facility] RBC 4.85 4.20 - 5.40 x10'6/uL 05/10/2025 1:51 PM CDT [facility] HGB 10.9(L) 12.0 - 16.0 G/DL 05/10/2025 1:51 PM CDT [facility] HCT 35.0(L) 38.0 - 48.0 % 05/10/2025 1:51 PM CDT [facility] MCV 72.2(L) 81.0 - 99.0 FL 05/10/2025 1:51 PM CDT [facility] MCH 22.5(L) 27.0 - 31.0 PG 05/10/2025 1:51 PM CDT [facility] MCHC 31.1(L) 32.0 - 36.0 G/DL 05/10/2025 1:51 PM CDT [facility] RDW 17.4(H) 11.5 - 14.5 % 05/10/2025 1:51 PM CDT [facility] PLT 560(H) 130 - 400 x10'3/uL 05/10/2025 1:51 PM CDT [facility] MPV 9.2(L) 9.3 - 12.2 FL 05/10/2025 1:51 PM CDT [facility] DIFFERENTIAL TYPE AUTOMATED DIFFERENTIAL 05/10/2025 2:11 PM CDT [facility] NEUTROPHILS % 57.6 % 05/10/2025 2:11 PM CDT [facility] LYMPHOCYTES % 30.3 % 05/10/2025 2:11 PM CDT [facility] MONOCYTES % 10.1 % 05/10/2025 2:11 PM CDT [facility] EOSINOPHILS 1.2 % 05/10/2025 2:11 PM CDT [facility] BASOPHILS 0.6 % 05/10/2025 2:11 PM CDT [facility] IMMATURE GRANS % 0.2 % 05/10/20 2:11 PM CDT [facility] ABS. NEUTROPHILS 5.10 1.80 - 7.70 x10'3/uL 05/10/2025 2:11 PM CDT [facility] ABS. LYMPHOCYTES 2.69 1.00 - 4.80 x10'3/uL 05/10/2025 2:11 PM CDT [facility] ABS. MONOCYTES 0.90(H) 0.24 - 0.86 x10'3/uL 05/10/2025 2:11 PM CDT [facility] ABS. EOSINOPHILS 0.11 0.04 - 0.36 x10'3/uL 05/10/2025 2:11 PM CDT [facility] ABS. BASOPHILS 0.05 0.01 - 0.08 x10'3/uL 05/10/2025 2:11 PM CDT [facility] ABS. IMMATURE GRANULOCYTES 0.02 0.00 - 0.49 x10'3/uL 05/10/2025 2:11 PM CDT [facility] RBC MORPHOLOGY SLIDE REVIEWED 2024 2:11 PM CDT [facility] MICRO 1+ 05/10/2025 2:11 PM CDT [facility] OVALOCYTES 1+ 05/10/2025 2:11 PM CDT [facility] PLT EST. INCREASED 05/10/2025 2:11 PM CDT [facility] 05/10/2025 1:31 PM CDT Lissa Rodríguez APRN LABORATORY Final Result [facility] [address] [place] [address], [place] [phone] * TROPONIN, QUANT (05/10/2025 1:31 PM CDT) TROPONIN I HIGH SENSITIVITY <3 <54 ng/L 05/10/2025 2:18 PM CDT [facility] Comment: HIGH DOSES OF BIOTIN, TROPONIN-SPECIFIC AUTOANTIBODIES, AND ANTIBODY THERAPY CONTAINING HAMA MAY INTERFERE WITH THIS TEST RESULT. CORRELATION TO CLINICAL HISTORY AND PRESENTATION RECOMMENDED. 05/10/2025 1:31 PM CDT Lissa Rodríguez APRN LABORATORY Final Result Performing Organization Address City/[facility]/ZIP Co de Phone Number [facility] [address] [place] [address], * MAGNESIUM (05/10/2025 1:31 PM CDT) [facility] MAGNESIUM 2.2 1.8 - 2.4 MG/DL 05/10/2025 2:18 PM CDT [facility] 05/10/2025 1:31 PM CDT Lissa Rodríguez APRN LABORATORY Final Result Performing Organization Address City/[facility] Co de Phone Number [facility] [address] [place] [address], [place] [phone] * ECG 12 lead (05/10/2025 1:20 PM CDT) 05/10/2025 1:20 PM CDT Narrative [facility] ([facility]) RAD - 05/10/2025 5:55 PM CDT [address] Test Date: 2025-05-10 Pat Name: ETHEL JHA Department: 41 Room: Gender: Female 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 [address] Test Date: 2025-05-10 Pat Name: ETHEL JHA Department: 41 Room: Gender: Female Radar Air Traffic Controller: [id number] : 1990 Requested By: LISSA RODRÍGUEZ Order Number: [id number] Reading MD: Jp Hammonds Measurements Intervals [place] Rate: 107 P: 65 [place]: 141 QRS: 31 QRSD: 86 T: 29 QT: 312 QTc: 418 Interpretive Statements SINUS TACHYCARDIA NONSPECIFIC T-WAVE ABNORMALITY ABNORMAL RHYTHM ECG Compared to ECG 09/30/2024 15:28:57 T-wave abnormality now present Sinus rhythm no longer present ST (T wave) deviation no longer present Other ischemic changes, not STEMI Preliminary EKG Interpretation by Miko Engel NP Lissa Rodríguez FACING GRINDER ECG ORDERABLES Final Result [facility] RAD from Last 3 Months Insurance MEDICA Care Teams Magnetic Tape Composer Operator Relationship Specialty Start Date End Date Love Diaz NP [address] [facility] [address] [place] [address] PCP - General Nurse Practitioner Family 09/30/24
--- OUTSIDE RECORDS SUMMARY | 2025-06-22 23:27 | XMS_ITS | Encounter Summary ---
Author Organization [facility] Address [address] [place] [address] Phone Care Team Providers Care Medical Device Sales Consultant Name Role Phone Tamar Guerrero MD Primary Care Provider + [phone] Unknown, Notinfile Primary Care Provider Unavail able Tamar Guerrero MD Primary Care Provider + [phone] Unknown, Notinfile Primary Care Provider Unavail able Tamar Guerrero MD Primary Care Provider + [phone] Unknown, Notinfile Primary Care Provider Unavail able Tamar Guerrero MD Primary Care Provider + [phone] Unknown, Notinfile Primary Care Provider Unavail able Tamar Guerrero MD Primary Care Provider + [phone] Unknown, Notinfile Primary Care Provider Unavail able No, Physician Primary Care Provider [phone] Tamar Guerrero MD Primary Care Provider + [phone] No, Physician Primary Care Provider [phone] Tamar Guerrero MD Primary Care Provider + [phone] Tamar Guerrero MD Primary Care Provider + [phone] No, Physician Primary Care Provider [phone] Tamar Guerrero MD Primary Care Provider + [phone] No, Physician Primary Care Provider Tamar Guerrero [...] Rhonda Warren DO Primary Care Provider [phone] Allie Drake Primary Care Provider Ysabel Langston DO Primary Care Provider No, Physician Primary Care Provider Allie Drake Primary Care Provider Sandie Jordan NP Primary Care Provider Unknown, Notinfile Primary Care Provider Unavail Love Rayo CHRI[employer]IAN MINISTRIES PROFESSOR Primary Care Provider [phone]- [phone] Encounter Details Date Type Department Care Team (Latest Contact Info) Description 07/14/2017 Orders Only [facility] CONVERSION Scanning, Provider Social History Tobacco Use Types Packs/Day Years Used Date Smoking Tobacco: Never Assessed Comments Unknown Sex and Gender Information Value Date Recorded Sex Assigned at Not on file Legal Sex Female 8:01 AM FISHER MUSSEL Gender Identity Female 11/11/2021 6:04 PM CDT Sexual Orientation Not on file documented as of this encounter Plan of Treatment Not on file documented as of this encounter Procedures Procedure Name Priority Date/Time Associated Diagnosis Comments OBSTETRIC/GYNECOLOGY ULTRASONOGRAPHY REPORT 08/13/2017 3:57 PM FISHER MUSSEL OBSTETRIC/GYNECOLOGY ULTRASONOGRAPHY REPORT 07/14/2017 1:04 PM FISHER MUSSEL documented in this encounter Results * OBSTETRIC/GYNECOLOGY ULTRASONOGRAPHY REPORT (08/13/2017 3:57 PM FISHER MUSSEL) Anatomical Region Laterality Modality Ultrasound us Provider Scanning IMG OB US PROCEDURES Final Res ult * OBSTETRIC/GYNECOLOGY ULTRASONOGRAPHY REPORT (07/14/2017 1:04 PM FISHER MUSSEL) Anatomical Region Laterality Modality Ultrasound us Provider [...] CDT COVID19 07/24/2020 07/24/2020 08/07/2020 3:07 AM FISHER MUSSEL COVID: Recovered Comment:Added based on recent COVID infection. 08/07/2020 08/07/2020 12/05/2020 3:05 AM C DT COVID19 Comment:jul 2020 12/01/2020 01/12/2022 01/22/2022 3:05 AM C DT Exposure, COVID-19 Comment:Added automatically based on COVID19 lab answers indicating exposure risk 09/01/2021 09/01/2021 09/11/2021 3:[address] COVID: Suspected 09/01/2021 09/01/2021 09/11/2021 3:05 AM FISHER MUSSEL COVID: Recovered Comment:Added based on recent COVID infection. 01/22/2022 01/23/2022 05/22/2022 3:05 AM C DT COVID: Suspected 03/12/2022 03/12/2022 03/12/2022 8:39 PM CDT documented as of this encounter Care Teams Medical Device Sales Consultant Relationship Specialty Start Date End Date Tamar Guerrero MD [address] [place] [address] PCP - General 07/14/17 07/14/17 Unknown, Notinfile PCP - General 07/15/17 08/03/17 Tamar Guerrero MD [address] [place] [address] PCP - General 08/04/17 08/09/17 Unknown, Notinfile PCP - General 08/10/17 08/10/17 Tamar Guerrero MD [address] [place] [address] PCP - General 08/11/17 08/12/17 Unknown, Notinfile PCP - General 08/13/17 08/17/17 Tamar Guerrero MD [address] [place] [address] PCP - General 08/18/17 08/20/17 Unknown, Notinfile PCP - General 08/21/17 08/24/17 Tamar Guerrero MD [address] [place] [address] PCP - General 08/25/17 08/25/17 Unknown, Notinfile PCP - General 08/26/17 08/27/17 No, Physician PCP - General 08/28/17 09/07/17 Tamar Guerrero MD [address] [place] [address] PCP - General 09/08/17 09/08/17 No, Physician PCP - General 09/09/17 09/13/17 Tamar Guerrero MD [address] [place] [address] PCP - General 09/14/17 09/14/17 Tamar Guerrero MD [address] [place] [address] PCP - General 09/15/17 09/15/17 No, Physician PCP - General 09/16/17 09/16/17 Tamar Guererro MD [address] [place] [address] PCP - General 09/17/17 09/27/17 No, Physician PCP - General 09/28/17 09/28/17 Tamar Guerrero MD [address] [place] [address] PCP - General 09/29/17 09/29/17 No, Physician PCP - General 09/30/17 09/30/17 Tamar Guerrero MD [address] [place] [address] PCP - General 10/01/17 10/08/17 No, Physician PCP - General 10/09/17 10/11/17 No, Physician PCP - General 10/12/17 10/14/17 Tamar Guerrero MD [address] [place] [address] PCP - General 10/15/17 10/18/17 Tamar Guerrero MD [address] [place] [address] PCP - General 10/19/17 10/20/17 No, Physician PCP - General 10/21/17 10/21/17 Tamar Guerrero MD [address] [place] [address] PCP - General 10/22/17 10/22/17 No, Physician PCP - General 10/23/17 10/25/17 No, Physician PCP - General 10/26/17 10/28/17 Tamar Guerrero MD [address] [place] [address] PCP - General 10/29/17 11/01/17 No, Physician PCP - General 11/02/17 11/05/17 No, Physician PCP - General 11/06/17 11/07/17 Tamar Guerrero MD [address] [place] [address] PCP - General 11/08/17 11/09/17 No, Physician PCP - General 11/10/17 11/10/17 Tamar Guerrero MD [address] [place] [address] PCP - General 11/11/17 11/11/17 No, Physician PCP - General 11/12/17 11/15/17 Tamar Guerrero MD [address] [place] [address] PCP - General 11/16/17 11/17/17 No, Physician PCP - General 11/18/17 12/02/17 Tamar Guerrero MD [address] [address] PCP - General 12/03/17 12/09/17 Tamar Guerrero MD [address] [facility] [address] [place] [address] PCP - General 12/10/17 12/10/17 No, Physician PCP - General 12/11/17 12/13/17 Tamar Guerrero MD [address] [place] [address] PCP - General 12/14/17 12/18/17 No, Physician PCP - General 12/19/17 12/20/17 Tamar Guerrero MD [address] [place] [address] PCP - General 12/21/17 10/23/19 Cheryl Wallace MD PCP - General 10/24/19 11/29/19 Jose Henry MD [address] [address] PCP - General 11/30/19 12/01/19 Cheryl Wallace MD PCP - General 12/02/19 04/28/20 Rhonda Warren, [address] [facility] [address] [place] [address] PCP - General 04/29/20 10/29/20 Allie Drake PA [address] [facility] [address] [address] PCP - General Family Medicine 10/30/20 11/11/20 Ysabel Langston DO [address] [facility] [place] [address] PCP - General 11/12/20 02/09/21 No, Physician PCP - General 02/10/21 03/25/21 Allie Drake PA [address] [facility] [place] [address] PCP - General Family Medicine 03/26/21 07/01/21 Sandie Jordan, CHRI[employer]IAN MINISTRIES PROFESSOR [address] [place] [address] PCP - General Family Practice 07/02/21 07/14/23 Unknown, Notinfile PCP - General 07/17/23 11/24/23 Love Diaz, BEATA [address] [place] [address] PCP - General Nurse Practitioner 11/25/23 Henry Brown MD [address] [facility] [place] [address] Chief Technical Officer Cardiology 12/07/19 documented as of this encounter
--- OUTSIDE RECORDS SUMMARY | 2025-06-22 23:27 | XMS_ITS | Encounter Summary ---
Author Organization [facility] Address [address] [facility] [place] [address] Care Team Providers Care Cna Caregiver Name Role Phone Henry Suarez MD Unavailable [phone] Love Diaz SERVICE COORDINATOR ELDERLY FACILITY-ICE CREAM TRUCK DRIVER Unavailable [phone] Love Diaz SERVICE COORDINATOR ELDERLY FACILITY-ICE CREAM TRUCK DRIVER Primary Care Provider + Aiyana Esposito Unavailable [phone] Anabell Thompson MD Primary Care Provider Reason for Visit * Reason Onset Date Comments Late Cancel 01/02/2025 Encounter Details Date Type Department Care Team (Late st Contact Info) Description 01/02/[address] [facility] Medical [facility] - Family Medicine [address] [facility], [address] [address] Love Diaz, SERVICE COORDINATOR ELDERLY FACILITY-ICE CREAM TRUCK DRIVER [address] [facility] [address] [place] [address] Late Cancel Social History Tobacco Use [...] Recorded Patient Health Questionnaire-2 Score 1 08/30/2024 [facility] [place] of Occupat ional Health - Occupational Stress [...] place to sleep or slept in a mcc (including now)? No 04/13/2023 Comments No Sex and Gender Information Value Date Recorded Sex Assigned at Not on file Legal Sex Female 5:36 AM SEQUINS STRINGER Gender Identity Not on file Sexual Orientation Not on file documented as of this encounter Functional Status * Is person deaf or have serious hearing difficulty? Answer Date of Assessment Author No 04/13/2023 2:30 PM Doug Crane RN * Is person blind or have serious difficulty seeing? Answer Date of Assessment Author No 04/13/2023 2:30 PM LEXIIT Doug Bell, RN * Does person have serious difficulty walking/climbing stairs? Answer Date of Assessment Author No 04/13/2023 2:30 PM Doug Crane RN * Does person have difficulty dressing/bathing? Answer Date of Assessment Author No 04/13/2023 2:30 PM CDT Doug Bell, RN * Does person have difficulty doing [...] Care Team (Late st Contact Info) Description 08/23/2025 3:00 PM SEQUINS STRINGER Office Visit [facility] Medical [facility] - Pulmonology [address] [place] [address] Mario Decker MD [address] [place] [address] documented as of this encounter Visit Diagnoses Not on filedocumented in this encounter Care Teams Cna Caregiver Relationship Specialty Start Date End Date Love Diaz APRN-ICE CREAM TRUCK DRIVER [address] [place] [address] PCP - Attributed-[facility] EHP STL 08/03/23 Love Diaz APRN-ICE CREAM TRUCK DRIVER [address] [place] [address] PCP - General Nurse Practitioner 02/17/24 05/09/25 Anabell Thompson MD [address] [place] [address] PCP - General Internal Medicine 05/10/25 [place] [address] [address] Trade Show Coordinator Cardiovascular Disease 12/01/22 Aiyana Esposito Care Coordination Specialist Care Management 05/04/25 05/04/25 documented as of this encounter
--- OUTSIDE RECORDS SUMMARY | 2025-06-22 23:27 | XMS_ITS | Clinical Summary ---
Author Organization [facility] Care Team Providers Care Organic Search Lead Name Role Phone Unavailable Primary Care Provider [...] 19+ 3-dose series) 2008 Pap Smear 2010 Human Papillomavirus (HPV) Immunization (1 - 3-dose SCDM series) 2016 Cervical Cancer Screening (CCS) 2019 HPV/Cotest 2019 Influenza Immunization (#1) 2025 SARS-COV-2 Immunization ( season) 2025 Respiratory Syncytial Virus (RSV) Immunization (Adult) (1 [...]
--- OUTSIDE RECORDS SUMMARY | 2025-06-22 23:27 | XMS_ITS | Encounter Summary ---
Author Organization [facility] Address [address] [facility] [place] [address] Care Team Providers Care Senior Manufacturing Engineer Name Role Phone Henry Suarez MD Unavailable Anabell Thompson MD Primary Care Provider Love Diaz RETURN TO SERVICE INSPECTOR-DATA WAREHOUSING SPECIALIST Primary Care Provider + Love Diaz RETURN TO SERVICE INSPECTOR-DATA WAREHOUSING SPECIALIST Unavailable [phone] Deyanira De La Fuente RN Unavailable [phone] Anabell Thompson MD Primary Care Provider Love Diaz RETURN TO SERVICE INSPECTOR-DATA WAREHOUSING SPECIALIST Primary Care Provider + Aiyana Esposito Unavailable [phone] Aiyana Esposito Unavailable [phone] Anabell Thompson MD Primary Care Provider Reason for Visit * Reason Onset Date Comments Concerns 08/31/2023 Establish Care 08/31/2023 Encounter Details Date Type Department Care Team (Late st Contact Info) Description 08/31/2023 Telephone [facility] - GRINDING WHEEL FACER [address] [facility] [address] [place] [address] Izabella Inman MD [address] [place] [address] Concerns; Establish Care Social History [...] Recorded Patient Health Questionnaire-2 Score 0 07/29/2023 [facility] [place] of Occupat ional Health - Occupational Stress [...] place to sleep or slept in a snf (including now)? No 04/13/2023 Comments No Sex and Gender Information Value Date Recorded Sex Assigned at Not on file Legal Sex Female 5:36 AM BIOLOGICAL PHOTOGRAPHER Gender Identity Not on file Sexual Orientation [...] Author No 04/13/2023 2:30 PM LEXIIT Doug Bell RN documented as of this encounter Mental Status * Does person have difficulty concentrating/remembering/making decisions? Answer Entry Date Author No 04/13/2023 2:30 PM Doug Crane RN documented in this encounter Miscellaneous Notes * Telephone Encounter - Aracely Titus RN - 08/31/2023 2:06 PM BIOLOGICAL PHOTOGRAPHER Pt new pt office. Pt saw Fanny applicator sprayer in July who recommended urogyn for vaginal cyst. Pt currently scheduled with PX. RN doesn't see anything sooner. RN called pt. No answer, left VM needing to clarify who pt needed to see. If pt returns call, please clarify if she needs urogyn and schedule. If she needs applicator sprayer can look at first available with other providers OGICAL PHOTOGRAPHER * Telephone Encounter - Yovana Rodriguez - 08/31/2023 1:25 PM CST Pt took next available with Dr. Inman for a cyst. She states it is stating to give her more issues and increased in size. Gave her 2.13.24 and placed on waiting list. Wants to know if it is at all possible for her to be seen sooner. Please advise. OGICAL PHOTOGRAPHER documented in this encounter Plan of Treatment Upcoming Encounters Date Type Department Care Team (Late st Contact Info) Description 08/23/2025 3:00 PM BIOLOGICAL PHOTOGRAPHER Office Visit [facility] - Pulmonology [address] [place] [address] Mario Decker MD [address] [place] [address] documented as of this encounter Visit Diagnoses Not on filedocumented in this encounter Additional Health Concerns Infection Onset Date Last Indicated Resolved Time COVID-19 Under Investigation 11/10/2023 11/10/2023 11/10/2023 7:14 PM CDT Influenza A or B 11/10/2023 11/10/2023 11/17/2023 4:33 AM CDT COVID-19 Under Investigation 09/06/2024 09/06/2024 09/06/2024 4:15 PM BIOLOGICAL PHOTOGRAPHER documented as of this encounter Care Teams Senior Manufacturing Engineer Relationship Specialty Start Date End Date Anabell Thompson MD [address] [place], [place] [address] PCP - General Internal Medicine 07/07/23 09/14/23 Love Diaz APRN-DATA WAREHOUSING SPECIALIST [address] [place] [address] PCP - General Nurse Practitioner 09/15/23 02/15/24 Love Diaz, RETURN TO SERVICE INSPECTOR-DATA WAREHOUSING SPECIALIST [address] [place] [address] PCP - Attributed-[facility] EHP STL 08/03/23 Anabell Thompson MD [address] [place], [place] [address] PCP - General Internal Medicine 02/16/24 02/16/24 Love Diaz, RETURN TO SERVICE INSPECTOR-DATA WAREHOUSING SPECIALIST [address] [phone] PCP - General Nurse Practitioner 02/17/24 05/09/25 Anabell Thompson MD [address] [place] [address] PCP - General Internal Medicine 05/10/25 [place] [address] [facility] [address] [place] [phone] Metal Moulder'S Assistant Cardiovascular Disease 12/01/22 Deyanira De La Fuente RN Manager Of BusinessExhibit Electrician 01/05/24 02/08/24 Aiyana Esposito Care Coordination Specialist Care Management 11/15/24 12/30/24 Aiyana Esposito Care Coordination Specialist Care Management 05/04/25 05/04/25 documented as of this encounter
--- OUTSIDE RECORDS SUMMARY | 2025-06-22 23:27 | XMS_ITS | Encounter Summary ---
Author Organization [facility] Address [address] [facility] [place] [address] Care Team Providers Care Grounds Keeper Name Role Phone Henry Suarez MD Unavailable Love Diaz ROUTE SUPERVISOR-WINDOW SHADE RING COVERER Primary Care Provider + Love Diaz ROUTE SUPERVISOR-WINDOW SHADE RING COVERER Unavailable [phone] Deyanira De La Fuente RN Unavailable [phone] Anabell Thompson MD Primary Care Provider Love Diaz ROUTE SUPERVISOR-WINDOW SHADE RING COVERER Primary Care Provider + Aiyana Esposito Unavailable [phone] Aiyana Esposito Unavailable [phone] Anabell Thompson MD Primary Care Provider Reason for Visit * Reason Onset Date Comments Surgery Scheduling 11/13/2023 Pt has Flu, w ould like a Nurse call to discuss upcoming Surgery on Thursday 4.24, Encounter Details Date Type Department Care Team (Late st Contact Info) Description 11/13/2023 Telephone [facility] - JEWEL GAUGER [address] [place] [address] Izabella Inman MD [address] [place] [address] Surgery Scheduling (Pt has Flu, would like a Nurse call to discuss upcoming Surgery on Thursday 4, ) Social History Tobacco Use Types Packs/Day [...] Recorded Patient Health Questionnaire-2 Score 0 11/10/2023 [facility] [place] of Occupat ional Health - Occupational Stress [...] place to sleep or slept in a penitentiary (including now)? No 04/13/2023 Comments No Sex and Gender Information Value Date Recorded Sex Assigned at Not on file Legal Sex Female 5:36 AM EXECUTIVE ASSISTANT TO GENERAL COUNSEL Gender Identity Not on file Sexual Orientation [...] st Contact Info) Description 08/23/2025 3:00 PM EXECUTIVE ASSISTANT TO GENERAL COUNSEL Office Visit [facility] - Pulmonology [address] [place] [address] [address] [place] [address] Mario Decker MD [address] [place] [address] documented as of this encounter Visit Diagnoses Not on filedocumented in this encounter Additional Health Concerns Infection Onset Date Last Indicated Resolved Time Influenza A or B 11/10/2023 11/10/2023 11/17/2023 4:33 AM CDT COVID-19 Under Investigation 09/06/2024 09/06/2024 09/06/2024 4:15 PM EXECUTIVE ASSISTANT TO GENERAL COUNSEL documented as of this encounter Care Teams Grounds Keeper Relationship Specialty Start Date End Date Love Diaz APRN-WINDOW SHADE RING COVERER [address] [place] [phone] PCP - General Nurse Practitioner 09/15/23 02/15/24 Love Diaz ROUTE SUPERVISOR-WINDOW SHADE RING COVERER [address] [place] [address] PCP - Attributed-[facility] EHP STL 08/03/23 Anabell Thompson MD [address] [place], [place] [id number] PCP - General Internal Medicine 02/16/24 02/16/24 Love Diaz ROUTE SUPERVISOR-WINDOW SHADE RING COVERER [address] [place] [address] PCP - General Nurse Practitioner 02/17/24 05/09/25 Anabell Thompson MD [address] [place], [place] [address] PCP - General Internal Medicine 05/10/25 [place] [address] [address] Offender Employment Specialist Cardiovascular Disease 12/01/22 Deyanira De La Fuente RN Eating Disorder SpecialistSystems Checkout Mechanic 01/05/24 02/08/24 Aiyana Esposito Care Coordination Specialist Care Management 11/15/24 12/30/24 Aiyana Esposito Care Coordination Specialist Care Management 05/04/25 05/04/25 documented as of this encounter
--- OUTSIDE RECORDS SUMMARY | 2025-06-22 23:27 | XMS_ITS | Encounter Summary ---
Author Organization [facility] Address [address] [facility] [place] [address] Care Team Providers Care Validation Analyst Name Role Phone Henry Suarez MD Unavailable [phone] Love Diaz TREE TRIMMING SUPERVISOR-BATTER DEPOSITOR Unavailable [phone] Anabell Thompson MD Primary Care Provider Encounter Details Date Type Department Care Team (Late st Contact Info) Description 05/15/2025 Results Follow-Up [facility] - Family Medicine [address] [address] Anabell Thompson MD [address] [place] [address] Social History Tobacco Use Types Packs/Day Years [...] Answer Date Recorded Patient Health Questionnaire-2 Score 2 05/09/2025 [facility] [place] of Occupat ional Health - Occupational Stress [...] on file Legal Sex Female 5:36 AM MANAGER MATH Gender Identity Not on file Sexual Orientation Not on file documented as of this encounter Functional Status * Is person deaf or have serious hearing difficulty? Answer Date of Assessment Author No 04/13/2023 2:30 PM Doug Crane, GARCIA * Is person blind or have serious difficulty seeing? Answer Date of Assessment Author No 04/13/2023 2:30 PM Doug Crane, RN * Does person have serious difficulty walking/climbing stairs? Answer Date of Assessment Author No 04/13/2023 2:30 PM Doug Crane, RN * Does person have difficulty dressing/bathing? [...] Doug Bell RN documented in this encounter Progress Notes * Anabell Thompson MD - 05/15/2025 6:46 PM CDT Notify patient. Please review laboratory tests in MyChart. Mild anemia hemoglobin 10.6(lower limit of normal 11.1),decreased ferritin-9 suggesting iron-deficiency, we will obtain iron studies(order in epic sent electronically to [facility]), vitamin B12 level -1628 elevated , if you take vitamin B12 daily, decrease to every other day, hemoglobin A1c 5.9 in the range of prediabetes, thyroid function tests normal, fasting lipid profile normal, I will discuss results on follow-up visit documented in this encounter Plan of Treatment Upcoming Encounters Date Type Department Care Team (Late st Contact Info) Description 08/23/2025 3:00 PM MANAGER MATH Office Visit [facility] Medical [facility] - Pulmonology [address] [place] [address] Mario Decker MD [address] [place] [address] Scheduled Orders Name Type Priority Associated Diagnoses Orde r Schedule IRON + TRANSFERRIN PANEL Lab Routine Anemia, unspecified type Ordered: 05/15/2025 documented as of this encounter Visit Diagnoses Diagnosis Anemia, unspecified type- Primary documented in this encounter Care Teams Validation Analyst Relationship Specialty Start Date End Date Love Diaz, TREE TRIMMING SUPERVISOR-BATTER DEPOSITOR [address] [facility] [address] [place] [address] PCP - Attributed-[facility] EHP STL 08/03/23 Anabell Thompson MD [address] [place] [address] PCP - General Internal Medicine 05/10/25 [place] [address] [phone] Travel Specialist Cardiovascular Disease 12/01/22 documented as of this encounter
--- OUTSIDE RECORDS SUMMARY | 2025-06-22 23:27 | XMS_ITS | Encounter Summary ---
Author Organization [facility] Address [address] [place] [address] Phone Care Team Providers Care Academic Guidance Specialist Name Role Phone Tamar Guerrero MD Primary Care Provider [phone] No, Physician Primary Care Provider Tamar Guerrero MD Primary Care Provider Tamar Guerrero MD Primary Care Provider [phone] No, Physician Primary Care Provider Tamar Guerrero MD Primary Care Provider No, Physician Primary Care Provider Tamar Guerrero MD Primary Care Provider No, Physician Primary Care Provider Tamar Guerrero MD Primary Care Provider [phone] No, Physician Primary Care Provider No, Physician Primary Care Provider Tamar Guerrero MD Primary Care Provider Tamar Guerrero MD Primary Care Provider No, Physician Primary Care Provider Tamar Guerrero MD Primary Care Provider No, Physician Primary Care Provider No, Physician Primary Care Provider Tamar Guerrero MD Primary Care Provider [phone] No, Physician Primary Care Provider No, Physician Primary Care Provider Tamar Guerrero MD Primary Care Provider [phone] No, Physician Primary Care Provider Tamar Guerrero MD Primary Care Provider [phone] No, Physician Primary Care Provider Tamar Guerrero MD Primary Care Provider [phone] No, Physician Primary Care Provider [phone] Tamar Guerrero MD Primary Care Provider [phone] Tamar Guerrero MD Primary Care Provider [phone] No, Physician Primary Care Provider Tamar Guerrero MD Primary Care Provider [phone] No, Physician Primary Care Provider Tamar Guerrero MD Primary Care Provider [phone] Cheryl Wallace MD Primary Care Provider Jose Henry MD Primary Care Provider Cheryl Wallace MD Primary Care Provider Henry Brown MD Unavailable [phone] Rhonda Warren DO Primary Care Provider [phone] Allie Drake Primary Care Provider Ysabel [place] DO Primary Care Provider No, Physician Primary Care Provider Allie Drake Primary Care Provider Sandie Jordan NP Primary Care Provider [phone] Unknown, Notinfile Primary Care Provider Unavail Love Rayo ELECTRIC DETECTOR OPERATOR Primary Care Provider [phone] Encounter Details Date Type Department Care Team (Latest Contact Info) Description 09/08/2017 Orders Only [facility] CONVERSION Scanning, Provider Social History Tobacco Use Types Packs/Day Years Used Date Smoking Tobacco: Never Assessed Comments Unknown Sex and Gender Information Value Date Recorded Sex Assigned at Not on file Legal Sex Female 8:01 AM TACK COVERER Gender Identity Female 11/11/2021 6:04 PM CDT Sexual Orientation Not on file documented as of this encounter Plan of Treatment Not on file documented as of this encounter Procedures Procedure Name Priority Date/Time Associated Diagnosis Comments OBSTETRIC/GYNECOLOGY ULTRASONOGRAPHY REPORT 09/29/2017 3:41 PM TACK COVERER OBSTETRIC/GYNECOLOGY ULTRASONOGRAPHY REPORT 09/08/2017 3:52 PM TACK COVERER documented in this encounter Results * OBSTETRIC/GYNECOLOGY ULTRASONOGRAPHY REPORT (09/29/2017 3:41 PM TACK COVERER) Anatomical Region Laterality Modality Ultrasound us Provider Scanning IMG OB US PROCEDURES Final Res ult * OBSTETRIC/GYNECOLOGY ULTRASONOGRAPHY REPORT (09/08/2017 3:52 PM TACK COVERER) Anatomical Region Laterality Modality Ultrasound us Provider [...] CDT COVID19 07/24/2020 07/24/2020 08/07/2020 3:07 AM TACK COVERER COVID: Recovered Comment:Added based on recent COVID infection. 08/07/2020 08/07/2020 12/05/2020 3:05 AM C DT COVID19 Comment:jul 2020 12/01/2020 01/12/2022 01/22/2022 3:05 AM C DT Exposure, COVID-19 Comment:Added automatically based on COVID19 lab answers indicating exposure risk 09/01/2021 09/01/2021 09/11/2021 3:[address] COVID: Suspected 09/01/2021 09/01/2021 09/11/2021 3:05 AM TACK COVERER COVID: Recovered Comment:Added based on recent COVID infection. 01/22/2022 01/23/2022 05/22/2022 3:05 AM C DT COVID: Suspected 03/12/2022 03/12/2022 03/12/2022 8:39 PM CDT documented as of this encounter Care Teams Academic Guidance Specialist Relationship Specialty Start Date End Date Tamar Guerrero MD [address] [place] [address] PCP - General 09/08/17 09/08/17 No, Physician PCP - General 09/09/17 09/13/17 Tamar Guerrero MD [address] [place] [address] PCP - General 09/14/17 09/14/17 Tamar Guerrero MD [address] [place] [address] PCP - General 09/15/17 09/15/17 No, Physician PCP - General 09/16/17 09/16/17 Tamar Guerrero MD [address] [place] [address] PCP - General 09/17/17 09/27/17 No, Physician PCP - General 09/28/17 09/28/17 Tamar Guerrero MD [address] [place] [address] PCP - General 09/29/17 09/29/17 No, Physician PCP - General 09/30/17 09/30/17 Tamar Guerrero MD [address] [place] [address] PCP - General 10/01/17 10/08/17 No, Physician PCP - General 10/09/17 10/11/17 No, Physician PCP - General 10/12/17 10/14/17 Tamar Guerrero MD [address] [place] [address] PCP - General 10/15/17 10/18/17 Tamar Guerrero MD [address] [place] [address] PCP - General 10/19/17 10/20/17 No, Physician PCP - General 10/21/17 10/21/17 Tamar Guerrero MD [address] [place] [address] PCP - General 10/22/17 10/22/17 No, Physician PCP - General 10/23/17 10/25/17 No, Physician PCP - General 10/26/17 10/28/17 Tamar Guerrero MD [address] [place] [address] PCP - General 10/29/17 11/01/17 No, Physician PCP - General 11/02/17 11/05/17 No, Physician PCP - General 11/06/17 11/07/17 Tamar Guerrero MD [address] [place] [address] PCP - General 11/08/17 11/09/17 No, Physician PCP - General 11/10/17 11/10/17 Tamar Guerrero MD [address] [place] [address] PCP - General 11/11/17 11/11/17 No, Physician PCP - General 11/12/17 11/15/17 Tamar Guerrero MD [address] [place] [address] PCP - General 11/16/17 11/17/17 No, Physician PCP - General 11/18/17 12/02/17 Tamar Guerrero MD [address] [place] [address] PCP - General 12/03/17 12/09/17 Tamar Guerrero MD [address] [facility] [address] [place] [address] PCP - General 12/10/17 12/10/17 No, Physician PCP - General 12/11/17 12/13/17 Tamar Guerrero MD [address] [facility] [address] [place] [address] PCP - General 12/14/17 12/18/17 No, Physician PCP - General 12/19/17 12/20/17 Tamar Guerrero MD [address] [address] PCP - General 12/21/17 10/23/19 Cheryl Wallace MD PCP - General 10/24/19 11/29/19 Jose Henry MD [address] [address] PCP - General 11/30/19 12/01/19 Cheryl Wallace MD PCP - General 12/02/19 04/28/20 Rhonda Warren DO [address] [facility] [place] [address] PCP - General 04/29/20 10/29/20 Allie Drake PA [address] [address] PCP - General Family Medicine 10/30/20 11/11/20 Ysabel Langston DO [address] [facility] [place] [address] PCP - General 11/12/20 02/09/21 No, Physician PCP - General 02/10/21 03/25/21 Allie Drake PA [address] [facility] [address] PCP - General Family Medicine 03/26/21 07/01/21 Sandie Jordan NP [address] [place] [address] PCP - General Family Practice 07/02/21 07/14/23 Unknown, Notinfile PCP - General 07/17/23 11/24/23 Love Diaz, BEATA [facility] [address] [address] PCP - General Nurse Practitioner 11/25/23 Henry Brown MD [address] [facility] [place] [address] Promotions Director Cardiology 12/07/19 documented as of this encounter
--- OUTSIDE RECORDS SUMMARY | 2025-06-22 23:27 | XMS_ITS | Encounter Summary ---
Author Organization [facility] Address [address] [place] [address] Phone Care Team Providers Care Engineering And Operations Director Name Role Phone Tamar Guerrero MD Primary Care Provider +- [phone] Tamar Guerrero MD Primary Care Provider + [phone] No, Physician Primary Care Provider [phone] Tamar Guerrero MD Primary Care Provider +- [phone] No, Physician Primary Care Provider No, Physician Primary Care Provider Tamar Guerrero MD Primary Care Provider +- [phone] No, Physician Primary Care Provider No, Physician Primary Care Provider Tamar Guerrero MD Primary Care Provider + [phone] No, Physician Primary Care Provider Tamar Guerrero MD Primary Care Provider +- [phone] No, Physician Primary Care Provider Tamar Guerrero MD Primary Care Provider + [phone] No, Physician Primary Care Provider [phone] Tamar Guerrero MD Primary Care Provider + [phone] Tamar Guerrero MD Primary Care Provider [phone]- [phone] No, Physician Primary Care Provider Tamar Guerrero MD Primary Care Provider [phone]- [phone] No, Physician Primary Care Provider Tamar Guerrero MD Primary Care Provider Cheryl Wallace MD Primary Care Provider Jose Henry MD Primary Care Provider Cheryl Wallace MD Primary Care Provider Henry Brown MD Unavailable Rhonda Warren DO Primary Care Provider [phone]- [phone] Allie Drake Primary Care Provider Ysabel Langston DO Primary Care Provider No, Physician Primary Care Provider Allie Drake Primary Care Provider Sandie Jordan SHIRT CREASER Primary Care Provider Unknown, Notinfile Primary Care Provider Unavail Love Rayo SHIRT CREASER Primary Care Provider [phone]- [phone] Encounter Details Date Type Department Care Team (Latest Contact Info) Description 10/15/2017 Orders Only [facility] CONVERSION Scanning, Provider Social History Tobacco Use Types Packs/Day Years Used Date Smoking Tobacco: Never Comments Unknown Sex and Gender Information Value Date Recorded Sex Assigned at Not on file Legal Sex Female 8:01 AM DRUG ROOM CLERK Gender Identity Female 11/11/2021 6:04 PM CDT [...] CDT COVID19 07/24/2020 07/24/2020 08/07/2020 3:07 AM DRUG ROOM CLERK COVID: Recovered Comment:Added based on recent COVID infection. 08/07/2020 08/07/2020 12/05/2020 3:05 AM C DT COVID19 Comment:jul 2020 12/01/2020 01/12/2022 01/22/2022 3:05 AM C DT Exposure, COVID-19 Comment:Added automatically based on COVID19 lab answers indicating exposure risk 09/01/2021 09/01/2021 09/11/2021 3:[address] COVID: Suspected 09/01/2021 09/01/2021 09/11/2021 3:05 AM DRUG ROOM CLERK COVID: Recovered Comment:Added based on recent COVID infection. 01/22/2022 01/23/2022 05/22/2022 3:05 AM C DT COVID: Suspected 03/12/2022 03/12/2022 03/12/2022 8:39 PM CDT documented as of this encounter Care Teams Engineering And Operations Director Relationship Specialty Start Date End Date Tamar Guerrero MD [address] [place] [address] PCP - General 10/15/17 10/18/17 Tamar Guerrero MD [address] [place] [address] PCP - General 10/19/17 10/20/17 No, Physician PCP - General 10/21/17 10/21/17 Tamar Guerrero MD [address] [address] PCP - General 10/22/17 10/22/17 No, Physician PCP - General 10/23/17 10/25/17 No, Physician PCP - General 10/26/17 10/28/17 Tamar Guerrero MD [address] [address] PCP - General 10/29/17 11/01/17 No, Physician PCP - General 11/02/17 11/05/17 No, Physician PCP - General 11/06/17 11/07/17 Tamar Guerrero MD [address] [place] [id number] PCP - General 11/08/17 11/09/17 No, Physician PCP - General 11/10/17 11/10/17 Tamar Guerrero MD [address] [place] [address] PCP - General 11/11/17 11/11/17 No, Physician PCP - General 11/12/17 11/15/17 Tamar Guerrero MD [address] [place] [address] PCP - General 11/16/17 11/17/17 No, Physician PCP - General 11/18/17 12/02/17 Tamar Guerrero MD [address] [place] [address] PCP - General 12/03/17 12/09/17 Tamar Guerrero MD [address] [place] [address] PCP - General 12/10/17 12/10/17 No, Physician PCP - General 12/11/17 12/13/17 Tamar Guerrero MD [address] [place] [address] PCP - General 12/14/17 12/18/17 No, Physician PCP - General 12/19/17 12/20/17 Tamar Guerrero MD [address] [place] [address] PCP - General 12/21/17 10/23/19 Cheryl Wallace MD PCP - General 10/24/19 11/29/19 Jose Henry MD [address] [facility] [address] PCP - General 11/30/19 12/01/19 Cheryl Wallace MD PCP - General 12/02/19 04/28/20 Rhonda Warren DO [address] [facility] [place] [address] PCP - General 04/29/20 10/29/20 Allie Drake PA [address] [facility] [address] [address] PCP - General Family Medicine 10/30/20 11/11/20 Ysabel Langston DO [address] [facility] [address] [address] PCP - General 11/12/20 02/09/21 No, Physician PCP - General 02/10/21 03/25/21 Allie Drake, NICOLE [address] [facility] [address] [address] PCP - General Family Medicine 03/26/21 07/01/21 Sandie Jordan, SHIRT CREASER [address] [place] [address] PCP - General Family Practice 07/02/21 07/14/23 Unknown, Notinfile PCP - General 07/17/23 11/24/23 Love Diaz NP [facility] [address] PCP - General Nurse Practitioner 11/25/23 Henry Brown MD [address] [facility] [address] [address] Nuclear Technologist Cardiology 12/07/19 documented as of this encounter
--- OUTSIDE RECORDS SUMMARY | 2025-06-22 23:27 | XMS_ITS | Clinical Summary ---
Author Organization [facility] [employer] Address [address] [place] [address] Care Team Providers Care Byproducts Operator Name Role Phone Henry Suarez MD Unavailable [phone] Love Diaz CARD SERVICES SPECIALIST-RN X RAY Unavailable [phone] Anabell Thompson MD Primary Care Provider Source Comments [facility],non-owned Affiliates and Associated Physician Practices is amultiple site organization consisting of ambulatory clinics and hospital sitesin [place], [place], [place] and [place]. This disclosure is being madepursuant to the Care Everywhere program and may not contain all information available regarding this patient. Last updated 18.[facility] Allergies Active Allergy Reactions Criticality Noted Date Comments Grass Pollen(K-O-R-T-Swt Noel) Rhinitis Low 10/08/2011 Other reaction(s): Sneezing Nsaids Nausea and/or Vomiting Low 01/21/2012 Pineapple Itching,Swelling Medium 01/01/2022 [...] - Inhalation 18 g 1 4 Active pantoprazole EC (Protonix) 40 MG tablet TAKE 1 TABLET BY MOUTH TWICE DAILY 180 tablet 3 4 Active Biotin 51856 MCG Take 1 (one) tablet by mouth once daily Active hydroCHLOROthia zide (Hydrodiuril) 25 MG tablet TAKE 1 TABLET BY MOUTH EVERY DAY 90 tablet 5 Active Additional Information Patient taking differently: 12.5 mgOral DAILY, Reason: Patient adjusted (Takes HALF; 12.5 mg total daily), Reported on 05/10/2025 losartan (Cozaar) 25 MG tablet TAKE 1 TABLET BY MOUTH DAILY 100 tablet 4 5 Active metoprolol tartrate IR (Lopressor) 50 MG tablet Take 1 (one) tablet by mouth 2 times daily 180 tablet 3 5 Active FLUoxetine (PROzac) 10 MG capsule Take 1 (one) capsule by mouth every morning 90 capsule 1 5 Active FLUoxetine (PROzac) 20 MG capsule Take 1 (one) capsule by mouth every morning 90 capsule 1 5 Active Active Problems Problem Noted Date Diagnosed [...] Plan: Chronic, stable-encouraged to schedule appointment with water resource project manager, previously referred. Last Assessment & Plan: Chronic, stable-encouraged to schedule appointment with water resource project manager, previously referred. Last Assessment & Plan: Chronic, stable-encouraged to schedule appointment with water resource project manager, previously referred. Female hirsutism 08/07/2022 07/07/2023 Overview (07/29/2023): Last Assessment & Plan: Chronic, stable-advised to follow with manager civil and route carrier as recommended. Last Assessment & Plan: Chronic, stable-advised to follow with manager civil and route carrier as recommended. Last Assessment & Plan: Chronic, stable-advised to follow with manager civil and route carrier as recommended. Myelolipoma of right adrenal gland 08/07/2022 07/07/2023 Overview (07/29/2023): Last Assessment & Plan: Chronicity and stability unknown-encouraged follow-up with route carrier as recommended. Last Assessment & Plan: Chronicity and stability unknown-encouraged follow-up with route carrier as recommended. Last Assessment & Plan: Chronicity and stability unknown-encouraged follow-up with route carrier as recommended. Seasonal rhinitis 01/03/2022 07/07/2023 Overview [...] obesity with BMI of 50.0-59.9, adult 05/0 01/202207/29/2023 Overview (07/29/2023): Last Assessment & Plan: [...] Chronic, controlled-continued on norethindrone. Encouraged follow-up with manager civil as recommended. Last Assessment & Plan: Chronic, controlled-continued on norethindrone. Encouraged follow-up with manager civil as recommended. Last Assessment & Plan: Chronic, controlled-continued on norethindrone. Encouraged follow-up with manager civil as recommended. Bilateral low back pain with [...] & Plan: Continue your pantoprazole BID Pepcid [place] diet. Last Assessment & Plan: Chronic, stable, controlled with medication-continued on sucralfate, pantoprazole, and famotidine. Advised to follow-up with revolving inventory clerk as recommended. Last Assessment & Plan: Continue your pantoprazole BID Pepcid [place] diet. Last Assessment & Plan: Chronic, stable, controlled with medication-continued on sucralfate, pantoprazole, and famotidine. Advised to follow-up with revolving inventory clerk as recommended. Last Assessment & Plan: Continue your pantoprazole BID Pepcid [place] diet. Last Assessment & Plan: Chronic, stable, controlled with medication-continued on sucralfate, pantoprazole, and famotidine. Advised to follow-up with revolving inventory clerk as recommended. Anemia 05/03/2020 07/07/2023 Overview (07/29/2023): [...] directed as needed. Advised to follow-up with mud plant operator and kelp gatherer as recommended. Encouraged weight loss. Last Assessment & Plan: Chronic, stable, likely multifactorial-continued on albuterol as directed as needed. Advised to follow-up with mud plant operator and kelp gatherer as recommended. Encouraged weight loss. Essential hypertension [...] in time Obstructive sleep apnea 12/12/2019 07/07/20 23 Overview (07/29/2023): Last Assessment & Plan: Chronic, [...] & Plan: Chronic, episodic-encouraged to follow-up with mud plant operator as recommended. Last Assessment & Plan: Chronic, episodic-encouraged to follow-up with mud plant operator as recommended. Last Assessment & Plan: Chronic, episodic-encouraged to follow-up with mud plant operator as recommended. Pulmonary hypertension 12/12/2019 3 Overview (07/29/2023): Last Assessment & Plan: Chronicity [...] Cardiac dysrhythmia Overview (02/09/2025): palpitations Motion sickness Resolved Problems Problem Noted Date Diagnosed Date [...] & Plan: Chronic, episodic-encouraged to follow-up with mud plant operator and kelp gatherer as recommended. Last Assessment & Plan: Chronic, episodic-encouraged to follow-up with mud plant operator and kelp gatherer as recommended. Last Assessment & Plan: Chronic, episodic-encouraged to follow-up with mud plant operator and kelp gatherer as recommended. Suspected COVID-19 virus infection 08/22/2021202212/25/2023 Overview (07/29/2023): Last Assessment & Plan: Recommended symptomatic treatment with hbeb-thx-vsrkovi medications and reminded can use albuterol inhaler [...] Assessment & Plan: Recommended symptomatic treatment with ieqz-zmb-xucnsre medications and reminded can use albuterol inhaler [...] 10/19/2020 07/07/2023 07/07/2023 depression 12/10/20172024 06/16/2017 02/09/2025 Pneumonia 03/09/2025 Overview (02/09/2025): mild Encounters Date Type Department Care Team Description 06/13/2025 Patient Outreach [facility] - Care Coordination [address] [place] [id number] Kylee Sanchez, [facility] Follow-up 06/12/2025 Patient Outreach [facility] - Care Coordination [address] [place] [id number] Kylee Sanchez, [facility] Follow-up 06/12/2025 Patient Outreach [facility] - Care Coordination [address] [place] [phone] Kylee Sanchez, [facility] Follow-up 05/15/2025 Results Follow-Up [facility] [address] [place] [address] Anabell Thompson MD 05/10/2025 9:40 AM CDT Office Visit [facility] [address] [place] [address] Anabell Thompson MD Moderate episode of recurrent major depressive disorder (HCC) (Primary Dx); ROSE (generalized anxiety disorder); Essential hypertension; Palpitations; Dysuria; Anemia, unspecified type; Temperature intolerance; Vitamin D deficiency; Prediabetes 05/04/2025 Patient Outreach [facility] - Care Coordination [address] [place] [phone] Aiyana Esposito Outreach Preventive Care 04/21/2025 Refill [facility] [address] [place] [address] Love Diaz, CARD SERVICES SPECIALIST-RN X RAY MEDICATION REFILL 04/21/2025 Patient Outreach [facility] Care Coordination [address] [place] [address] Julieth Medina, [facility] Follow-up 04/20/2025 Patient Outreach [facility] - Care Coordination [address] [place] [address] Julieth Medina, [facility] Follow-up 04/20/2025 Patient Outreach [facility] - Care Coordination [address] [place] [phone] Julieth Medina, [facility] Follow-up 04/20/2025 Nurse Triage [facility] [address] [place] [address] Love Diaz, CARD SERVICES SPECIALIST-RN X RAY Shortness of Breath; Chest Tightness 04/19/2025 Refill [facility] [address] [place] [address] Love Diaz, CARD SERVICES SPECIALIST-RN X RAY Medication Clarification 04/12/2025 Telephone [facility] [address] [place] [address] Tiera Rangel, automotive professional 04/10/2025 Refill [facility] [address] [place] [address] Love Diaz, CARD SERVICES SPECIALIST-RN X RAY Refill Request 03/24/2025 Results Follow-Up [facility] [address] [place] [address] Love Diaz, CARD SERVICES SPECIALIST-RN X RAY from Last 3 Months Immunizations Immunization Administration [...] Recorded Patient Health Questionnaire-2 Score 2 05/09/2025 [facility] - Occupational Stress [...] place to sleep or slept in a fdc (including now)? No 04/13/2023 Comments No Sex and Gender Information Value Date Recorded Sex Assigned at Not on file Legal Sex Female 5:36 AM PSYCHIATRIC NP Gender Identity Not on file Sexual Orientation Not on file Last Filed Vital Signs Vital Sign Reading Time Taken Comments Blood Pressure 130/84 05/10/2025 10:20 AM CDT Pulse 64 05/10/2025 10:20 AM CDT Temperature 36.6 C (97.8 F) 05/10/2025 10:20 AM CDT Respiratory Rate 16 05/10/2025 10:2 0 AM CDT Oxygen Saturation 99% 05/10/2025 10: 20 AM CDT Inhaled Oxygen Concentration - - Weight 129.9 kg (286 lb 6.4 oz) 025 10:20 AM CDT Height 165.1 cm (5' 5) 02/09/2025 9:20 AM CDT Body Mass Index 47.66 02/09/2025 9:20 AM CDT Plan of Treatment Upcoming Encounters Date Type Department Care Team (Late st Contact Info) Description 08/23/2025 3:00 PM PSYCHIATRIC NP Office Visit [facility] - Pulmonology [address] [place] [address] Mario Decker MD [address] [place] [address] Health Maintenance Due Date Last Done Comments HEPATITIS B VACCINE (1 of 3 - 19+ 3-dose series) 2008 PNEUMOCOCCAL VACCINE (1 of 2 - PCV) 2008 HPV VACCINE (1 - 3-dose SCDM series) 2016 PAP with HPV 2019 Cervical Cancer Screening 11/13/2023 PAP SMEAR 11/13/2023 11/12/2020 (Done Outside Per Report) COVID-19 VACCINE (3 - season) 2025 02/20/2021, 12/10/2020 INFLUENZA VACCINE (#1) 2025 , 07/07/2023, 06/18/2022, [...] Procedure Name Priority Date/Time Associated Diagnosis Comments LIPID PROFILE Routine 05/13/2025 10:41 AM CDT Essential hypertension VITAMIN B12 Routine 05/13/2025 10:41 AM CDT Anemia, unspecified type VITAMIN D 25-HYDROXY Routine 05/13/2025 10:41 AM CDT Vitamin D deficiency T3 FREE Routine 05/13/2025 10:41 AM CDT Essential hypertension Temperature intolerance T4 FREE Routine 05/13/2025 10:41 AM CDT Essential hypertension Temperature intolerance TSH Routine 05/13/2025 10:41 AM CDT Essential hypertension Temperature intolerance FERRITIN Routine 05/13/2025 10:40 AM CDT Anemia, unspecified type FOLATE Routine 05/13/2025 10:40 AM CDT Anemia, unspecified type HEMOGLOBIN A1C Routine 05/13/2025 10:40 AM CDT Prediabetes COMPREHENSIVE METABOLIC PANEL Routine 05/13/2025 10:40 AM CDT Moderate episode of recurrent major depressive disorder (HCC) Essential hypertension CBC W AUTO DIFFERENTIAL Routine 05/13/2025 10:40 AM CDT Moderate episode of recurrent major depressive disorder (HCC) Essential hypertension URINALYSIS AUTO - POINT OF CARE Routine 05/10/2025 10:44 AM CDT Dysuria HEPATITIS C ANTIBODY Routine 02/13/2024 9:37 AM CDT Screen for STD (sexually transmitted disease) HIV-1 HIV-2 ANTIBODY + HIV P24 AG PANEL Routine 02/13/2024 9:37 AM CDT Screen for STD (sexually transmitted disease) from Last 3 Months or Most Recently Relevant to Health Maintenance Results * T3 FREE (05/13/2025 10:41 AM CDT) T3 Free 3.0 2.0 - 4.4 pg/mL [facility] INSURANCE BILL Blood BLOOD SPECIMEN / Unknown 05/13/2025 10:41 AM CDT 05/13/2025 Narrative [facility] INSURANCE BILL - 05/14/2025 7:08 AM CDT Performed at: 01 - [address] [id number] Chancellor: Jose Sigala PhD, Phone: [phone] us Anabell Thompson MD LAB - CHEMISTRY ORDERAB LES Final Result [facility] INSURANCE BILL [address] [place] [address] * VITAMIN D 25-HYDROXY (05/13/2025 10:41 AM CDT) Vitamin D, 25 Hydroxy 33.1 30.0 - 100.0 ng/mL [facility] INSURANCE BILL Comment: Vitamin D deficiency has been defined by the [place] of Medicine and an Endocrine Society practice guideline as a level of serum 25-OH vitamin D less than 20 ng/mL (1,2). The Endocrine Society went on to further define vitamin D insufficiency as a level between 21 and 29 ng/mL (2). 1. IOM ([place] of Medicine). 2010. Dietary reference intakes for calcium and D. [place]: The National Academies Press. 2. Ligia MF, Tangela CORONADO, Carlos Enrique SANCHEZ, et al. Evaluation, treatment, and prevention of vitamin D deficiency: an Endocrine Society clinical practice guideline. JCEM. 2010; 96():1911-30. Blood BLOOD SPECIMEN / Unknown 05/13/2025 10:41 AM CDT 05/13/2025 Narrative [facility] INSURANCE BILL - 05/14/2025 10:09 AM CDT Performed at: [address] [id number] Chancellor: Jose Sigala PhD, Phone: [phone] Anabell Thompson MD LAB - CHEMISTRY ORDERAB LES Final Result Performing Organization Address City/[facility] Co de Phone Number [facility] INSURANCE BILL [address] [place] [address] * (ABNORMAL) VITAMIN B12 (05/13/2025 10:41 AM CDT) [facility] Vitamin B12 1,628(H) 232 - 1,245 pg/mL [facility] INSURANCE BILL Blood BLOOD SPECIMEN / Unknown 05/13/2025 10:41 AM CDT 05/13/2025 Narrative [facility] INSURANCE BILL - 05/14/2025 7:08 AM CDT Performed at: [address] [id number] Chancellor: Jose Sigala PhD, Phone: [phone] Anabell Thompson MD LAB - CHEMISTRY ORDERAB LES Final Result Performing Organization Address City/[facility]/ZIP Co de Phone Number [facility] INSURANCE BILL [address] [place] [address] * TSH (05/13/2025 10:41 AM CDT) Pathologist [facility] TSH 2.890 0.450 - 4.500 uIU/mL [facility] INSURANCE BILL Blood BLOOD SPECIMEN / Unknown 05/13/2025 10:41 AM CDT 05/13/2025 Narrative [facility] INSURANCE BILL - 05/14/2025 7:08 AM CDT Performed at: 01 - [address] [id number] Chancellor: Jose Sigala PhD, Phone: [phone] us Anabell Thompson MD LAB - CHEMISTRY ORDERAB LES Final Result [facility] INSURANCE BILL [address] [place] [address] * T4 FREE (05/13/2025 10:41 AM CDT) [facility] T4 Free 1.17 0.82 - 1.77 ng/dL [facility] INSURANCE BILL Blood BLOOD SPECIMEN / Unknown 05/13/2025 10:41 AM CDT 05/13/2025 Narrative [facility] INSURANCE BILL - 05/14/2025 7:08 AM CDT Performed at: [facility] [id number] Chancellor: Jose Sigala PhD, Phone: [phone] us Anabell Thompson MD LAB - CHEMISTRY ORDERAB LES Final Result [facility] INSURANCE BILL [address] [place] [address] * LIPID PROFILE (05/13/2025 10:41 AM CDT) Cholesterol 132 100 - 199 mg/dL [facility] INSURANCE BILL Triglycerides 47 0 - 149 mg/dL [facility] INSURANCE BILL HDL Cholesterol 50 >39 mg/dL [facility] INSURANCE BILL VLDL Calculated 11 5 - 40 mg/dL [facility] INSURANCE BILL LDL Calculated 71 0 - 99 mg/dL [facility] INSURANCE BILL Blood BLOOD SPECIMEN / Unknown 05/13/2025 10:41 AM CDT 05/13/2025 Narrative [facility] INSURANCE BILL - 05/14/2025 7:08 AM CDT Performed at: [address] [id number] Chancellor: Jose Sigala PhD, Phone: [phone] Anabell Thompson MD LAB - CHEMISTRY ORDERAB LES Final Result Performing Organization Address City/[facility] Co de Phone Number [facility] INSURANCE BILL [address] [place] [address] * (ABNORMAL) HEMOGLOBIN A1C (05/13/2025 10:40 AM CDT) Pathologist [facility] Hemoglobin A1c 5.9(H) 4.8 - 5.6 % [facility] INSURANCE BILL Comment: Prediabetes: 5.7 - 6.4 Diabetes: >6.4 Glycemic control for adults with diabetes: <7.0 Blood BLOOD SPECIMEN WITH EDTA / Unknown 05/13/2025 10:40 AM CDT 05/13/2025 Narrative [facility] INSURANCE BILL - 05/14/2025 8:09 AM CDT Performed at: [address] [id number] Chancellor: Jose Sigala PhD, Phone: [phone] Anabell Thompson MD LAB - CHEMISTRY ORDERAB LES Final Result Performing Organization Address City/[facility]/ZIP Co de Phone Number [facility] INSURANCE BILL [address] [place] [address] * (ABNORMAL) CBC WITH DIFFERENTIAL (05/13/2025 10:40 AM CDT) WBC 7.4 3.4 - 10.8 x10E3/uL [facility] INSURANCE BILL RBC 4.67 3.77 - 5.28 x10E6/uL [facility] INSURANCE BILL Hemoglobin 10.6(L) 11.1 - 15.9 g/dL [facility] INSURANCE BILL Hematocrit 35.3 34.0 - 46.6 % [facility] INSURANCE BILL MCV 76(L) 79 - 97 fL [facility] INSURANCE BILL MCH 22.7(L) 26.6 - 33.0 pg [facility] INSURANCE BILL MCHC 30.0(L) 31.5 - 35.7 g/dL [facility] INSURANCE BILL RDW 17.0(H) 11.7 - 15.4 % [facility] INSURANCE BILL Platelet Count 596(H) 150 - 450 x10E3/uL [facility] INSURANCE BILL Granulocytes % 52 Not Estab. % [facility] INSURANCE BILL Lymphocytes % 36 Not Estab. % [facility] INSURANCE BILL Monocytes % 10 Not Estab. % [facility] INSURANCE BILL Eosinophils % 1 Not Estab. % [facility] INSURANCE BILL Basophils % 1 Not Estab. % [facility] INSURANCE BILL Granulocytes Absolute 3.9 1.4 - 7.0 x10E3/uL [facility] INSURANCE BILL Lymphocytes Absolute 2.6 0.7 - 3.1 x10E3/uL [facility] INSURANCE BILL Monocytes Absolute 0.7 0.1 - 0.9 x10E3/uL [facility] INSURANCE BILL Eosinophils Absolute 0.1 0.0 - 0.4 x10E3/uL [facility] INSURANCE BILL Basophils Absolute 0.1 0.0 - 0.2 x10E3/uL [facility] INSURANCE BILL Immature Granulocytes 0 Not Estab. % [facility] INSURANCE BILL Immature Granulocytes Absolute 0.0 0.0 - 0.1 x10E3/uL [facility] INSURANCE BILL Blood BLOOD SPECIMEN / Unknown 05/13/2025 10:40 AM CDT 05/13/2025 Narrative [facility] INSURANCE BILL - 05/14/2025 7:08 AM CDT Performed at: 01 - [facility] [id number] Chancellor: Jose Sigala PhD, Phone: [phone] us Anabell Thompson MD LAB - HEMATOLOGY ORDERA BLES Final Result [facility] INSURANCE BILL [address] [place] [address] * (ABNORMAL) COMPREHENSIVE METABOLIC PANEL (05/13/2025 10:40 AM CDT) Glucose 84 70 - 99 mg/dL [facility] INSURANCE BILL BUN 9 6 - 20 mg/dL [facility] INSURANCE BILL Creatinine 0.81 0.57 - 1.00 mg/dL [facility] INSURANCE BILL eGFR by CKD-EPI 97 >59 mL/min/1.7 3 [facility] INSURANCE BILL BUN/Creatinine Ratio 11 9 - 23 [facility] INSURANCE BILL Sodium 139 134 - 144 mmol/L [facility] INSURANCE BILL Potassium 4.9 3.5 - 5.2 mmol/L [facility] INSURANCE BILL Chloride 103 96 - 106 mmol/L [facility] INSURANCE BILL CO2 22 20 - 29 mmol/L [facility] INSURANCE BILL Calcium 9.5 8.7 - 10.2 mg/dL [facility] INSURANCE BILL Protein Total 7.5 6.0 - 8.5 g/dL [facility] INSURANCE BILL Albumin 4.2 3.9 - 4.9 g/dL [facility] INSURANCE BILL Globulin Total 3.3 1.5 - 4.5 g/dL [facility] INSURANCE BILL Bilirubin Total 0.4 0.0 - 1.2 mg/dL [facility] INSURANCE BILL Alkaline Phosphatase 118(H) 41 - 116 IU/L [facility] INSURANCE BILL AST 28 0 - 40 IU/L [facility] INSURANCE BILL ALT 27 0 - 32 IU/L [facility] INSURANCE BILL Blood BLOOD SPECIMEN / Unknown 05/13/2025 10:40 AM CDT 05/13/2025 Narrative [facility] INSURANCE BILL - 05/14/2025 8:09 AM CDT Performed at: 01 - [address] [id number] Chancellor: Jose Sigala PhD, Phone: [phone] us Anabell Thompson MD LAB - CHEMISTRY ORDERAB LES Final Result [facility] INSURANCE BILL [address] [place] [address] * FOLATE (05/13/2025 10:40 AM CDT) Pathologist [facility] Folate 19.0 >3.0 ng/mL [facility] INSURANCE BILL Comment: A serum folate concentration of less than 3.1 ng/mL is considered to represent clinical deficiency. Blood BLOOD SPECIMEN / Unknown 05/13/2025 10:40 AM CDT 05/13/2025 Narrative [facility] INSURANCE BILL - 05/14/2025 7:08 AM CDT Performed at: [address] [place] [id number] Chancellor: Jose Sigala PhD, Phone: [phone] Anabell Thompson MD LAB - CHEMISTRY ORDERAB LES Final Result Performing Organization Address City/[facility] Co de Phone Number [facility] [address] [place] [address] * (ABNORMAL) FERRITIN (05/13/2025 10:40 AM CDT) [facility] Ferritin 9(L) 15 - 150 ng/mL [facility] INSURANCE BILL Blood BLOOD SPECIMEN / Unknown 05/13/2025 10:40 AM CDT 05/13/2025 Narrative [facility] INSURANCE BILL - 05/14/2025 7:08 AM CDT Performed at: [address] [place] [id number] Chancellor: Jose Sigala PhD, Phone: [phone] Anabell Thompson MD LAB - CHEMISTRY ORDERAB LES Final Result Performing Organization Address City/[facility] Co de Phone Number [facility] INSURANCE BILL [address] [place] [address] * URINALYSIS AUTO - POINT OF CARE (05/10/2025 10:44 AM CDT) Clarity UA POCT clear Color UA POCT bright yellow Leukocyte UA negative Negative Nitrite UA POCT negative Negative Urobilinogen UA 0.2 0.1 - 1.0 Protein UA POCT negative Negative pH UA 7.0 5.0 - 8.0 pH units Blood UA negative Negative Specific Many UA POCT 1.015 1.002 - 1.030 Ketone UA negative Negative Bilirubin UA POCT negative Negative Glucose UA negative Negative Urine URINE / Unknown 05/10/2025 1 0:44 AM CDT Anabell Thompson MD LAB - POINT OF CARE ORD ERABLES Final Result * HIV-1 HIV-2 ANTIBODY + HIV P24 [...] Resulting Agency Comment Lab Testing performed at: [facility] [id number] Love Diaz APRN-RN X RAY LAB - CHEMISTRY ORDERABL ES Final Result Performing Organization Address City/[facility] Co de Phone Number [facility] ACCOUNT BILL [address] [place] [address] * HEPATITIS C ANTIBODY (02/13/2024 9:37 AM [...] Resulting Agency Comment Lab Testing performed at: [facility] [address] [facility] [id number] Love Diaz CARD SERVICES SPECIALIST-RN X RAY LAB - CHEMISTRY ORDERABL ES Final Result Performing Organization Address City/[facility]/ZIP Co de Phone Number [facility] ACCOUNT BILL [address] [place] [address] from Last 3 Months or Most Recently Relevant to Health Maintenance Insurance MEDICA [facility] Advance Directives * Full Code (Latest Code Status on File) Date Activated Date Inactivated Comments 04/13/2023 1:07 PM 04/15/2023 6:18 PM Care Teams Byproducts Operator Relationship Specialty Start Date End Date Love Diaz, CARD SERVICES SPECIALIST-RN X RAY [address] [phone] PCP - Attributed-[employer] STL 08/03/23 Anabell Thompson MD [address] [place] [address] PCP - General Internal Medicine 05/10/25 [place] [address] [facility] [address] [place] [address] Fire Sprinkler Inspector Cardiovascular Disease 12/01/22
--- OUTSIDE RECORDS SUMMARY | 2025-06-22 23:27 | XMS_ITS ---
Author Organization [facility] Address [address] [place] [address] Care Team Providers Care Pipe Insulator Name Role Phone Henry Brown MD Unavailable [phone] Love Diaz NP Primary Care Provider [phone] Active Problems Problem Noted Date Diagnosed Date [...] loss. Assessment & Plan (08/12/2022 8:07 AM STADIUM MANAGER): Chronicity and stability unknown-patient has been referred to gynecology due to right ovarian cyst, also being seen by endocrinology for new finding of myelolipoma right adrenal gland, explained both can address concerns regarding unwanted hair growth and possible PCOS. Thrombocytosis 08/12/2022 Assessment & Plan (12/28/2022 9:35 AM CDT): Chronic, stable-encouraged to schedule appointment with supervisor sample preparation, previously referred. Assessment & Plan (08/12/2022 8:07 AM STADIUM MANAGER): Chronic, worsening-referred to Hematology for further evaluation and management. Female hirsutism 08/07/2022 Assessment & Plan (12/28/2022 9:37 AM CDT): Chronic, stable-advised to follow with patrol inspector and top installer as recommended. Assessment & Plan (08/12/2022 8:05 AM STADIUM MANAGER): Chronic, stable-patient has been referred to gynecology due to right ovarian cyst, also being seen by endocrinology for new finding of myelolipoma right adrenal gland, explained both can address concerns regarding unwanted hair growth and possible PCOS. Myelolipoma of right adrenal gland 08/07/2022 Assessment & Plan (12/28/2022 9:36 AM CDT): Chronicity and stability unknown-encouraged follow-up with top installer as recommended. Assessment & Plan (08/12/2022 8:03 AM STADIUM MANAGER): Chronicity and stability unknown-reassured patient benign lesion, however referred to top installer for further evaluation and monitoring/management if needed. Seasonal rhinitis 01/03/2022 Assessment & Plan (12/28/2022 9:37 AM CDT): Chronic, stable, controlled with medication-continued on cetirizine. Assessment & Plan (01/03/2022 4:43 PM CDT): Chronic, stable, controlled with as needed medication-refills for cetirizine sent to pharmacy per patient request. Heart palpitations 12/06/2021 Assessment & Plan (12/28/2022 9:38 AM CDT): Chronic, episodic-encouraged to follow-up with freight car cleaner delta system as recommended. Assessment & Plan (01/03/2022 4:40 [...] week. Assessment & Plan (08/12/2022 8:04 AM STADIUM MANAGER): Chronic, worsening per patient report, not improving with dietary changes, however stable since 06/2022-referred to top installer for further evaluation and management. Assessment & [...] AM CDT): Chronic, episodic-encouraged to follow-up with freight car cleaner delta system and activities attendant as recommended. Assessment & Plan (09/04/2021 1:30 PM STADIUM MANAGER): Acute, intermittent-started on prednisone 20 mg [...] Chronic, controlled-continued on norethindrone. Encouraged follow-up with patrol inspector as recommended. ROSE (generalized anxiety disorder) 07/02/2021 [...] weeks. Assessment & Plan (09/04/2021 1:31 PM STADIUM MANAGER): Chronic, stable, uncontrolled, not on medication, referred at last visit to a psychiatrist and psychologist-encouraged to make appointment with psychiatrist and psychologist as previously discussed. Also, previous started on Lexapro which she stopped taking due to suspected side effect of low-grade fever, advised okay to restart Lexapro 10 mg once daily if desired. Assessment & Plan (07/02/2021 2:37 PM STADIUM MANAGER): Chronic, stable, uncontrolled, not on medication [...] a psychologist for counseling, again advised calling [employer] for a list of providers, then calling provider to schedule an appointment. Again, recommended that she consider evaluation by a psychiatrist, instructing to call insurance for list of providers, then to call to schedule an appointment for evaluation. Recommended follow-up in 4 weeks. Assessment & Plan (09/04/2021 1:31 PM STADIUM MANAGER): Chronic, stable, uncontrolled, not on medication, referred at last visit to a psychiatrist and psychologist-encouraged to make appointment with psychiatrist and psychologist as previously discussed. Also, previous started on Lexapro which she stopped taking due to suspected side effect of low-grade fever, advised okay to restart Lexapro 10 mg once daily if desired. Assessment & Plan (07/02/2021 2:37 PM STADIUM MANAGER): Chronic, stable, uncontrolled, not on medication [...] needed. Assessment & Plan (09/04/2021 1:29 PM STADIUM MANAGER): Chronic, currently asymptomatic, with x-rays ordered at initial/last visit- encouraged to get x-ray of lumbar spine along with x-ray of right hip for persistent right upper anterior thigh pain. Assessment & Plan (07/02/2021 2:38 PM STADIUM MANAGER): Chronic, episodic, with worsening upper right thigh pain-ordered x-ray of lumbar spine and right hip. Other constipation 07/02/2021 Assessment & Plan (12/28/2022 9:39 AM CDT): Chronic, episodic, not currently on daily medication-encouraged to use MiraLax as directed as needed. Assessment & Plan (07/02/2021 2:39 PM STADIUM MANAGER): Chronic, stable, likely related to daily iron supplement-recommended 1-2 Colace HS as needed. Bilateral lower extremity edema 07/02/2021 Assessment & Plan (12/28/2022 9:39 AM CDT): Chronic, stable, controlled with medication-continued on hydrochlorothiazide. Assessment & Plan (07/02/2021 2:40 PM STADIUM MANAGER): Chronic, stable, waxes and wanes per patient, on daily diuretic-continued on hydrochlorothiazide and encouraged to keep follow-up appointment with freight car cleaner delta system, Dr. Brown. Gastroesophageal reflux dise ase with esophagitis without hemorrhage 08/03/2020 Assessment & Plan (12/28/2022 9:41 AM CDT): Chronic, stable, controlled with medication-continued on sucralfate, pantoprazole, and famotidine. Advised to follow-up with simulation developer as recommended. Assessment & Plan (09/04/2021 1:33 PM STADIUM MANAGER): Chronic, stable, controlled with medication-continued on omeprazole, famotidine, and sucralfate per simulation developer. Assessment & Plan (07/02/2021 2:35 PM STADIUM MANAGER): Chronic, stable, uncontrolled per patient report-continued on omeprazole, sucralfate, famotidine, and Zofran as directed. Encouraged to keep appointment today with simulation developer to discuss symptoms. Assessment & Plan (08/03/2020 1:14 PM STADIUM MANAGER): Continue your pantoprazole BID Pepcid [place] diet. Shortness of breath 05/03/2020 Assessment & Plan (12/28/2022 9:41 AM CDT): Chronic, stable, likely multifactorial-continued on albuterol as directed as needed. Advised to follow-up with freight car cleaner delta system and activities attendant as recommended. Encouraged weight loss. Assessment & Plan (01/03/2022 4:39 PM CDT): Chronic, stable, now established with a activities attendant with recent PFT-encouraged to keep recommended follow-up appointment with activities attendant, Dr. Lyons. Continued on albuterol inhaler as directed as needed. Assessment & Plan (12/06/2021 5:52 AM CDT): Chronic, stable, previously referred to pulmonology-advised to call to schedule an appointment. Assessment & Plan (09/04/2021 1:37 PM STADIUM MANAGER): Acute, intermittent-started on prednisone 20 mg 1 tablet twice daily x5 days. Encouraged to use albuterol inhaler as directed as needed for chest tightness, wheezing. and coughing jags. Instructed to go to ER if difficulty breathing or if not getting relief of symptoms with inhaler. Voiced understanding. Assessment & Plan (07/02/2021 2:32 PM STADIUM MANAGER): Chronic, episodic, stable, likely multifactorial, prescribed an inhaler with perceived benefit-continued on albuterol metered dose inhaler as directed as needed. Encouraged to follow-up with freight car cleaner delta system, Dr. Brown, as recommended for pulmonary hypertension. Anemia 05/03/2020 Assessment & Plan (12/28/2022 9:41 AM CDT): Chronic, controlled at last check, not on multivitamin or iron supplement-will monitor CBC periodically. Assessment & Plan (09/04/2021 10:44 AM STADIUM MANAGER): Chronic, stable-encouraged to continue iron supplement daily. Assessment & Plan (07/02/2021 2:34 PM STADIUM MANAGER): Chronic, stable-reviewed with patient most recent [...] amlodipine, lisinopril, and hydrochlorothiazide. Encouraged follow-up with freight car cleaner delta system as recommended. Assessment & Plan (08/12/2022 8:06 AM STADIUM MANAGER): Chronic, stable, controlled with medication-continued on metoprolol XL, amlodipine, lisinopril, and hydrochlorothiazide. Assessment & Plan (01/03/2022 4:42 PM CDT): Chronic, stable, uncontrolled on medication-continued on hydrochlorothiazide, lisinopril, metoprolol, and amlodipine. Encouraged to keep consultation appointment with freight car cleaner delta system on 01/16/2022. Assessment & Plan (07/02/2021 2:31 PM STADIUM MANAGER): Chronic, stable, controlled on medications-continued on amlodipine, hydrochlorothiazide, lisinopril, and metoprolol. Encouraged to follow-up with freight car cleaner [employer] system, Dr. Brown, as recommended. Pulmonary hypertension 12/12/2019 Assessment & Plan (12/28/2022 9:44 AM CDT): Chronicity and stability unknown-encouraged to follow-up with cardiology and pulmonology as recommended. Assessment & Plan (07/02/2021 2:30 PM STADIUM MANAGER): Chronic, stability unknown-encouraged to follow-up with freight car cleaner [employer] system, Dr. Brown, as recommended. Sleep apnea 12/12/2019 Assessment & Plan (12/28/2022 9:43 AM CDT): Chronic, stability unknown-encouraged weight loss. Advised follow-up with sleep medicine as recommended. Assessment & Plan (07/02/2021 2:31 PM STADIUM MANAGER): Chronic, stability unknown-encouraged better compliance with CPAP, instructed to use nightly. 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 Assessment & Plan (01/03/2022 4:39 PM CDT): Chronic, stable, now established with a activities attendant with recent PFT-encouraged to keep recommended follow-up appointment with activities attendant, Dr. Lyons. Continued on albuterol inhaler as [...] symptoms. Assessment & Plan (09/04/2021 1:29 PM STADIUM MANAGER): Acute symptoms suggestive of acute bronchitis-started on azithromycin and prednisone, advised to use albuterol inhaler as directed as needed. Instructed to go to ER difficulty breathing. Patient voiced understanding. Productive cough 09/04/2021 12/23/2022 Assessment & Plan (09/04/2021 1:36 PM STADIUM MANAGER): Acute, sputum now white, previously yellow, but still with shortness of breath and chest tightness-started on Z-Rogers as directed as needed and prednisone 20 mg 1 tablet twice daily x5 days. Referred to activities attendant for further evaluation and management. Advised to go to ER if difficulty breathing or symptoms not relieved with albuterol inhaler. Voiced understanding. Ground glass opacity present on imaging of lung 09/04/2021 12/23/2022 Assessment & Plan (09/04/2021 1:34 PM STADIUM MANAGER): New finding on recent chest x-ray dated 09/01/2021, not present on x-ray dated 07/16/2021-started on Z-Rogers as directed as needed and prednisone 20 mg 1 tablet twice daily. Referred to activities attendant for furtgher evaluation and management of symptoms and abnormal chest x-ray. Suspected COVID-19 virus infection 08/22/2021 12/25/2022 Assessment & Plan (08/22/2021 12:05 PM STADIUM MANAGER): Recommended symptomatic treatment with [id number] medications and reminded can use albuterol inhaler [...] appointment. Assessment & Plan (09/04/2021 1:37 PM STADIUM MANAGER): Acute, stable-encouraged patient to schedule an appointment with brim stitcher referral made at initial/last visit on 07/02/2021. Assessment & Plan (07/02/2021 2:37 PM STADIUM MANAGER): Acute, episodic, worsening as evidence by increased frequency-referred to brim stitcher for further evaluation and management. Pain of right thigh 07/02/2021 12/26/19 Assessment & Plan (09/04/2021 1:35 PM STADIUM MANAGER): Chronic, stable, with x-rays ordered at initial/last visit-encouraged to get x- ray of lumbar spine along with x-ray of right hip for persistent right upper anterior thigh pain. Assessment & Plan (07/02/2021 2:39 PM STADIUM MANAGER): Chronic, episodic, worsening-ordered x-ray of lumbar [...] symptoms develop. Provided with a note via [employer] excusing absence from work today. Assessment & Plan (08/03/2020 1:15 PM STADIUM MANAGER): Muscle relaxant to help her body to relax. Cyclobenzaprine 10 mg Tylenol for discomfort. Drink fluids. Assessment & Plan (2020 2:51 PM STADIUM MANAGER): Instructed to continue with Mucinex DM and OTC cough suppressants. Patient instructed to Self-isolate 10 days from start of symptoms Increase fluid intake Report new or worsening symptoms Warning signs warranting immediate medical care: chest pain, trouble breathing, worsening shortness of breath Acute chest pain 12/12/2019 07/02/2021 Essential hypertension 12/12/201901/05 Dyspnea and respiratory abnormalities 12/23/2022
--- OUTSIDE RECORDS SUMMARY | 2025-06-22 23:27 | XMS_ITS | Clinical Summary ---
Author Organization [facility] Esa Michael Address [address] [place] [address] Phone Care Team Providers Care Mirror Finishing Machine Operator Name Role Phone Unavailable Primary Care [...] Plan: Chronic, stable-encouraged to schedule appointment with manufacturing automation engineer, previously referred. Last Assessment & Plan: Chronic, stable-encouraged to schedule appointment with manufacturing automation engineer, previously referred. Myelolipoma of right adrenal gland 08/07/2022 Overview (07/10/2023): Last Assessment & Plan: Chronicity and stability unknown-encouraged follow-up with tank setter as recommended. Last Assessment & Plan: Chronicity and stability unknown-encouraged follow-up with tank setter as recommended. Female hirsutism 08/07/2022 Overview (07/10/2023): Last Assessment & Plan: Chronic, stable-advised to follow with marine equipment design engineer and tank setter as recommended. Last Assessment & Plan: Chronic, stable-advised to follow with marine equipment design engineer and tank setter as recommended. Seasonal rhinitis 01/03/2022 Overview (07/10/2023): Last Assessment & Plan: Chronic, stable, controlled with medication-continued on cetirizine. Last Assessment & Plan: Chronic, stable, controlled with medication-continued on cetirizine. Morbid obesity with BMI of 50.0-59.9, adult 01/2022 Overview (07/10/2023): Last Assessment & Plan: [...] & Plan: Chronic, episodic-encouraged to follow-up with promotion producer and assembler small products as recommended. Last Assessment & Plan: Chronic, episodic-encouraged to follow-up with promotion producer and assembler small products as recommended. Suspected COVID-19 virus infection 08/22/2021 Overview (07/10/2023): Last Assessment & Plan: Recommended symptomatic treatment with [id number] medications and reminded can use albuterol inhaler [...] Chronic, controlled-continued on norethindrone. Encouraged follow-up with marine equipment design engineer as recommended. Last Assessment & Plan: Chronic, controlled-continued on norethindrone. Encouraged follow-up with marine equipment design engineer as recommended. Other constipation 07/02/2021 Overview (07/10/2023): [...] & Plan: Continue your pantoprazole BID Pepcid [place] diet. Last Assessment & Plan: Chronic, stable, controlled with medication-continued on sucralfate, pantoprazole, and famotidine. Advised to follow-up with glass blower as recommended. Last Assessment & Plan: Continue your pantoprazole BID Pepcid [place] diet. Last Assessment & Plan: Chronic, stable, controlled with medication-continued on sucralfate, pantoprazole, and famotidine. Advised to follow-up with glass blower as recommended. Shortness of breath 05/03/2020 Overview (07/10/2023): Last Assessment & Plan: Chronic, stable, likely multifactorial-continued on albuterol as directed as needed. Advised to follow-up with promotion producer and assembler small products as recommended. Encouraged weight loss. Anemia 05/03/2020 [...] & Plan: Chronic, episodic-encouraged to follow-up with promotion producer as recommended. Last Assessment & Plan: Chronic, episodic-encouraged to follow-up with promotion producer as recommended. Obstructive sleep apnea 12/12/2019 Overview (07/10/2023): Last Assessment & Plan: Chronic, stability unknown-encouraged weight loss. Advised follow-up with sleep medicine as recommended. Last Assessment & Plan: Chronic, stability unknown-encouraged weight loss. Advised follow-up with sleep medicine as recommended. Encounters Date Type Department Care Team Description 05/31/2025 External Device Data ST[facility] ABSTRACTION Provider, Abstract 05/31/2025 External Device Data STL ABSTRACTION Provider, Abstract 05/24/2025 External Device Data STL ABSTRACTION Provider, Abstract 05/09/2025 External Device Data STL ABSTRACTION Provider, Abstract 04/25/2025 External Device Data STL ABSTRACTION Provider, Abstract 04/18/2025 External Device Data STL ABSTRACTION Provider, Abstract 04/04/2025 External Device Data STL ABSTRACTION Provider, Abstract 03/22/2025 External Device Data STL ABSTRACTION Provider, Abstract [...] Comments Blood Pressure 138/92 10/07/2023 3:38 PM VBA DEVELOPER Pulse 99 10/07/2023 3:38 PM VBA DEVELOPER Temperature 36.8 C (98.3 F) 05/06/2022 5:41 PM CDT Respiratory Rate 18 10/07/2023 3:38 PM VBA DEVELOPER Oxygen Saturation 99% 07/10/2023 9:05 AM VBA DEVELOPER Inhaled Oxygen Concentration - - Weight 142.9 kg (315 lb) 10/07/2023 3:38 PM VBA DEVELOPER Height 165.1 cm (5' 5) 10/07/2023 3:38 PM VBA DEVELOPER Body Mass Index 52.42 10/07/2023 3:38 PM VBA DEVELOPER Plan of Treatment Health Maintenance Due Date Last Done Comments Pre-Diabetes and Diabetes Screening 1989 HEPATITIS B VACCINES (1 of 3 - 19+ 3-dose series) 2008 HPV/Cotest (21-29) 2010 HPV VACCINES (1 - 3-dose SCD M series) 2016 CERVICAL CANCER SCREENING 2019 HPV/Cotest (30-65) 2019 PAP SMEAR 2019 INFLUENZA VACCINE (#1) 2025 , 06/18/2022, 06/18/2022, Additional history exists COVID-19 Vaccine (3 - 2024-2 6 season) 2025 02/20/2021, 12/10/2020 DTAP/TDAP/TD VACCINES (5 - T d or Tdap) 09/08/2027 09/08/2017, 03/27/1995, 04/18/1994, Additional history exists Insurance [facility] [id number] OUT OF NETWORK
--- OUTSIDE RECORDS SUMMARY | 2025-06-22 23:27 | XMS_ITS | Encounter Summary ---
Author Organization [facility] Address [address] [place] [address] Care Team Providers Care Sparker And Patcher Name Role Phone Henry Suarez MD Unavailable Love Diaz BALLAST CLEANING MACHINE OPERATOR-JOINT CLEANING MACHINE OPERATOR Primary Care Provider + Love Diaz BALLAST CLEANING MACHINE OPERATOR-JOINT CLEANING MACHINE OPERATOR Unavailable [phone] Deyanira De La Fuente RN Unavailable [phone] Anabell Thompson MD Primary Care Provider Love Diaz BALLAST CLEANING MACHINE OPERATOR-JOINT CLEANING MACHINE OPERATOR Primary Care Provider + Aiyana Esposito Unavailable [phone] Aiyana Esposito Unavailable [phone] Anabell Thompson MD Primary Care Provider Reason for Visit * Reason Onset Date Comments Surgery Scheduling 11/13/2023 Pt has Flu, w ould like a Nurse call to discuss upcoming Surgery on Thursday24, Pls call to determine if shd still come in, thank you. Encounter Details Date Type Department Care Team (Late st Contact Info) Description 11/13/2023 Telephone [facility] - Centralized Scheduling [address] [place] [id number] Izabella Inman MD [address] [address] Surgery Scheduling (Pt has Flu, would like a Nurse call to discuss upcoming Surgery on Thursday24, Pls call to determine if shd still [...] Recorded Patient Health Questionnaire-2 Score 0 11/10/2023 [facility] Occup[facility] ional [facility] - Occupational Stress [...] on file Legal Sex Female 5:36 AM RESEARCH GROUP DIRECTOR Gender Identity Not on file Sexual Orientation [...] 1:46 PM CDT Spoke with patient through [employer] and she has been scheduled for January 24 at 9am, with an 7am arrival. Procedure instructions sent to patient via [employer]. * Telephone Encounter - Ochoa Polk - 12/08/2023 1:46 PM CDT 2nd attempt-[employer] message sent to patient about rescheduling surgery. * Telephone Encounter - Ochoa Polk - 11/24/2023 2:39 PM CDT I sent patient a [employer] message to see if she wanted to reschedule. * Telephone Encounter - PolkDamonPacker L - 11/17/2023 4:25 PM CDT I called and left patient a message on Thursday that she should not have procedure. I will reach out to patient at a later date and reschedule her. * Telephone Encounter - Isreal Last - 11/13/2023 3:52 PM CDT Pt has Flu, would like a Nurse call to discuss upcoming Surgery on Thursday24, Pls call to determine if shd still come in, thank you. * Telephone Encounter - Elizabeth Burrows - 11/13/2023 3:36 PM CDT Pt returning call to speak about surgery and she is not feeling well documented in this encounter Plan of Treatment Upcoming Encounters Date Type Department Care Team (Late st Contact Info) Description 08/23/2025 3:00 PM RESEARCH GROUP DIRECTOR Office Visit [facility] - Pulmonology [address] [place] [phone] Mario Decker MD [address] [place] [phone] documented as of this encounter Visit Diagnoses Not on filedocumented in this encounter Additional Health Concerns Infection Onset Date Last Indicated Resolved Time Influenza A or B 11/10/2023 11/10/2023 11/17/2023 4:33 AM CDT COVID-19 Under Investigation 09/06/2024 09/06/2024 09/06/2024 4:15 PM RESEARCH GROUP DIRECTOR documented as of this encounter Care Teams Sparker And Patcher Relationship Specialty Start Date End Date Love Diaz, BALLAST CLEANING MACHINE OPERATOR-JOINT CLEANING MACHINE OPERATOR [address] [place] [phone] PCP - General Nurse Practitioner 09/15/23 02/15/24 Love Diaz, BALLAST CLEANING MACHINE OPERATOR-JOINT CLEANING MACHINE OPERATOR [address] [place] [address] PCP - Attributed-[facility] 08/03/23 Anabell Thompson MD [address] [place] [address] PCP - General Internal Medicine 02/16/24 02/16/24 Love Diaz, BALLAST CLEANING MACHINE OPERATOR-JOINT CLEANING MACHINE OPERATOR [address] [place] [address] PCP - General Nurse Practitioner 02/17/24 05/09/25 Anabell Thompson MD [address] [place] [address] PCP - General Internal Medicine 05/10/25 [place] [id number] [address] Can Tender Cardiovascular Disease 12/01/22 Deyanira De La Fuente, GARCIA School Age Lead TeacherProgramming Intern 01/05/24 02/08/24 Aiyana Esposito Care Coordination Specialist Care Management 11/15/24 12/30/24 Aiyana Esposito Care Coordination Specialist Care Management 05/04/25 05/04/25 documented as of this encounter
--- OUTSIDE RECORDS SUMMARY | 2025-06-22 23:27 | XMS_ITS | Clinical Summary ---
Author Organization [facility] al Address [address] [place] [address] Care Team Providers Care Retail Sales Merchandiser Development Name Role Phone Henry Brown MD Unavailable [phone] Love Diaz NP Primary Care Provider [phone] Allergies Active Allergy Reactions Criticality Noted Date [...] loss. Assessment & Plan (08/12/2022 8:07 AM HOME HEALTH NURSE LICENSED PRACTICAL): Chronicity and stability unknown-patient has been referred to gynecology due to right ovarian cyst, also being seen by endocrinology for new finding of myelolipoma right adrenal gland, explained both can address concerns regarding unwanted hair growth and possible PCOS. Thrombocytosis 08/12/2022 Assessment & Plan (12/28/2022 9:35 AM CDT): Chronic, stable-encouraged to schedule appointment with evp of products & co founder, previously referred. Assessment & Plan (08/12/2022 8:07 AM HOME HEALTH NURSE LICENSED PRACTICAL): Chronic, worsening-referred to Hematology for further evaluation and management. Female hirsutism 08/07/2022 Assessment & Plan (12/28/2022 9:37 AM CDT): Chronic, stable-advised to follow with assessment analyst and geomagnetist as recommended. Assessment & Plan (08/12/2022 8:05 AM HOME HEALTH NURSE LICENSED PRACTICAL): Chronic, stable-patient has been referred to gynecology due to right ovarian cyst, also being seen by endocrinology for new finding of myelolipoma right adrenal gland, explained both can address concerns regarding unwanted hair growth and possible PCOS. Myelolipoma of right adrenal gland 08/07/2022 Assessment & Plan (12/28/2022 9:36 AM CDT): Chronicity and stability unknown-encouraged follow-up with geomagnetist as recommended. Assessment & Plan (08/12/2022 8:03 AM HOME HEALTH NURSE LICENSED PRACTICAL): Chronicity and stability unknown-reassured patient benign lesion, however referred to geomagnetist for further evaluation and monitoring/management if needed. Seasonal rhinitis 01/03/2022 Assessment & Plan (12/28/2022 9:37 AM CDT): Chronic, stable, controlled with medication-continued on cetirizine. Assessment & Plan (01/03/2022 4:43 PM CDT): Chronic, stable, controlled with as needed medication-refills for cetirizine sent to pharmacy per patient request. Heart palpitations 12/06/2021 Assessment & Plan (12/28/2022 9:38 AM CDT): Chronic, episodic-encouraged to follow-up with casting sorter as recommended. Assessment & Plan (01/03/2022 4:40 [...] week. Assessment & Plan (08/12/2022 8:04 AM HOME HEALTH NURSE LICENSED PRACTICAL): Chronic, worsening per patient report, not improving with dietary changes, however stable since 06/2022-referred to geomagnetist for further evaluation and management. Assessment & [...] AM CDT): Chronic, episodic-encouraged to follow-up with casting sorter and binder sorter as recommended. Assessment & Plan (09/04/2021 1:30 PM HOME HEALTH NURSE LICENSED PRACTICAL): Acute, intermittent-started on prednisone 20 mg 1 [...] Chronic, controlled-continued on norethindrone. Encouraged follow-up with assessment analyst as recommended. ROSE (generalized anxiety disorder) 07/02/2021 [...] psychologist for counseling, again advised calling insurance [employer] for a list of providers, then calling provider to schedule an appointment. Again, recommended that she consider evaluation by a psychiatrist, instructing to call insurance for list of providers, then call to schedule to an appointment for evaluation. Recommended follow-up in 4 weeks. Assessment & Plan (09/04/2021 1:31 PM HOME HEALTH NURSE LICENSED PRACTICAL): Chronic, stable, uncontrolled, not on medication, referred at last visit to a psychiatrist and psychologist-encouraged to make appointment with psychiatrist and psychologist as previously discussed. Also, previous started on Lexapro which she stopped taking due to suspected side effect of low-grade fever, advised okay to restart Lexapro 10 mg once daily if desired. Assessment & Plan (07/02/2021 2:37 PM HOME HEALTH NURSE LICENSED PRACTICAL): Chronic, stable, uncontrolled, not on medication previously [...] a psychologist for counseling, again advised calling [employer] for a list of providers, then calling provider to schedule an appointment. Again, recommended that she consider evaluation by a psychiatrist, instructing to call insurance for list of providers, then to call to schedule an appointment for evaluation. Recommended follow-up in 4 weeks. Assessment & Plan (09/04/2021 1:31 PM HOME HEALTH NURSE LICENSED PRACTICAL): Chronic, stable, uncontrolled, not on medication, referred at last visit to a psychiatrist and psychologist-encouraged to make appointment with psychiatrist and psychologist as previously discussed. Also, previous started on Lexapro which she stopped taking due to suspected side effect of low-grade fever, advised okay to restart Lexapro 10 mg once daily if desired. Assessment & Plan (07/02/2021 2:37 PM HOME HEALTH NURSE LICENSED PRACTICAL): Chronic, stable, uncontrolled, not on medication previously [...] needed. Assessment & Plan (09/04/2021 1:29 PM HOME HEALTH NURSE LICENSED PRACTICAL): Chronic, currently asymptomatic, with x-rays ordered at initial/last visit- encouraged to get x-ray of lumbar spine along with x-ray of right hip for persistent right upper anterior thigh pain. Assessment & Plan (07/02/2021 2:38 PM HOME HEALTH NURSE LICENSED PRACTICAL): Chronic, episodic, with worsening upper right thigh pain-ordered x-ray of lumbar spine and right hip. Other constipation 07/02/2021 Assessment & Plan (12/28/2022 9:39 AM CDT): Chronic, episodic, not currently on daily medication-encouraged to use MiraLax as directed as needed. Assessment & Plan (07/02/2021 2:39 PM HOME HEALTH NURSE LICENSED PRACTICAL): Chronic, stable, likely related to daily iron supplement-recommended 1-2 Colace HS as needed. Bilateral lower extremity edema 07/02/2021 Assessment & Plan (12/28/2022 9:39 AM CDT): Chronic, stable, controlled with medication-continued on hydrochlorothiazide. Assessment & Plan (07/02/2021 2:40 PM HOME HEALTH NURSE LICENSED PRACTICAL): Chronic, stable, waxes and wanes per patient, on daily diuretic-continued on hydrochlorothiazide and encouraged to keep follow-up appointment with casting sorter, Dr. Brown. Gastroesophageal reflux dise ase with esophagitis without hemorrhage 08/03/2020 Assessment & Plan (12/28/2022 9:41 AM CDT): Chronic, stable, controlled with medication-continued on sucralfate, pantoprazole, and famotidine. Advised to follow-up with workplace trainer and assessor as recommended. Assessment & Plan (09/04/2021 1:33 PM HOME HEALTH NURSE LICENSED PRACTICAL): Chronic, stable, controlled with medication-continued on omeprazole, famotidine, and sucralfate per workplace trainer and assessor. Assessment & Plan (07/02/2021 2:35 PM HOME HEALTH NURSE LICENSED PRACTICAL): Chronic, stable, uncontrolled per patient report-continued on omeprazole, sucralfate, famotidine, and Zofran as directed. Encouraged to keep appointment today with workplace trainer and assessor to discuss symptoms. Assessment & Plan (08/03/2020 1:14 PM HOME HEALTH NURSE LICENSED PRACTICAL): Continue your pantoprazole BID Pepcid [place] diet. Shortness of breath 05/03/2020 Assessment & Plan (12/28/2022 9:41 AM CDT): Chronic, stable, likely multifactorial-continued on albuterol as directed as needed. Advised to follow-up with casting sorter and binder sorter as recommended. Encouraged weight loss. Assessment & Plan (01/03/2022 4:39 PM CDT): Chronic, stable, now established with a binder sorter with recent PFT-encouraged to keep recommended follow-up appointment with binder sorter, Dr. Lyons. Continued on albuterol inhaler as directed as needed. Assessment & Plan (12/06/2021 5:52 AM CDT): Chronic, stable, previously referred to pulmonology-advised to call to schedule an appointment. Assessment & Plan (09/04/2021 1:37 PM HOME HEALTH NURSE LICENSED PRACTICAL): Acute, intermittent-started on prednisone 20 mg 1 tablet twice daily x5 days. Encouraged to use albuterol inhaler as directed as needed for chest tightness, wheezing. and coughing jags. Instructed to go to ER if difficulty breathing or if not getting relief of symptoms with inhaler. Voiced understanding. Assessment & Plan (07/02/2021 2:32 PM HOME HEALTH NURSE LICENSED PRACTICAL): Chronic, episodic, stable, likely multifactorial, prescribed an inhaler with perceived benefit-continued on albuterol metered dose inhaler as directed as needed. Encouraged to follow-up with casting sorter, Dr. Brown, as recommended for pulmonary hypertension. Anemia 05/03/2020 Assessment & Plan (12/28/2022 9:41 AM CDT): Chronic, controlled at last check, not on multivitamin or iron supplement-will monitor CBC periodically. Assessment & Plan (09/04/2021 10:44 AM HOME HEALTH NURSE LICENSED PRACTICAL): Chronic, stable-encouraged to continue iron supplement daily. Assessment & Plan (07/02/2021 2:34 PM HOME HEALTH NURSE LICENSED PRACTICAL): Chronic, stable-reviewed with patient most recent CBC, [...] amlodipine, lisinopril, and hydrochlorothiazide. Encouraged follow-up with casting sorter as recommended. Assessment & Plan (08/12/2022 8:06 AM HOME HEALTH NURSE LICENSED PRACTICAL): Chronic, stable, controlled with medication-continued on metoprolol XL, amlodipine, lisinopril, and hydrochlorothiazide. Assessment & Plan (01/03/2022 4:42 PM CDT): Chronic, stable, uncontrolled on medication-continued on hydrochlorothiazide, lisinopril, metoprolol, and amlodipine. Encouraged to keep consultation appointment with casting sorter on 01/16/2022. Assessment & Plan (07/02/2021 2:31 PM HOME HEALTH NURSE LICENSED PRACTICAL): Chronic, stable, controlled on medications-continued on amlodipine, hydrochlorothiazide, lisinopril, and metoprolol. Encouraged to follow-up with casting sorter, Dr. Brown, as recommended. Pulmonary hypertension 12/12/2019 Assessment & Plan (12/28/2022 9:44 AM CDT): Chronicity and stability unknown-encouraged to follow-up with cardiology and pulmonology as recommended. Assessment & Plan (07/02/2021 2:30 PM HOME HEALTH NURSE LICENSED PRACTICAL): Chronic, stability unknown-encouraged to follow-up with casting sorter, Dr. Brown, as recommended. Sleep apnea 12/12/2019 Assessment & Plan (12/28/2022 9:43 AM CDT): Chronic, stability unknown-encouraged weight loss. Advised follow-up with sleep medicine as recommended. Assessment & Plan (07/02/2021 2:31 PM HOME HEALTH NURSE LICENSED PRACTICAL): Chronic, stability unknown-encouraged better compliance with CPAP, instructed to use nightly. 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 Assessment & Plan (01/03/2022 4:39 PM CDT): Chronic, stable, now established with a binder sorter with recent PFT-encouraged to keep recommended follow-up appointment with binder sorter, Dr. Lyons. Continued on albuterol inhaler as [...] symptoms. Assessment & Plan (09/04/2021 1:29 PM HOME HEALTH NURSE LICENSED PRACTICAL): Acute symptoms suggestive of acute bronchitis-started on azithromycin and prednisone, advised to use albuterol inhaler as directed as needed. Instructed to go to ER difficulty breathing. Patient voiced understanding. Productive cough 09/04/2021 12/23/2022 Assessment & Plan (09/04/2021 1:36 PM HOME HEALTH NURSE LICENSED PRACTICAL): Acute, sputum now white, previously yellow, but still with shortness of breath and chest tightness-started on Z-Rogers as directed as needed and prednisone 20 mg 1 tablet twice daily x5 days. Referred to binder sorter for further evaluation and management. Advised to go to ER if difficulty breathing or symptoms not relieved with albuterol inhaler. Voiced understanding. Ground glass opacity present on imaging of lung 09/04/2021 12/23/2022 Assessment & Plan (09/04/2021 1:34 PM HOME HEALTH NURSE LICENSED PRACTICAL): New finding on recent chest x-ray dated 09/01/2021, not present on x-ray dated 07/16/2021-started on Z-Rogers as directed as needed and prednisone 20 mg 1 tablet twice daily. Referred to binder sorter for furtgher evaluation and management of symptoms and abnormal chest x-ray. Suspected COVID-19 virus infection 08/22/2021 12/25/2022 Assessment & Plan (08/22/2021 12:05 PM HOME HEALTH NURSE LICENSED PRACTICAL): Recommended symptomatic treatment with [id number] medications and reminded can use albuterol inhaler [...] appointment. Assessment & Plan (09/04/2021 1:37 PM HOME HEALTH NURSE LICENSED PRACTICAL): Acute, stable-encouraged patient to schedule an appointment with heel boom operator referral made at initial/last visit on 07/02/2021. Assessment & Plan (07/02/2021 2:37 PM HOME HEALTH NURSE LICENSED PRACTICAL): Acute, episodic, worsening as evidence by increased frequency-referred to heel boom operator for further evaluation and management. Pain of right thigh 07/02/2021 12/26/19 23 Assessment & Plan (09/04/2021 1:35 PM HOME HEALTH NURSE LICENSED PRACTICAL): Chronic, stable, with x-rays ordered at initial/last visit-encouraged to get x- ray of lumbar spine along with x-ray of right hip for persistent right upper anterior thigh pain. Assessment & Plan (07/02/2021 2:39 PM HOME HEALTH NURSE LICENSED PRACTICAL): Chronic, episodic, worsening-ordered x-ray of lumbar spine [...] symptoms develop. Provided with a note via [employer] excusing absence from work today. Assessment & Plan (08/03/2020 1:15 PM HOME HEALTH NURSE LICENSED PRACTICAL): Muscle relaxant to help her body to relax. Cyclobenzaprine 10 mg Tylenol for discomfort. Drink fluids. Assessment & Plan (2020 2:51 PM HOME HEALTH NURSE LICENSED PRACTICAL): Instructed to continue with Mucinex DM and OTC cough suppressants. Patient instructed to Self-isolate 10 days from start of symptoms Increase fluid intake Report new or worsening symptoms Warning signs warranting immediate medical care: chest pain, trouble breathing, worsening shortness of breath Acute chest pain 12/12/2019 07/02/2021 Essential hypertension 12/12/201901/05 Dyspnea and respiratory abnormalities 12/23/2022 Encounters Date Type Department Care Team Description 04/17/[address] [address] Jessica Gutierres RN 04/16/2025 6:38 PM CDT - 04/16/2025 10:55 PM CDT Emergency [address] [place] [address] Discharge Disposition: Left without being seen from Last 3 Months Immunizations Immunization Administration Dates Next Due DTP [...] making you feel afraid or unsafe? Denies 04/16/2025 Comments No Sex and Gender Information Value Date Recorded Sex Assigned at Not on file Legal Sex Female 8:01 AM HOME HEALTH NURSE LICENSED PRACTICAL Gender Identity Female 11/11/2021 6:04 PM CDT Sexual Orientation Not on file Obstetrics History Para Term AB IAB SAB Ectopic Multiple Livin g Live Births 1 1 Date Outcome GA Total Labor Labor/2nd/3rd Weight Sex Type Anes PTL Digna A1 A5 Name Clin Last Filed Vital Signs Vital Sign Reading Time Taken Comments Blood Pressure 143/94 04/16/2025 10:33 PM CDT Pulse 69 04/16/2025 10:33 PM CDT Temperature 36.9 C (98.5 F) 04/16/2025 6:41 PM CDT Respiratory Rate 14 04/16/2025 10:33 PM CDT Oxygen Saturation 99% 04/16/2025 10:33 PM CDT Inhaled Oxygen Concentration - - Weight 113.4 kg (250 lb) 04/16/2025 6:46 PM CDT Height 167.6 cm (5' 6) 11/25/2023 3:54 PM CDT Body Mass Index 40.35 11/25/2023 3:54 PM CDT Plan of Treatment Health Maintenance Due Date Last Done Comments Pneumococcal vaccine <65 (1 of 2 - PCV) 2008 HPV Vaccines (1 - 3-dose SCD M series) 2016 Cervical Cancer Screening 11/12/2021 11/12/2020 Depression Screening 12/24/2023 12/23/2022, 12/23/2022, 01/03/2022, Additional history exists Regular Well Visit/Exam 18-64 12/24/2023, 09/24/2022, 11/12/2020 Covid-19 Vaccine (3 - 2024-2 6 season) 2025 02/20/2021, 12/10/2020 Influenza Vaccine (#1) 2025 4, 07/07/2023, 06/18/2022, Additional history exists DTaP/Tdap/Td Vaccine (5 - Td or Tdap) 09/08/2027 09/08/2017, 03/27/1995, 04/18/1994, Additional history exists Hepatitis B Screening Completed 11/12/2020 Hepatitis C Screening Completed 11/12/2020 Varicella Vaccines Discontinued Procedures Procedure Name Priority Date/Time Associated Diagnosis Comments TROPONIN T HIGH-SENSITIVITY 2-HOUR Timed 04/16/2025 9:10 PM CDT XR CHEST 1 VIEW ED 04/16/2025 6:57 PM CDT EGFR STAT 04/16/2025 6:53 PM CDT DIFFERENTIAL AUTO STAT 04/16/2025 6:5 3 PM CDT TROPONIN T HIGH-SENSITIVITY SERIES (BASELINE, 2HR, 4HR, 6HR) STAT 04/16/2025 6:53 PM CDT COMPREHENSIVE METABOLIC PANEL STAT 04/16/2025 6:53 PM CDT CBC WITH AUTO DIFFERENTIAL STAT 04/16/2025 6:53 PM CDT ECG 12-LEAD STAT 04/16/2025 6:49 PM CDT HEPATITIS PANEL, ACUTE Routine 11/12/2020 12:28 PM CDT Screening for STD (sexually transmitted disease) THINPREP PAP WITH HPV Routine 11/12/2020 12:01 AM CDT Well woman exam with routine gynecological exam from Last 3 Months or Most Recently Relevant to Health Maintenance Results * Troponin T high-sensitivity 2-hour (04/16/2025 9:10 PM CDT) Trop T hs <6 <=14 ng/L Comment: Interpretive Data For further hscTnT resources including the diagnostic algorithm and an aid in interpretation, copy and paste this link: [email or web address].testcatalog.org/show/[email or web address] Current Interpretive Data last revised 2020. Trop T hs delta 0 ng/L JOIEKELLY PROCTOR Trop T hs interp Insignificant RANAUD PROCTOR Blood 04/16/2025 9:10 PM CDT 04/16/2025 9:17 PM CDT Oniel Watkins DO LAB BLOOD ORDERABLES Final Result ARNAUD PROCTOR [address] [facility] Department [place] [address] * XR Chest 1 Vw Portable (If patient hemodynamically UNstable or UNable to ambulate) (04/16/2025 6:57PM CDT) Anatomical Region Laterality Modality Body, Chest N/A Computed Radiogr aphy 04/16/2025 7:13 PM CDT Narrative 04/16/2025 7:14 PM CDT EXAM DESCRIPTION: XR CHEST 1 VIEW REASON FOR STUDY: chest pain Per EMR: Pt to ED c/o left side CP with palpitations and sob. Also c/o increased weakness and fatigue. Pt states this has been going off and on for awhile. Denies fever, chills, cough. TECHNIQUE: AP radiographic view(s) of the chest. COMPARISON: Comparison 07/17/2023. FINDINGS: LUNGS: No focal opacity, pleural effusion, or pneumothorax. HEART/MEDIASTINUM: Cardiac silhouette normal in size. Mediastinal and hilar contours appear normal. LINES/TUBES: None. BONES: No acute osseous abnormality. IMPRESSION: No acute cardiopulmonary abnormality. THIS IS AN ELECTRONICALLY VERIFIED FINAL REPORT 04/16/2025 7:14 PM - Electronically signed by Yonathan Muniz M.D. T: Report ID: [id number] Reading Location: [id number] Procedure Note Amada Muniz MD - 04/16/2025 EXAM DESCRIPTION: XR CHEST 1 VIEW REASON FOR STUDY: chest pain Per EMR: Pt to ED c/o left side CP with palpitations and sob. Also c/o increased weakness and fatigue. Pt states this has been going off and onfor awhile. Denies fever, chills, cough. TECHNIQUE: AP radiographic view(s) of the chest. COMPARISON: Comparison 07/17/2023. FINDINGS: LUNGS: No focal opacity, pleural effusion, or pneumothorax. HEART/MEDIASTINUM: Cardiac silhouette normal in size. Mediastinal andhilar contours appear normal. LINES/TUBES: None. BONES: No acute osseous abnormality. IMPRESSION: No acute cardiopulmonary abnormality. THIS IS AN ELECTRONICALLY VERIFIED FINAL REPORT 04/16/2025 7:14 PM - Electronically signed by Yonathan Muniz M.D. T: Report ID: [id number] Reading Location: [place] [address] Oniel Watkins DO IMG XR PROCEDURES Final Res ult * Troponin T high-sensitivity series (baseline, 2hr, 4hr, 6hr) (04/16/2025 6:53 PM CDT) Trop T hs <6 <=14 ng/L Comment: Interpretive Data For further hscTnT resources including the diagnostic algorithm and an aid in interpretation, copy and paste this link: https://nrl.testcatalog.org/show/hsTrop Current Interpretive Data last revised 2020. Blood 04/16/2025 6:53 PM CDT 04/16/2025 6:56 PM CDT Oniel Watkins DO LAB BLOOD ORDERABLES Final Result JOIEQUO [address] [facility] Department [place] [address] * eGFR (04/16/2025 6:53 PM CDT) eGFR 84 >=60 mL/min/1. 73 m2 Comment: Interpretive Data Reference Interval Normal >/= 90 mL/min/1.73m2 Mildly decreased* 60 - 89 mL/min/1.73m2 Mildly to moderately decreased 45 - 59 mL/min/1.73m2 Moderately to severely decreased 30 - 44 mL/min/1.73m2 Severely decreased 15 - 29 mL/min/1.73m2 Kidney Failure < 15 mL/min/1.73m2 *Relative to young adult level Estimated glomerular filtration rate is determined by the 2020 CKD-EPI equation recommended by the National Kid[employer] (A Unifying Approach to GFR Estimation: Recommendations of the NKF-ASK Task Force on Reassessing the Inclusion of Race in Diagnosing Kidney Disease, JASN 2020). The CKD-EPI equation should not be used for patients with unstable renal function and has not been validated in children and those over 70. Current interpretive data was last reviewed 2021. Blood 04/16/2025 6:53 PM CDT 04/16/2025 6:56 PM CDT Oniel Watkins DO LAB BLOOD ORDERABLES Final Result [place] [id number] [facility] Department [place] [address] * (ABNORMAL) Differential, auto (04/16/2025 6:53 PM CDT) Neutrophil abs 4.50 1.50 - 6.50 K/cumm Imm gran abs 0.02 0.00 - 0.10 K/cumm [facility] Lymphocyte abs 3.47(H) 0.80 - 3.30 K/cumm [facility] Monocyte abs 0.93(H) 0.20 - 0.80 K/cumm [facility] Eosinophil abs 0.13 0.00 - 0.50 K/cumm [facility] Basophil abs 0.08 0.00 - 0.10 K/cumm [facility] Neutrophil pct 49.3 % [facility] Comment: Interpretive Data Percent cell count reference ranges are not reported, since discordance with absolute values may lead to misinterpretation of CBC data. Current Interpretive Data was last revised on 2017. Imm gran pct 0.2 % [facility] Comment: Interpretive Data Percent cell count reference ranges are not reported, since discordance with absolute values may lead to misinterpretation of CBC data. Current Interpretive Data was last revised on 2017. Lymphocyte pct 38.0 % [facility] Comment: Interpretive Data Percent cell count reference ranges are not reported, since discordance with absolute values may lead to misinterpretation of CBC data. Current Interpretive Data was last revised on 2017. Monocyte pct 10.2 % [facility] Comment: Interpretive Data Percent cell count reference ranges are not reported, since discordance with absolute values may lead to misinterpretation of CBC data. Current Interpretive Data was last revised on 2017. Eosinophil pct 1.4 % [facility] Comment: Interpretive Data Percent cell count reference ranges are not reported, since discordance with absolute values may lead to misinterpretation of CBC data. Current Interpretive Data was last revised on 2017. Basophil pct 0.9 % [facility] Comment: Interpretive Data Percent cell count reference ranges are not reported, since discordance with absolute values may lead to misinterpretation of CBC data. Current Interpretive Data was last revised on 2017. Blood 04/16/2025 6:53 PM CDT 04/16/2025 6:56 PM CDT Oniel Watkins DO LAB BLOOD ORDERABLES Final Result [facility] [address] [facility] Department [place] [address] * (ABNORMAL) CBC with auto differential (04/16/2025 6:53 PM CDT) WBC 9.13 3.80 - 9.90 K/cumm Hgb 10.7(L) 11.9 - 15.5 g/dL [facility] Hct 35.2(L) 35.6 - 45.5 % [facility] Plt 577(H) 150 - 400 K/cumm [facility] MPV 9.3 9.1 - 12.3 fL [facility] RBC 4.84 3.90 - 5.20 M/cumm [facility] MCV 72.7(L) 81.3 - 96.4 fL [facility] MCH 22.1(L) 27.1 - 33.3 pg [facility] MCHC 30.4(L) 32.3 - 35.7 g/dL [facility] RDW CV 17.3(H) 11.1 - 14.9 % [facility] RDW SD 44.9 35.7 - 48.1 fL [facility] NRBC abs 0.00 0.00 - 0.01 K/cumm [facility] Blood Venous blood specimen / Unknown 04/16/2025 6:53 PM CDT 04/16/2025 6:56 PM CDT Oniel Watkins DO LAB BLOOD ORDERABLES Final Result [facility] [address] [facility] Department [place] [address] * Comprehensive metabolic panel (04/16/2025 6:53 PM CDT) Sodium 137 135 - 145 mmol/L Potassium, pl 3.8 3.3 - 4.9 mmol/L [facility] Chloride 103 97 - 110 mmol/L [facility] CO2 22 22 - 32 mmol/L [facility] Anion gap 12 2 - 15 mmol/L [facility] BUN 15 6 - 25 mg/dL [facility] Creatinine 0.91 0.60 - 1.10 mg/dL [facility] Glucose 103 70 - 199 mg/dL [facility] Comment: Interpretive Data Fasting glucose >/= 126 mg/dl is diagnostic for diabetes. Fasting is defined as no caloric intake for at least 8 hours. Fasting glucose between 100 mg/dl to 125 mg/dl is diagnostic of prediabetes. In a patient with classic symptoms of hyperglycemia or hyperglycemic crisis, a random glucose >/= 200 mg/dl is diagnostic for diabetes. In the absence of unequivocal hyperglycemia, results should be confirmed by repeat testing. The classification and Diagnosis of Diabetes Diabetes Care 202; 46: S19-S40. Current interpretive data was last revised 2022. Calcium 9.2 8.5 - 10.3 mg/dL [facility] Bilirubin, total 0.2 0.1 - 1.2 mg/dL [facility] Protein, pl 7.6 6.5 - 8.5 g/dL [facility] Albumin 4.1 3.5 - 5.0 g/dL [facility] Alk phos 105 40 - 130 Units/L [facility] ALT 44 7 - 45 Units/L [facility] AST 44 10 - 45 Units/L [facility] Blood 04/16/2025 6:53 PM CDT 04/16/2025 6:56 PM CDT Oniel Watkins LAB BLOOD ORDERABLES Final Result Performing Organization Address City/[facility]/ZIP Co de Phone Number ARNAUD [address] [facility] Department [place] [address] * ECG 12 lead (04/16/2025 6:49 PM CDT) Pathologist [facility] Ventricular Rate EKG/Min 94 BPM [facility] Atrial Rate [address] [facility] MT-Interval (MSEC) [address] [facility] QRS-Interval (MSEC) [address] [facility] QT-Interval (MSEC) [address] [facility] QTc [address] [facility] P [place] [address] [facility] R [place] [address] [facility] T [place] [address] [facility] Diagnosis Normal sinus rhythm Possible Left atrial enlargement T-wave changes When compared with ECG of 17-JUL-2023 13:45, Significant changes have occurred Confirmed by SULTAN RODRIGUEZ M.D. ([id number]) on 04/17/2025 2:33:[address] [facility] 04/16/2025 6:49 PM CDT 04/17/2025 2:33 PM CDT Oniel Ajith Leblanchu DO ECG ORDERABLES Final Resul t Performing Organization Address City/[facility] Co de Phone Number [facility] * Hepatitis panel, acute (11/12/2020 12:28 PM CDT) Pathologist [facility] HepBsAg NONREACT NONREACTIVE [facility] Comment: Siemens CentaurXP using SANDY (chemiluminescent immunoassay) technology. NONREACTIVE: IgM antibodies to Hepatitis B Surface antigen not detected. REACTIVE: IgM antibodies to Hepatitis B Surface antigen detected. Reactive results will be confirmed by neutralization testing. HBsAb qn <3.10 mIU/mL [facility] Comment: Siemens CentaurXP using SANDY (chemiluminescent immunoassay) technology. 9.99 IU/L or less.....NONREACTIVE: IgM antibodies to Hepatitis B Surface antibody are not detected. 10.00 IU/L or greater..REACTIVE: IgM antibodies to Hepatitis B Surface antibody are detected. Hep B core IgM NONREACT NONREACTIVE [facility] Comment: Siemens CentaurXP using SANDY (chemiluminescent immunoassay) technology. NONREACTIVE: IgM antibodies to Hepatitis B Core antigen not detected. EQUIVOCAL: IgM antibodies to Hepatitis B Core antigen may or may not be present. Obtain a new specimen and retest. REACTIVE: IgM antibodies to Hepatitis B Core antigen detected. Hep A IgM NONREACT NONREACTIVE [facility] Comment: Siemens CentaurXP using SANDY (chemiluminescent immunoassay) technology. NONREACTIVE: IgM antibodies to Hepatitis A not detected. This does not exclude possibility of exposure to Hepatitis A or early acute infection. EQUIVOCAL:IgM antibodies to Hepatitis A may or may not be present. Suggest recollection and retest. REACTIVE: Antibodies to Hepatitis A detected. Hep C Ab NONREACT NONREACTIVE [facility] Comment: Siemens CentaurXP using SANDY (chemiluminescent immunoassay) [...] MICROBIOLOGY - GEN ERAL ORDERABLES Final Result [facility] [address] [place] [address], [facility] [phone] * ThinPrep Pap with HPV (11/12/2020 12:01 AM CDT) Pap test 11/12/2020 12:0 1 AM CDT 11/14/2020 9:57 AM CDT Narrative 11/19/2020 11:26 AM CDT [facility] Department of Pathology [address] [place], [place] [id number] Final Report with Addendum Patient Name: ETHEL JHA Address: [address] [place] [address] Gender: F : 1990 (Age: 30) Service: Laboratory Location: Lab [facility] #: [id number] Patient Type: [facility] Lab Taken: 11/12/2020 Received: 11/14/2020 Accessioned:: 11/15/2020 Reported: 11/19/2020 Physician(s): Dr. Ysabel Langston D.O. [facility] Diagnosis: Source of Specimen: Screening ThinPrep [...] determined by the Surgical Pathology Department at [facility] as part of an ongoing software quality manager program and in compliance with federally mandated [...] characteristics determined by the Surgical Pathology Department [facility]. It has not been cleared or approved by the U. S. Food and Drug Administration. 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
== END 2025-06-22 21:54 | disposition left against medical advice (07) ==
LOC: ANHED 23:25
PROVIDERS: Emergency Provider Student in an Organized Health Care Education/Training Program; PCP Nurse Practitioner Family
DX: R42 Dizziness and giddiness (principal)
CPT/HCPCS: 93005; 99199

== ENCOUNTER 2025-07-11 11:56 | Emergency (ER) | payer SELFPAY ==
--- NOTE | ~2025-07-11 | XR_ITS ---
EXAMINATION: XR chest 2V DATE: 07/11/2025 12:46 INDICATION: Chest pain, cough and congestion TECHNIQUE: PA and lateral views of the chest were obtained. COMPARISON: None FINDINGS: The lungs are clear with no focal airspace opacities, pulmonary edema, pleural effusion or pneumothorax. The cardiomediastinal silhouette is normal. Mild thoracic spondylosis. IMPRESSION: 1. No acute cardiopulmonary disease. Reviewed, dictated and finalized at location A. [facility] [employer]
--- NOTE | 2025-07-11 12:02 | ECG_ITS ---
Test Date: 2025-07-11 12:06:35 Measurements Intervals [place] Rate: 82 P: 39 [place]: 150 QRS: 16 QRSD: 84 T: 15 QT: 354 QTc: 416 Interpretive Statements SINUS RHYTHM LOW QRS VOLTAGE IN PRECORDIAL LEADS BORDERLINE T WAVE ABNORMALITY- INFERIOR LEADS BASELINE ARTIFACT- I, II, AVR, AVL, AVF, V1 BORDERLINE ECG Compared to ECG 06/22/2025 21:18:50 Low QRS voltage now present Electronically Signed On 07-11-2025 12:17:55 GRINDER SET UP OPERATOR CENTERLESS by Braydon Amaro D.O.
[2025-07-11 12:12] VITALS: BP 147/100; RESP 16; TEMP 36.8; O2SAT 100
[2025-07-11 12:20] LABS: Hematocrit 35.1 % (37.0-47.0); Hemoglobin 10.7 g/dL (12.0-15.0); Immature Granulocyte Percent A 0.4 % (0-0.5); Lymphocytes Absolute Auto 2.87 K/mm3 (0.9-3.2); Mean Corpuscular HGB Conc 30.5 g/dl (32-36); Mean Corpuscular Hemoglobin 21.9 pg (26-34); Mean Corpuscular Volume 71.8 fl (80-100); Nucleated Red Blood Cells Absolute Auto 0.000 K/mm3 (0.0-0.012); Nucleated Red Blood Cells Perc 0.0 % (0.0-0.2); Platelet Count Result 599 k/mm3 (150-375); Red Blood Count 4.89 M/mm3 (4.2-5.4); White Blood Count 11.0 K/mm3 (4.5-10.0)
[2025-07-11 12:32] LABS: Alanine Aminotransferase 38 U/L (6-35); Albumin Level 4.2 g/dL (3.5-5.1); Alkaline Phosphatase 96 U/L (38-126); Anion Gap 6 mmol/L (4-12); Aspartate Amino Transferase 33 U/L (14-36); Bilirubin,Total 0.4 mg/dL (0.2-1.3); Blood Urea Nitrogen 12 mg/dL (7-17); Calcium 9.1 mg/dL (8.4-10.2); Carbon Dioxide 23 mmol/L (22-30); Chloride 107 mmol/L (98-107); Estimated CRCL calculation 120 ml/min; Estimated Glomerular Filt Rate > 60; Glucose 85 mg/dL (65-110); Lipase 104 U/L (23-300); Potassium 4.0 mmol/L (3.4-5.0); Sodium 136 mmol/L (137-145); Total Protein 8.1 g/dL (6.3-8.2)
[2025-07-11 12:35] LABS: INR 1.1; Prothrombin Time 13.8 Seconds (11.1-14.7)
[2025-07-11 12:36] LABS: Partial Thromboplastin Time 29.7 Seconds (22.3-36.8)
[2025-07-11 12:42] LABS: Troponin I < 0.012 ng/mL (0.000-0.034)
[2025-07-11 12:52] LABS: Anisocytosis 2+; Ovalocytes 1+; Schistocytes None Seen
[2025-07-11 14:45] VITALS: PULSE 87
[2025-07-11] MEDS: IPRATROPIUM 0.5 MG/ALBUTEROL SULFATE 2.5 MG (BASE) AMPUL.NEB 3 ML INHALATION (14:45)
[2025-07-11] MEDS: AZITHROMYCIN 500 MG TABLET PO (14:47)
[2025-07-11 14:55] VITALS: PULSE 85; RESP 20; O2SAT 100
[2025-07-11 15:39] VITALS: BP 146/98
--- NOTE | 2025-07-11 22:11 | ED_ITS ---
HPI - Chest Pain General Chief Complaint: Chest Pain Stated Complaint: cold sx 3 weeks, SOB, CP, palpitations Time Seen by Provider: 07/11/25 13:52 History of Present Illness HPI narrative: Patient has been having cold symptoms for last few weeks, had initially be feeling better, then started having some chest tightness, and shortness of breath. History of asthma Related Data Allergies Allergy/AdvReac Type Severity Reaction Status Date / Time No Known Allergies Allergy Verified 07/11/25 12:16 Review of Systems 2 Review of Systems: All systems reviewed & are unremarkable except as noted in HPI and below Exam 2 Narrative: EXAMINATION OF ORGAN SYSTEMS/BODY AREAS: Constitutional: Vital signs per nursing GENERAL:No acute distress, non-toxic appearing. HEAD: Normal with no signs of head trauma. EYES: EOMI, conjunctiva normal ENT: Hearing grossly intact LUNGS: Nonlabored breathing. Diminished breath sounds. HEART: Regular rate and rhythm ABD: Soft, nontender to palpation EXT: Normal range of motion, no lower extremity edema SKIN: No rashes or lesions. NEURO: Alert. No gross focal sensory or strength deficits. PSYCH: Normal affect Course Vital Signs Vital signs: Vital Signs Temperature 98.2 F 07/11/25 12:12 Respiratory Rate 16 07/11/25 12:12 Blood Pressure 147/100 H 07/11/25 12:12 Pulse Oximetry 100 07/11/25 12:12 Oxygen Delivery Room Air 07/11/25 12:12 Temperature 98.2 F 07/11/25 12:12 Pulse Rate 85 07/11/25 14:55 Respiratory Rate 20 07/11/25 14:55 Blood Pressure 146/98 H 07/11/25 15:39 Pulse Oximetry 100 07/11/25 14:55 Oxygen Delivery Room Air 07/11/25 12:12 [facility] MDM Narrative Medical decision making narrative: Patient presenting with chest tightness and shortness of breath, had been dealing with 2-3 weeks of URI symptoms that had been improving, but the last few days started feeling worse again and having some chest tightness. EKG done in triage negative for acute ischemic changes. Cardiac workup is initiated. EKG: Performed in triage and interpreted by me. Normal sinus rhythm. Rate 82. Normal axis. NH normal. QRS duration normal. QTc normal. No pathologic Q waves. No ST segment elevation or depression to suggest acute ischemia. No RV strain pattern. HEART score is 0 with no acute ischemic changes on EKG and negative troponin making ACS unlikely. Wells low risk with negative PERC making PE unlikely. Presentation not consistent with dissection or aneurysm without radiation of pain or pulse deficits. CXR negative for mediastinal widening. No abdominal pain or signs of sepsis that would be concerning for esophageal perforation or mediastinitis. No cardiomegaly or JVD to suggest pericardial effusion/tamponade. Will trial some breathing treatments, I suspect she may have acute bronchitis, prescriptions provided for Z-Rogers, prednisone, albuterol. On repeat evaluation just prior to discharge, the patient is no acute distress. I had a long discussion with the patient and with shared decision making, she is comfortable with outpatient management. She was given clear return instructions by myself in person as well as on discharge paperwork. Differential Diagnosis Differential Diagnosis: Acute bronchitis/pneumonia, asthma exacerbation, ACS, anxiety, pneumothorax Lab Data 07/11/25 12:13 07/11/25 12:13 Labs: Lab Results 07/11/25 Range/Units 12:13 WBC 11.0 H (4.5-10.0) K/mm3 RBC 4.89 (4.2-5.4) M/mm3 Hgb 10.7 L (12.0-15.0) g/dL Hct 35.1 L (37.0-47.0) % MCV 71.8 L (80-100) fl MCH 21.9 L (26-34) pg MCHC 30.5 L (32-36) g/dl RDW 17.0 H (11.5-14.5) % Plt Count 599 H (150-375) k/mm3 MPV 9.3 (7.4-10.4) fl Immature Gran % (Auto) 0.4 (0-0.5) % Neut % (Auto) 61.8 (45.5-73.1) % Lymph % (Auto) 26.2 (18.3-44.2) % Mathews % (Auto) 10.0 H (2.6-8.5) % Eos % (Auto) 1.0 (0-4.4) % Baso % (Auto) 0.6 (0.2-1.2) % Lymph # (Auto) 2.87 (0.9-3.2) K/mm3 Mathews # (Auto) 1.1 H (0.1-0.6) K/mm3 Eos # (Auto) 0.1 (0-0.3) K/mm3 Baso # (Auto) 0.1 (0.0-0.1) K/mm3 Abs Immat Gran (auto) 0.04 H (0.00-0.031) K/mm3 Absolute Neuts (auto) 6.8 H (1.3-6.7) K/mm3 Absolute Nucleated RBC 0.000 (0.0-0.012) K/mm3 Band Neutrophils % Not Reportable Nucleated RBC % 0.0 (0.0-0.2) % Platelet Estimate Increased (Adequate) Anisocytosis 2+ Ovalocytes 1+ Schistocytes None seen PT 13.8 (11.1-14.7) Seconds INR 1.1 APTT 29.7 (22.3-36.8) Seconds Sodium 136 L (137-145) mmol/L Potassium 4.0 (3.4-5.0) mmol/L Chloride 107 (98-107) mmol/L Carbon Dioxide 23 (22-30) mmol/L Anion Gap 6 (4-12) mmol/L BUN 12 (7-17) mg/dL Creatinine 0.75 (0.7-1.0) mg/dL Estim Creat Clear Calc 120 ml/min Estimated GFR > 60 (59 - ) Glucose 85 (65-110) mg/dL Calcium 9.1 (8.4-10.2) mg/dL Total Bilirubin 0.4 (0.2-1.3) mg/dL AST 33 (14-36) U/L ALT 38 H (6-35) U/L Alkaline Phosphatase 96 (38-126) U/L Troponin I < 0.012 (0.000-0.034) ng/mL Total Protein 8.1 (6.3-8.2) g/dL Albumin 4.2 (3.5-5.1) g/dL Lipase 104 (23-300) U/L Imaging Data Radiologist's impression: ITS Impressions Chest X-Ray 07/11/25 12:51 IMPRESSION: 1. No acute cardiopulmonary disease. Discharge Plan Discharge Clinical Impression: Atypical chest pain, Acute bronchitis Patient Disposition: Home Condition: Stable Instructions: Antibiotic Form, Chest Pain (ED), Acute Bronchitis (ED) Additional Instructions: Please follow up with your doctor; take the medications as prescribed, you can always return for any further issues. Patient Language: Chinese Prescriptions: New azithromycin 250 mg tablet 250 mg PO DAILY 4 Days Qty: 4 0RF Rx Instructions: start on day 2 of therapy prednisone 20 mg tablet 40 mg PO DAILY 4 Days Qty: 8 0RF albuterol sulfate 90 mcg/actuation HFA aerosol inhaler 2 puff inhalation QID PRN (Reason: shortness of breath or wheezing) Qty: 8.5 0RF No Action ondansetron 4 mg tablet,disintegrating 4 mg PO Q8H PRN (Reason: nausea and vomiting) Qty: 14 0RF naproxen [Naprosyn] 500 mg tablet 500 mg PO BID Qty: 20 0RF Follow-up/Referrals: Joe,Love Concepcion APRN [Primary Care Provider, Unknown]
== END 2025-07-11 15:44 | disposition home or self-care (01) ==
LOC: ANHED 15:08
PROVIDERS: Emergency Medicine; Emergency Provider Emergency Medicine; PCP Nurse Practitioner Family
DX: J20.9 Acute bronchitis, unspecified (principal); R07.89 Other chest pain; J45.909 Unspecified asthma, uncomplicated
CPT/HCPCS: 36415; 71046; 80053; 83690; 84484; 85025; 85610; 85730; 93005; 94640; 99284; J7512